=== PATIENT | male | born 1965 | race Caucasian/White ===

== ENCOUNTER 2017-08-29 13:56 | Emergency (ER) | payer BC, OTHER ==
[2017-08-29] MEDS: NORCO, ANEXSIA 5/325MG TABLET (HYDROcodone/ACETAMINOPHEN) PO (17:03)
== END 2017-08-29 17:17 | disposition home or self-care (01) ==
LOC: M ED 13:56
DX: S22.32XA Fracture of one rib, left side, initial encounter for closed fracture (principal); W00.0XXA Fall on same level due to ice and snow, initial encounter; Y92.018 Other place in single-family (private) house as the place of occurrence of the external cause; F17.210 Nicotine dependence, cigarettes, uncomplicated
CPT/HCPCS: 71100

== ENCOUNTER → 2020-05-18 | Outpatient (CLI) | payer BC ==
[~2020-05-18] MED LIST: HYDR-3715 PO; TESS100C PO
--- NOTE | 2020-05-18 09:48 | REP ---
INDICATION: ESSENTIAL HYPERTENSION AND TOBACCO USE. COMPARISON: Comparison chest x-ray April 10, 2007. TECHNIQUE: Two views.. FINDINGS: The lungs are well inflated and free of infiltrate. The pleural angles are sharp. The heart size is normal. Pulmonary vasculature is not increased. No significant bony abnormality is seen. IMPRESSION: Negative chest x-ray. <Electronically signed by Jose Shelton > 05/18/20 0944
[2020-05-18 10:20] LABS: BASO # 0.1 10^3/uL (0.0-0.2); BASO % 0.7 % (0.0-1.0); EOS # 0.1 10^3/uL (0.0-0.5); EOS % 0.6 % (0.0-3.0); HEMATOCRIT 49.2 % (42.0-52.0); HEMOGLOBIN 15.9 g/dl (13.5-17.5); LYMPH # 2.2 10^3/uL (1.5-5.0); LYMPH % 20.7 % (24.0-44.0); MEAN CORPUSCULAR HEMOGLOBIN 28.8 pg (27.0-33.0); MEAN CORPUSCULAR HGB CONC 32.3 g/dl (32.0-36.5); MEAN CORPUSCULAR VOLUME 89.1 fl (80.0-96.0); MONO # 0.6 10^3/uL (0.0-0.8); MONO % 5.6 % (0.0-5.0); NEUTROPHILS # 7.7 10^3/uL (1.5-8.5); PLATELET COUNT, AUTOMATED 210 10^3/uL (150-450); RED BLOOD COUNT 5.52 10^6/uL (4.30-6.10); WHITE BLOOD COUNT 10.7 10^3/uL (4.0-10.0)
[2020-05-18 10:48] LABS: HEMOGLOBIN A1c 5.9 %
[2020-05-18 11:03] LABS: ALT/SGPT 27 U/L (12-78); BILIRUBIN,TOTAL 0.4 MG/DL (0.2-1.0); BLOOD UREA NITROGEN 12 MG/DL (7-18); CALCIUM LEVEL 9.2 MG/DL (8.5-10.1); CARBON DIOXIDE LEVEL 30 MEQ/L (21-32); CHLORIDE LEVEL 105 MEQ/L (98-107); FREE T4 1.28 NG/DL (0.76-1.46); GLOMERULAR FILTRATION RATE > 60.0 (>56); GLUCOSE, FASTING 93 MG/DL (70-100); POTASSIUM SERUM 4.3 MEQ/L (3.5-5.1); SODIUM LEVEL 140 MEQ/L (136-145); TOTAL PROTEIN 7.2 GM/DL (6.4-8.2)
== END ==
LOC: M WUC 09:03
PROVIDERS: ATTEND Physician Assistant
DX: I10 Essential (primary) hypertension (principal); Z72.0 Tobacco use

== ENCOUNTER → 2020-08-11 | Outpatient (CLI) | payer BC ==
[2020-08-11 13:36] LABS: BASO # 0.1 10^3/uL (0.0-0.2); BASO % 0.9 % (0.0-1.0); EOS # 0.2 10^3/uL (0.0-0.5); EOS % 1.7 % (0.0-3.0); HEMATOCRIT 47.6 % (42.0-52.0); HEMOGLOBIN 15.3 g/dl (13.5-17.5); LYMPH # 2.3 10^3/uL (1.5-5.0); LYMPH % 25.9 % (24.0-44.0); MEAN CORPUSCULAR HEMOGLOBIN 29.1 pg (27.0-33.0); MEAN CORPUSCULAR HGB CONC 32.1 g/dl (32.0-36.5); MEAN CORPUSCULAR VOLUME 90.7 fl (80.0-96.0); MONO # 0.6 10^3/uL (0.0-0.8); MONO % 6.9 % (0.0-5.0); NEUTROPHILS # 5.8 10^3/uL (1.5-8.5); NEUTROPHILS % 64.4 % (36.0-66.0); PLATELET COUNT, AUTOMATED 194 10^3/uL (150-450); RED BLOOD COUNT 5.25 10^6/uL (4.30-6.10)
[2020-08-11 13:58] LABS: BLOOD UREA NITROGEN 12 MG/DL (7-18); CALCIUM LEVEL 9.1 MG/DL (8.5-10.1); CARBON DIOXIDE LEVEL 33 MEQ/L (21-32); CHLORIDE LEVEL 106 MEQ/L (98-107); CHOLESTEROL LEVEL 218 MG/DL (<200); CREATININE FOR GFR 0.77 MG/DL (0.70-1.30); GLOMERULAR FILTRATION RATE > 60.0 (>56); GLUCOSE, FASTING 106 MG/DL (70-100); HDL CHOLESTEROL 42 MG/DL (>40); LDL CHOLESTEROL 160 MG/DL (<100); NON-HDL-C 176 MG/DL; POTASSIUM SERUM 4.1 MEQ/L (3.5-5.1); SODIUM LEVEL 142 MEQ/L (136-145); TRIGLYCERIDES LEVEL 82 MG/DL (<150)
== END ==
LOC: M WUC 09:32
PROVIDERS: ATTEND Family Medicine
DX: D72.829 Elevated white blood cell count, unspecified (principal); I11.9 Hypertensive heart disease without heart failure; Z13.220 Encounter for screening for lipoid disorders

== ENCOUNTER → 2020-09-04 | Outpatient (CLI) | payer BC ==
[~2020-09-04] MED LIST changes: +ASPI81CH33 PO; +ATEN25TA PO; +ATOR80TA59 PO; +LISI20TA33 PO
== END ==
LOC: M LABSMTC 10:11
PROVIDERS: ATTEND Anesthesiology
DX: Z01.812 Encounter for preprocedural laboratory examination (principal); Z20.822 Contact with and (suspected) exposure to COVID-19

== ENCOUNTER 2020-09-09 08:09 | Day surgery (SDC) | payer BC ==
[~2020-09-09] VITALS: Ht 182.9 cm; Wt 99.7 kg
[~2020-09-09 08:09] MED LIST changes: +LIDOCAINE 2% 100MG/5ML SDV (FOR ANES.) As Ordered ONE; +NS 1,000 ML IV ONE; +propofoL 200 MG/20 ML VIAL As Ordered ONE
--- OUTSIDE RECORDS SUMMARY | 2020-09-09 08:14 | CCD ---
Author Author [facility] Organization [facility] Address Unknown Phone Unavailable Care Team Providers Care R&D Lab Technician Name Role Phone Violet Mendoza Unavailable PROBLEMS Type Condition ICD9-CM Code LYL98-UY Code Onset Dates Condition S tatus SNOMED Code Notes Problem Leukocytosis, unspecified D72.829 Active 349378 006 Problem Hypertensive heart disease without heart failure I 11.9 Active 08473632 ALLERGIES No Known Allergies ENCOUNTERS from 1965 to 2020-07-23 Encounter Location Date Provider Diagnosis [facility] [address] [place] [address] Jul Violet Mendoza IMMUNIZATIONS Vaccine Route Administration Date Status Influenza (18 yrs & older) Flublok IM Intramuscular Jul 20, 2020 Administered SOCIAL HISTORY Tobacco Use: Social History Observation Description Date Details (start date - stop date) Current Smoker Sex Assigned At : Social History Observation Description Sex Assigned At Unknown Education: Question Answer Notes Level of Education: Not finished High School Language: Question Answer Notes Languages spoken: Portuguese Shinto: Question Answer Notes Shinto No lutheran beliefs that would impact health care. Alcohol Screening: Question Answer Notes Did you have a drink containing alcohol in the past year? Ye s Points 2 Interpretation Negative How often did you have six or more drinks on one occas ion in the past year? Never (0 points) How many drinks did you have on a typica l day when you were drinking in the past year? 3 or 4 (1 point) How often did you have a drink containing alcohol in t he past year? Monthly or less (1 point) Tobacco Use: Question Answer Notes Are you a: current smoker How many cigarettes a day do you smoke? 21-30 Are you interested in quitting? Thinking about quitting REASON FOR REFERRAL No Information VITAL SIGNS No information MEDICATIONS Medication SIG (Take, Route, Frequency, Duration) Notes Start Da te End Date Status Lisinopril 10 MG 1 tablet Orally Once a day for 30 day(s) Jul, Active Atenolol 25 MG 1 tablet Orally Once a day for 30 day(s) Active Aspirin 325 MG 1 tablet Orally Once a day for 30 day(s) Active PROCEDURES No Information RESULTS No Results REASON FOR VISIT flu shot injection site rxn MEDICAL (GENERAL) HISTORY Type Description Date Medical History hypertension Surgical History No Surgical history information Goals Section No Information Health Concerns No Information MEDICAL EQUIPMENT No Information MENTAL STATUS No Information FUNCTIONAL STATUS No Information ASSESSMENTS No Information PLAN OF TREATMENT Medication Medication Name Sig Start Date Stop Date Lisinopril 10 MG 1 tablet Orally Once a day for 30 day(s) Jul Next Appt Details Provider Name:Violet Kelly, 2020-08 08:30:00 AM, [address] [place], [address], Insurance Providers Payer Name Payer Address Payer Phone Insured Name Patient Relati onship to Insured Coverage Start Date Coverage End Date [place] [id number] [address] [facility] [id number] [phone] PAULINE HAMMOND
--- OUTSIDE RECORDS SUMMARY | 2020-09-09 08:14 | CCD | Continuity of Care Document ---
Author Author Rik PEREZ PA Organization Unknown Address [address] [place] [address] [place] [address] Phone [phone] Care Team Providers Care Park Aide Name Role Phone [facility] Justin AUTM [phone] Michaela Garcia MD AUTM [phone] Problems Description No Information Available Social History Type Date Description Comments Sex Unknown ETOH Use Occasionally consumes alcohol Tobacco Use Start: Unknown Patient is a current smoker, smo kes every day 1 ppd Smoking Status Reviewed: 07/03/20 Patient is a current smoker, smokes every day 1 ppd Allergies, Adverse Reactions, Alerts Description No Known Drug Allergies Medications Active Medications SIG Qnty Indications Ordering Provide r Date Doxycycline Monohydrate 100mg Tabl ets 1 tab by mouth twice a day for 10 days 20tabs J20.9 Amarjit Pinzon JR., M.D. 07/03/2020 Atenolol 25mg Tablets 1 by mouth every day in am 30tabs I10 Amarjit Pinzon JR., M.D. 08/2019 History Medications No Active Medications Unknown 08/2019 - 05/18/2020 Immunizations Description No Information Available Vital Signs Date Vital Result Comment 07/03/2020 1:47pm BP Systolic 140 mmHg BP Diastolic 100 mmHg Heart Rate 68 /min Respiratory Rate 14 /min O2 % BldC Oximetry 95 % Body Temperature 96.9 F Weight 227.00 lb Height 72 inches 6'0" BMI (Body Mass Index) 30.8 kg/m2 Pain Level 0 05/26/2020 2:06pm BP Systolic 140 mmHg manual BP Diastolic 94 mmHg manual Results Test Acquired Date Facility Test Result H/L Range Note CBC With Differential 05/18/2020 [facility] [address] [place], [place] [id number] [phone] White Blood Count 10.7 10 High 4.0-10.0 1 Red Blood Count 5.52 10 Normal 4.30-6.10 Hemoglobin 15.9 g/dL Normal 13.5-17.5 Hematocrit 49.2 % Normal 42.0-52.0 Mean Corpuscular Volume 89.1 fl Normal 80.0-96.0 Mean Corpuscular Hemoglobin 28.8 pg Normal 27.0-33.0 Mean Corpuscular HGB Conc 32.3 g/dL Normal 32.0-36.5 Red Cell Distribution Width 13.8 % Normal 11.5-14.5 Platelet Count, Automated 210 10 Normal 150-450 Neutrophils % 72.0 % High 36.0-66.0 Lymph % 20.7 % Low 24.0-44.0 [place] % 5.6 % High 0.0-5.0 Eos % 0.6 % Normal 0.0-3.0 Baso % 0.7 % Normal 0.0-1.0 Immature Granulocyte % 0.4 % Normal 0-3.0 Nucleated Red Blood Cell % 0.0 % Normal 0-0 Neutrophils # 7.7 10 Normal 1.5-8.5 Lymph # 2.2 10 Normal 1.5-5.0 [place] # 0.6 10 Normal 0.0-0.8 Eos # 0.1 10 Normal 0.0-0.5 Baso # 0.1 10 Normal 0.0-0.2 Comprehensive Metabolic Profil 05/18/2020 [facility] [address] [place] [address] [phone] Glucose, Fasting 93 mg/dL Normal 70-100 Blood Urea Nitrogen 12 mg/dL Normal 7-18 Creatinine For GFR 0.80 mg/dL Normal 0.70-1.30 Glomerular Filtration Rate > 60.0 Normal >56 2 Sodium Level 140 mEq/L Normal 136-145 Potassium Serum 4.3 mEq/L Normal 3.5-5.1 Chloride Level 105 mEq/L Normal 98-107 Carbon Dioxide Level 30 mEq/L Normal 21-32 Anion Gap 5 mEq/L Low 8-16 Calcium Level 9.2 mg/dL Normal 8.5-10.1 Ast/Sgot 14 U/L Normal 7-37 Alt/SGPT 27 U/L Normal 12-78 Alkaline Phosphatase 89 U/L Normal 45-117 Bilirubin,Total 0.4 mg/dL Normal 0.2-1.0 Total Protein 7.2 GM/DL Normal 6.4-8.2 Albumin 4.0 GM/DL Normal 3.2-5.2 Albumin/Globulin Ratio 1.3 Normal Hemoglobin A1c 05/18/2020 [facility] [address] [place], [place] [id number] [phone] Hemoglobin A1c 5.9 % Normal 3 Estimated Average Glucose 123 mg/dL High 60-110 FT4&TSH Panel 05/18/2020 [facility] [address] [place], [place] [address] [phone] Thyroid Stimulating Hormone 1.350 uIU/ML Normal 0. 358-3.740 Free T4 1.28 ng/dL Normal 0.76-1.46 1 Patient contacted 2 Units are mL/min/1.73 m2 Chronic Kidney Disease Staging per NKF: Stage I & II GFR >=60 Normal to Mildly Decreased Stage III GFR 30-59 Moderately Decreased Stage IV GFR 15-29 Severely Decreased Stage V GFR <15 Very Little GFR Left ESRD GFR <15 on SHIPPING SUPPORT CLERK 3 REFERENCE RANGES: <=5.6% NORMAL 5.7-6.4% SUGGESTS IMPAIRED GLUCOSE META BOLISM/PREDIABETIC >= 6.5% ABNORMAL Procedures Date Code Description Status 05/18/2020 61707 Electrocardiogram Complete Compl eted Medical Devices Description No Information Available Encounters Type Date Location Provider Dx Diagnosis Office Visit 07/03/2020 2:35p Main Office MICHELLE Martin I10 Essential (primary) hypertension J20.9 Acute bronchitis, unspecifie d Z72.0 Tobacco use Office Visit 05/26/2020 2:40p Main Office MICHELLE Martin I10 Essential (primary) hypertension Z72.0 Tobacco use Office Visit 05/18/2020 8:30a Main Office MICHELLE Martin I10 Essential (primary) hypertension Z72.0 Tobacco use Assessments Date Code Description Provider 07/03/2020 I10 Essential (primary) hypertension MICHELLE Martin 07/03/2020 J20.9 Acute bronchitis, unspecified [place] MICHELLE Aguilar 07/03/2020 Z72.0 Tobacco use MICHELLE Shook 05/26/2020 I10 Essential (primary) hypertension MICHELLE Martin 05/26/2020 Z72.0 Tobacco use MICHELLE Shook 05/18/2020 I10 Essential (primary) hypertension MICHELLE Martin 05/18/2020 Z72.0 Tobacco use MICHELLE Shook Plan of Treatment 07/03/2020 - MICHELLE Martin* I10 Essential (primary) hypertension * J20.9 Acute bronchitis, unspecified* New Medication:* Doxycycline Monohydrate 100 mg - 1 tab by mouth twice a day for 10 days * Comments:* Warm fluids/tylenol/rest/time.f/u PRN * Z72.0 Tobacco use Functional Status Description No Information Available Mental Status Description No Information Available Referrals Refer to Reason for Referral Status Appt Date Gonzalez Perez PA complete eye examination. Ne w HTN. + tobacco use. Last eye examination 40 yrs ago. Scheduled 08/20/2020 [facility] [address] [place] [address] [phone]
--- OUTSIDE RECORDS SUMMARY | 2020-09-09 08:14 | CCD | Continuity of Care Document ---
Author Author Rik ALEJANDRA MD Organization Unknown Address [address] [address] Phone [phone] Care Team Providers Care [facility] Corpsman Name Role Phone Violet Mendoza D.O. AUTM [phone] Problems Active Problems Provider Date Essential hypertension Christo Alejandra MD Onset: 021 Social History Type Date Description Comments Sex Unknown ETOH Use Denies alcohol use Tobacco Use Start: Unknown Smokes 1 Pack A Day X38YRS Recreational Drug Use Denies Drug Use Allergies, Adverse Reactions, Alerts Description No Known Drug Allergies Medications Active Medications SIG Qnty Indications Ordering Provide r Date Lisinopril 10mg Tablets 1 by mouth every day Unknown Atenolol 25mg Tablets every d ay Unknown Aspirin Adult 325mg Tablets e very day Unknown Immunizations Description No Information Available Vital Signs Date Vital Result Comment 08/11/2020 11:32am BP Systolic 175 mmHg BP Diastolic 119 mmHg Heart Rate 63 /min Height 72 inches 6'0" Weight 230.25 lb BMI (Body Mass Index) 31.2 kg/m2 [place] Body Weight 178 lb Weight 104.441 kg BSA (Body Surface Area) 2.26 m2 Results Description No Information Available Procedures Description No Information Available Medical Devices Description No Information Available Encounters Description No Information Available Assessments Date Code Description Provider 08/11/2020 Z12.11 Encounter for screening for alla gnant neoplasm of colon Christo Alejandra MD 08/11/2020 Z85.038 Personal history of other malignant neoplasm of large intestine Christo Alejandra MD Plan of Treatment 08/11/2020 - Christo Alejandra MD* Z12.11 Encounter for screening for malignant neoplasm of colon* Comments:* 1. Discussed with patient the rationale for colon cancer screening as well as the different options for screening. Patient is average risk for colon cancer which is a risk up to 4.4% with 90% of colon cancer occuring after age 50. The incidence of colon cancer increases as a persistent ages. Discussed risk factors for colon cancer2. Discussed split dosed bowel prep.3.Discussed risks and benefits of colonoscopy including risks of bleeding and perforation, splenic laceration, risks from the iv sedation, risks from the bowel prep, and need for surgery if any significant bleeding and perforation occurs. Patient's questions and concerns addressed at this point. Patient has agreed to proceed. * Z85.038 Personal history of other malignant neoplasm of large intestine Functional Status Description No Information Available Mental Status Description No Information Available Referrals Refer to Reason for Referral Status Appt Date Christo Alejandra MD COLONOSCOPY Scheduled 08/05/[address] [place] [id number] [phone]
--- OUTSIDE RECORDS SUMMARY | 2020-09-09 08:14 | CCD ---
Author Author [facility] Organization [facility] Address Unknown Phone Unavailable Care Team Providers Care Fruit Inspector Name Role Phone Violet Mendoza Unavailable PROBLEMS Type Condition ICD9-CM Code MML69-KT Code Onset Dates Condition S tatus W/U Status Risk SNOMED Code Notes Problem Leukocytosis, unspecified D72.829 Active confirmed 110935430 Problem Dyslipidemia E78.5 Active confirmed 5959873 07 Problem Hypertensive heart disease without heart failure I 11.9 Active confirmed 21401968 ALLERGIES No Known Allergies ENCOUNTERS from 1965 to 2020-08-20 Encounter Location Date Provider Diagnosis [facility] [address] [place] [address] Aug Violet Mendoza IMMUNIZATIONS Vaccine Route Administration Date [...] School Language: Question Answer Notes Languages spoken: Wolof Christian: Question Answer Notes Christian No amish beliefs that would impact health care. Sexual Hx: Question Answer Notes Had sex in the last 12 months (vaginal, oral, or anal)? Yes Have you ever had an STD? No with Women only Use protection? No Alcohol Screening: Question Answer Notes Did you [...] Notes Start Da te End Date Status Atenolol 25 MG 1 tablet Orally Once a day for 90 days Active Aspirin 325 MG 1 tablet Orally Once a day for 30 day(s) Active Lisinopril 20 MG 1 tablet Orally Once a day for 90 day(s) Aug, Active Atorvastatin Calcium 80 MG 1 tablet Orally Once a day for 30 day (s) Aug, Active PROCEDURES No Information RESULTS No Results REASON FOR VISIT med question MEDICAL (GENERAL) HISTORY Type Description Date Medical History hypertension Surgical History No know Surgical history Goals Section No Information Health Concerns No Information MEDICAL EQUIPMENT No Information MENTAL STATUS No Information FUNCTIONAL STATUS No Information ASSESSMENTS No Information PLAN OF TREATMENT Medication Medication Name Sig Start Date Stop Date Atenolol 25 MG 1 tablet Orally Once a day for 90 days Lisinopril 20 MG 1 tablet Orally Once a day for 90 day(s) Aug Atorvastatin Calcium 80 MG 1 tablet Orally Once a day for 30 day(s) Aug, Next Appt Details Provider Name:Violet Grimaldoleo 2020-09 08:00:00 AM, [address] [place], [address], Insurance Providers Payer Name Payer Address Payer Phone Insured Name Patient Relati onship to Insured Coverage Start Date Coverage End Date DENYS PONCE [facility] [address] [facility] [id number] PAULINE LEON
--- OUTSIDE RECORDS SUMMARY | 2020-09-09 08:14 | CCD ---
Author Author [facility] Organization [facility] Address Unknown Phone Unavailable Care Team Providers Care Call Circuit Worker Name Role Phone DillanMic baileygan Unavailable PROBLEMS Type Condition ICD9-CM Code HHW48-JD Code Onset Dates Condition S tatus W/U Status Risk SNOMED Code Notes Problem Leukocytosis, unspecified D72.829 Active confirmed 883759247 Problem Dyslipidemia E78.5 Active confirmed 4514144 07 Problem Hypertensive heart disease without heart failure I 11.9 Active confirmed 21572224 ALLERGIES No Known Allergies ENCOUNTERS from 1965 to 2020-08-21 Encounter Location Date Provider Diagnosis [facility] [address] [place] [id number] Aug Violet Mendoza Hypertensive heart disease without heart failure I11.9 ; Leukocytosis, unspecified D72.829 and Dyslipidemia E78.5 IMMUNIZATIONS Vaccine Route Administration Date Status Influenza [...] School Language: Question Answer Notes Languages spoken: Sami Orthodoxy: Question Answer Notes Orthodoxy No baptist beliefs that would impact health care. Sexual [...] REASON FOR REFERRAL No Information VITAL SIGNS Weight 227 lbs Aug, Height 6' in Aug, BMI 30.78 kg/m2 Aug, Heart Rate 72 /min Aug, Respiratory Rate 18 /min Aug, Temperature 98.0 degrees Fahrenheit Aug, Oximetry 94%RA Aug, Blood pressure systolic 157 mm Hg Aug, Blood pressure diastolic 96 mm Hg Aug, MEDICATIONS Medication SIG (Take, Route, Frequency, Duration) [...] Information RESULTS No Results REASON FOR VISIT follow up blood pressure MEDICAL (GENERAL) HISTORY Type Description Date Medical History hypertension Surgical History No know Surgical history Goals Section No Information Health Concerns No Information MEDICAL EQUIPMENT No Information MENTAL STATUS No Information FUNCTIONAL STATUS No Information ASSESSMENTS Encounter Date Diagnosis Assessment Notes Treatment Notes Treatm ent Clinical Notes Aug, Hypertensive heart disease without heart failure (ICD-10 - I11.9) As blood pressure is still elevated it was recommended that dose of lisinopril be increased to 20 mg daily. Follow-up in 1 month to monitor for response to treatment. BMP prior to monitor electrolytes, renal function Aug, Leukocytosis, unspecified (ICD-10 - D72.829) Resolved, no further treatment needed at this time Aug, Dyslipidemia (ICD-10 - E78.5) Patient with elevated ten-year ASCVD risk of 22%. Based on cardiac risk recommended starting statin therapy. Patient advised about potential adverse effects: Muscle aches and pains, rhabdomyolysis. If patient develops aches or pains, they should stop medication and call our office. If patient develops rhabdomyolysis which would present as dark Coca-Cola colored urine that they should stop medication and seek immediate medical attention. PLAN OF TREATMENT Medication Medication Name Sig Start Date Stop Date Atenolol 25 MG 1 tablet Orally Once a day for 90 days Lisinopril 20 MG 1 tablet Orally Once a day for 90 day(s) Aug Atorvastatin Calcium 80 MG 1 tablet Orally Once a day for 30 day(s) Aug, Treatment Notes Assessment Notes Clinical Notes Hypertensive heart disease without heart failure As blood pressure is still elevated it was recommended that dose of lisinopril be increased to 20 mg daily. Follow-up in 1 month to monitor for response to treatment. BMP prior to monitor electrolytes, renal function Leukocytosis, unspecified Resolved, no f urther treatment needed at this time Dyslipidemia Patient with elevate d ten-year ASCVD risk of 22%. Based on cardiac risk recommended starting statin therapy. Patient advised about potential adverse effects: Muscle aches and pains, rhabdomyolysis. If patient develops aches or pains, they should stop medication and call our office. If patient develops rhabdomyolysis which would present as dark Coca-Cola colored urine that they should stop medication and seek immediate medical attention. Future Test Test Name Order Date Basic Metabolic Profile (BMP) 20200915 Next Appt Details 4 Weeks: follow up blood pressure Reason : Provider Name:Violet Mendoza, 2020-09 08:00:00 AM, [address] [place], [address], Insurance Providers Payer Name Payer Address Payer Phone Insured Name Patient Relati onship to Insured Coverage Start Date Coverage End Date [place] [address] [address] [facility] [id number] PAULINE LEON self
--- OUTSIDE RECORDS SUMMARY | 2020-09-09 08:14 | CCD | Continuity of Care Document ---
Author Author Rik PEREZ PA Organization Unknown Address [address] [place] [address] [place] [address] Phone [phone] Care Team Providers Care Stone Sawyer Name Role Phone [facility] Justin AUTM [phone] Michaela Garcia MD AUTM [phone] Problems Description No Information Available Social History [...] H/L Range Note CBC With Differential 05/18/2020 [facility] [address] [place], [place] [id number] [phone] White Blood Count 10.7 10 High 4.0-10.0 [...] 36.0-66.0 Lymph % 20.7 % Low 24.0-44.0 [place] % 5.6 % High 0.0-5.0 Eos % 0.6 % Normal 0.0-3.0 Baso % 0.7 % Normal 0.0-1.0 Immature Granulocyte % 0.4 % Normal 0-3.0 Nucleated Red Blood Cell % 0.0 % Normal 0-0 Neutrophils # 7.7 10 Normal 1.5-8.5 Lymph # 2.2 10 Normal 1.5-5.0 [place] # 0.6 10 Normal 0.0-0.8 Eos # 0.1 10 Normal 0.0-0.5 Baso # 0.1 10 Normal 0.0-0.2 Comprehensive Metabolic Profil 05/18/2020 [facility] [address] [place] [address] [phone] Glucose, Fasting 93 mg/dL Normal 70-100 Blood [...] Albumin/Globulin Ratio 1.3 Normal Hemoglobin A1c 05/18/2020 [facility] [address] [place], [place] [id number] [phone] Hemoglobin A1c 5.9 % Normal 3 Estimated Average Glucose 123 mg/dL High 60-110 FT4&TSH Panel 05/18/2020 [facility] [address] [place], [place] [id number] [phone] Thyroid Stimulating Hormone 1.350 uIU/ML Normal 0. 358-3.740 Free T4 1.28 ng/dL Normal 0.76-1.46 1 Patient contacted 2 Units are mL/min/1.73 m2 Chronic Kidney Disease Staging per NKF: Stage I & II GFR >=60 Normal to Mildly Decreased Stage III GFR 30-59 Moderately Decreased Stage IV GFR 15-29 Severely Decreased Stage V GFR <15 Very Little GFR Left ESRD GFR <15 on SLEEPER CUTTER 3 REFERENCE RANGES: <=5.6% NORMAL 5.7-6.4% SUGGESTS IMPAIRED GLUCOSE META BOLISM/PREDIABETIC >= 6.5% ABNORMAL Procedures Date Code Description Status 05/18/2020 93210 Electrocardiogram Complete Compl eted Medical Devices Description [...] eye examination 40 yrs ago. Scheduled 08/20/2020 [facility] [address] [place] [address] [phone]
--- OUTSIDE RECORDS SUMMARY | 2020-09-09 08:14 | CCD ---
Author Author [facility] Organization [facility] Address Unknown Phone Unavailable Care Team Providers Care All Terrain Vehicle Technician Name Role Phone Kelly Violet Unavailable PROBLEMS Type Condition ICD9-CM Code WEM76-SC Code Onset Dates Condition S tatus SNOMED Code Notes Problem Leukocytosis, unspecified D72.829 Active 078654 006 Problem Hypertensive heart disease without heart failure I 11.9 Active [id number] ALLERGIES No Known Allergies ENCOUNTERS from 1965 to 2020-07-22 Encounter Location Date Provider Diagnosis [facility] [address] [place] [address] 04 Jul Violet Mendoza Hypertensive heart disease without heart failure I11.9 ; Leukocytosis, unspecified D72.829 ; Prediabetes R73.03 ; Family history of colon cancer Z80.0 ; Colon cancer screening Z12.11 ; Lipid screening Z13.220 and Encounter for immunization Z23 IMMUNIZATIONS Vaccine Route Administration Date Status Influenza [...] School Language: Question Answer Notes Languages spoken: Prydeinig Restoration: Question Answer Notes Restoration No voodoo beliefs that would impact health care. Alcohol [...] No Information VITAL SIGNS Weight 227 lbs lbs Jul, Height 6' in Jul, BMI 30.78 kg/m2 Jul, Heart Rate 66 /min Jul, Respiratory Rate 18 /min Jul, Temperature 98.4 degrees Fahrenheit Jul, Oximetry 97%ra Jul, Blood pressure systolic 151 mm Hg Jul, Blood pressure diastolic 90 mm Hg Jul, MEDICATIONS Medication SIG (Take, Route, Frequency, Duration) Notes Start Da te End Date Status Lisinopril 10 MG 1 tablet Orally Once a day for 30 day(s) Jul, Active Atenolol 25 MG 1 tablet Orally Once a day for 30 day(s) Active Aspirin 325 MG 1 tablet Orally Once a day for 30 day(s) Active PROCEDURES No Information RESULTS No Results REASON FOR VISIT to est MEDICAL (GENERAL) HISTORY Type Description Date Medical History hypertension Surgical History No Surgical history information Goals Section No Information Health Concerns No Information MEDICAL EQUIPMENT No Information MENTAL STATUS No Information FUNCTIONAL STATUS No Information ASSESSMENTS Encounter Date Diagnosis Assessment Notes Treatment Notes Treatm ent Clinical Notes Jul, Hypertensive heart disease without heart failure (ICD-10 - I11.9) As patient's blood pressure remains elevated patient will be started on 10 mg of daily lisinopril. Counseled about potential adverse effects of medication including dizziness, lightheadedness, electrolyte disturbance. Jul, Leukocytosis, unspecified (ICD-10 - D72.829) We will repeat CBC with next blood work Jul, Prediabetes (ICD-10 - R73.03) Will monitor with repeat hemoglobin A1c in 6-12 months Jul, Family history of colon cancer (ICD-10 - Z80.0) Patient agreeable to referral for screening colonoscopy Jul, Colon cancer screening (ICD-10 - Z12.11) Jul, Lipid screening (ICD-10 - Z13.220) Lipid screen will be performed with next set of blood work Jul, Encounter for immunization (ICD-10 - Z23) Patient Educated with: FLU Vaccine, Inactivated [id number] (FLU Vaccine, Inactivated [id number]) PLAN OF TREATMENT Medication Medication Name Sig Start Date Stop Date Lisinopril 10 MG 1 tablet Orally Once a day for 30 day(s) Jul Treatment Notes Assessment Notes Clinical Notes Hypertensive heart disease without heart failure As patient's blood pressure remains elevated patient will be started on 10 mg of daily lisinopril. Counseled about potential adverse effects of medication including dizziness, lightheadedness, electrolyte disturbance. Leukocytosis, unspecified We will repeat CBC with next blood work Prediabetes Will monitor with re peat hemoglobin A1c in 6-12 months Family history of colon cancer Patient a greeable to referral for screening colonoscopy Lipid screening Lipid screen will be performed with next set of blood work Encounter for immunization Patient Educated with: FLU Vaccine, Inactivated [id number] (FLU Vaccine, Inactivated [id number]) Treatment Notes Test Name Order Date Immunization: Flublok Quadrivalent (18 years & older) 0.5mL IM (Influenza) 2020-07-22 Future Test Test Name Order Date CBC with Differential [id number] Basic Metabolic Profile (BMP) [id number] LIPID PANEL (CARDIAC RISK) [id number] Next Appt Details 4 Weeks: follow up blood pressure Reason : Provider Name:Violet Mendoza, 2020-08 08:30:00 AM, [address] [place], [address], Insurance Providers Payer Name Payer Address Payer Phone Insured Name Patient Relati onship to Insured Coverage Start Date Coverage End Date [employer] [place] [id number] [address] [facility] [id number] [place]
--- OUTSIDE RECORDS SUMMARY | 2020-09-09 08:15 | CCD ---
Author Author [facility] Organization [facility] Address Unknown Phone Unavailable Care Team Providers Care Loss Prevention Specialist Name Role Phone Lester, W Matthew RPA-C Unavailable Unavailable Lester, W Matthew RPA-C Unavailable Unavailable Lester, W Matthew RPA-C Unavailable Unavailable Lester, W Matthew RPA-C Unavailable Unavailable Lester, W Matthew RPA-C Unavailable Unavailable Lester, W Matthew RPA-C Unavailable Unavailable Lester, W Matthew RPA-C Unavailable Unavailable Lester, W Matthew RPA-C Unavailable Unavailable Lester, W Matthew RPA-C Unavailable Unavailable Lester, W Matthew RPA-C Unavailable Unavailable Lester, W Matthew RPA-C Unavailable Unavailable Lester, W Matthew RPA-C Unavailable Unavailable Lester, W Matthew RPA-C Unavailable Unavailable Lester, W Matthew RPA-C Unavailable Unavailable Lester, W Matthew RPA-C Unavailable Unavailable Lester, W Matthew RPA-C Unavailable Unavailable DEBORAH, RAMIREZ PAUL PA Unavailable Unavailable DEBORAH, RAMIREZ PAUL PA Unavailable Unavailable DEBORAH, RAMIREZ PAUL PA Unavailable Unavailable DEBORAH, RAMIREZ PAUL PA Unavailable Unavailable DEBORAH, RAMIREZ PAUL PA Unavailable Unavailable DEBORAH, RAMIREZ PAUL PA Unavailable Unavailable DEBORAH, RAMIREZ PAUL PA Unavailable Unavailable DEBORAH, RAMIREZ PAUL PA Unavailable Unavailable DEBORAH, RAMIREZ PAUL PA Unavailable Unavailable DEBORAH, RAMIREZ PAUL PA Unavailable Unavailable DEBORAH, RAMIREZ PAUL PA Unavailable Unavailable DEBORAH, RAMIREZ PAUL PA Unavailable Unavailable DEBORAH, RAMIREZ PAUL PA Unavailable Unavailable DEBORAH, RAMIREZ PAUL PA Unavailable Unavailable DEBORAH, RAMIREZ PAUL PA Unavailable Unavailable DEBORAH, RAMIREZ PAUL PA Unavailable Unavailable DEBORAH, RAMIREZ PAUL PA Unavailable Unavailable DEBORAH, RAMIREZ PAUL PA Unavailable Unavailable DEBORAH, RAMIREZ PAUL PA Unavailable Unavailable DEBORAH, RAMIREZ PAUL PA Unavailable Unavailable DEBORAH, RAMIREZ PAUL PA Unavailable Unavailable DEBORAH, RAMIREZ PAUL PA Unavailable Unavailable LETTIERE, A IAN PA Unavailable Unavailable LETTIERE, A IAN PA Unavailable Unavailable LETTIERE, A IAN PA Unavailable Unavailable LETTIERE, A IAN PA Unavailable Unavailable LETTIERE, A IAN PA Unavailable Unavailable LETTIERE, A IAN PA Unavailable Unavailable LETTIERE, A IAN PA Unavailable Unavailable LETTIERE, A IAN PA Unavailable Unavailable LETTIERE, A IAN PA Unavailable Unavailable LETTIERE, A IAN PA Unavailable Unavailable LETTIERE, A IAN PA Unavailable Unavailable LETTIERE, A IAN PA Unavailable Unavailable LETTIERE, A IAN PA Unavailable Unavailable LETTIERE, A IAN PA Unavailable Unavailable LETTIERE, A IAN PA Unavailable Unavailable LETTIERE, A IAN PA Unavailable Unavailable LETTIERE, A IAN PA Unavailable Unavailable LETTIERE, A IAN PA Unavailable Unavailable LETTIERE, A IAN PA Unavailable Unavailable LETTIERE, A IAN PA Unavailable Unavailable LETTIERE, A IAN PA Unavailable Unavailable LETTIERE, A IAN PA Unavailable Unavailable LETTIERE, A IAN PA Unavailable Unavailable LETTIERE, A IAN PA Unavailable Unavailable LETTIERE, A IAN PA Unavailable Unavailable LETTIERE, A IAN PA Unavailable Unavailable LETTIERE, A IAN PA Unavailable Unavailable LETTIERE, A IAN PA Unavailable Unavailable LETTIERE, A IAN PA Unavailable Unavailable Re-disclosure Warning The records that you are about to access may contain information from federally-assisted alcohol or drug abuse programs. If such information is present, then the following federally mandated warning applies: This information has been disclosed to you from records protected by federal confidentiality rules (42 CFR part 2). The federal rules prohibit you from making any further disclosure of this information unless further disclosure is expressly permitted by the written consent of the person to whom it pertains or as otherwise permitted by 42 CFR part 2. A general authorization for the release of medical or other information is NOT sufficient for this purpose. The Federal rules restrict any use of the information to criminally investigate or prosecute any alcohol or drug abuse patient.The records that you are about to access may contain highly sensitive health information, the redisclosure of which is protected by Article 27-F of the [facility] Public Health law. If you continue you may have access to information: Regarding HIV / AIDS; Provided by facilities licensed or operated by the [facility] Office of Mental Health; or Provided by the [facility] Office for People With Developmental Disabilities. If such information is present, then the following [facility] mandated warning applies: This information has been disclosed to you from confidential records which are protected by state law. State law prohibits you from making any further disclosure of this information without the specific written consent of the person to whom it pertains, or as otherwise permitted by law. Any unauthorized further disclosure in violation of state law may result in a fine or snf sentence or both. A general authorization for the release of medical or other information is NOT sufficient authorization for further disc losure. Encounters Encounter Providers Location Date Indications Data Source(s ) Unknown [address] [facility] [address] 08/19/2020 12:00:00 AM EST eCW1 (Critical access hospital) Outpatient [address] [facility] [place] [address] 08/18/2020 12:00:00 AM EST eCW1 (Critical access hospital) [place] [address] [facility] [place] [address] 07/22/2020 12:00:00 AM EST eCW1 (Critical access hospital) Outpatient [address] [facility] [place] [address] 07/20/2020 12:00:00 AM EST eCW1 (Critical access hospital) Outpatient Attender: IAN Ruth Prim jeromy 07/03/2020 01:35:00 PM EST [facility] ([facility]) Outpatient Attender: IAN Ruth Prim jeromy 05/26/2020 01:40:00 PM EST MED[facility] ([facility]) Outpatient Attender: IAN Ruth Prim jeromy 05/18/2020 07:30:00 AM EST [facility] ([facility], [facility]) Emergency Attender: Matthew Lester RPA-C 07:20:00 PM EST - 07/12/2019 07:50:00 PM [facility] Patient discharged. Emergency Attender: PAUL MARTINEZ 01:17:00 PM EDT - 12/09/2018 02:18:00 PM [facility] Patient discharged. Immunizations Vaccine Date Status Description Data Source(s) influenza, recombinant, quadrIvalent,injectable, prese rvative free 07/20/2020 11:21:00 AM EST completed eCW1 ([facility]) influenza, recombinant, quadrIvalent,injectable, prese rvative free 07/20/2020 11:21:00 AM EST completed eCW1 ([facility]) influenza, recombinant, quadrIvalent,injectable, prese rvative free 07/20/2020 11:21:00 AM EST completed eCW1 ([facility]) influenza, recombinant, quadrIvalent,injectable, prese rvative free 07/20/2020 11:21:00 AM EST completed eCW1 ([facility]) Medications Medication Brand Name Start Date Product Form Dose Route Admi nistrative Instructions Pharmacy Instructions Status Indications Reaction Description Data Source(s) 17.5-3.13-1.6 gram 09/02/2020 12:00:00 AM EST recon soln 354 DIRECTED BY CORNELL BOWEL PREP INSTRUCTIONS DIRECTED BY CORNELL BOWEL PREP INSTRUCTIONS SOLD: 09/05/2020 [facility] Lisinopril 20 MG Oral Tablet Lisinopril 20 MG 08/18/2020 12:00:00 A M EST 1.0 {tablet} active Lisinopril 20 MG eCW1 ( [facility]) Lisinopril 20 MG Oral Tablet Lisinopril 20 MG 08/18/2020 12:00:00 A M EST 1.0 {tablet} active Lisinopril 20 MG eCW1 ( [facility]) atorvastatin 80 MG Oral Tablet Atorvastatin Calcium 80 MG Atorvastatin Calcium 80 MG 08/18/2020 12:00:00 AM EST 1.0 {tablet} activ e Atorvastatin Calcium 80 MG eCW1 ([facility]) atorvastatin 80 MG Oral Tablet Atorvastatin Calcium 80 MG Atorvastatin Calcium 80 MG 08/18/2020 12:00:00 AM EST 1.0 {tablet} activ e Atorvastatin Calcium 80 MG eCW1 ([facility]) Lisinopril 10 MG Oral Tablet Lisinopril 10 MG 07/20/2020 12:00:00 A M EST 1.0 {tablet} active Lisinopril 10 MG eCW1 ( [facility]) Lisinopril 10 MG Oral Tablet Lisinopril 10 MG 07/20/2020 12:00:00 A M EST 1.0 {tablet} active Lisinopril 10 MG eCW1 ( [facility]) 100 mg 07/03/2020 12:00:00 AM EST tablet 20 TAKE ONE TABLET BY MOUTH TWICE A DAY FOR 10 DAYS TAKE ONE TABLET BY MOUTH TWICE A DAY FOR 10 DAYS SOLD: 07/03/2020 [facility] Doxycycline Monohydrate 100 MG Oral Tablet Doxycycline Monoh ydrate 07/03/2020 12:00:00 AM EST ORAL active M EDENT ([facility]) Atenolol 25 MG Oral Tablet ATENOLOL 05/18/2020 12:00:00 AM EST tablet 30 TAKE ONE TABLET BY MOUTH EVERY MORNING TAKE ONE TABLET BY MOUTH EVERY MORNING SOLD: 05/18/2020 [facility] No Active Medications 05/18/2020 12:00:00 AM EST completed [facility] ([facility]) Atenolol 25 MG Oral Tablet ATENOLOL 05/18/2020 12:00:00 AM EST tablet 30 TAKE ONE TABLET BY MOUTH EVERY MORNING TAKE ONE TABLET BY MOUTH EVERY MORNING SOLD: 07/16/2020 [facility] Atenolol 25 MG Oral Tablet ATENOLOL 05/18/2020 12:00:00 AM EST tablet 30 TAKE ONE TABLET BY MOUTH EVERY MORNING TAKE ONE TABLET BY MOUTH EVERY MORNING SOLD: 06/13/2020 [facility] Atenolol 25 MG Oral Tablet Atenolol 05/18/2020 12:00:00 AM EST ORAL active [facility] ([facility], [facility]) Insurance Providers Payer name Policy type / Coverage type Policy ID Covered constitution party ID Covered constitution party's relationship to moreno Policy Moreno Plan Information [employer] [id number] SP [id number] [employer] [id number] SP [id number] [facility] FEDERAL EMPLOYEE PROGRAM [id number] SP [id number] [facility] [id number] S [id number] [employer] OF [facility] [id number] S [id number] [facility] SELF INSURED [id number] [id number] Problems, Conditions, and Diagnoses Code Display Name Description Problem Type Effective Dates Data Source(s) E78.5 [id number] Dyslipidemia Problem 08/18/2020 12:00:00 AM EST eCW1 ([facility]) [id number] Essential hypertension Essential hypertension Problem 08/04/2020 12:00:00 AM EST [facility] ([facility], ) I11.9 [id number] Hypertensive heart disease without heart failure Problem 07/20/2020 12:00:00 AM EST W1 ([facility]) D72.829 [id number] Leukocytosis, unspecified Problem 07/20/2020 12:00:00 AM EST eCW1 ([facility]) R22.31 Localized swelling, mass and lump, right upper limb LOCALIZED SWELLING, MASS AND LUMP, RIGHT UPPER MURO Diagnosis 07/12/2019 07:20:00 PM [facility] L50.9 Urticaria, unspecified URTICARIA, UNSPECIFIED Diagnosi s 07/12/2019 07:20:00 PM [facility] L98.9 Disorder of the skin and subcutaneous ti ssue, unspecified DISORDER OF THE SKIN AND SUBCUTANEOUS TISSUE, UNSPECIFIED Diagnosis 07/12/2019 07:20:0 0 PM [facility] Surgeries/Procedures Procedure Description Date Indications Data Source(s) ECG ROUTINE ECG W/LEAST 12 LDS W/I&R 05/18/2020 12:00: 00 AM EST [facility] ([facility]) Results ID Date Data Source [id number] 09/04/2020 10:12:00 AM EST [facility] Name Value Range Interpretation Code Description Data Noelle rce(s) Supporting Document(s) SARS coronavirus 2 RNA Not Detected [facility] [place] This lab was ordered by [facility] and reported by [facility]. ID Date Data Source [id number] 05/18/2020 09:04:00 AM EST [facility] ([facility]) Name Value Range Interpretation Code Description Data Noelle rce(s) Supporting Document(s) Thyroid Stimulating Hormone 1.350 uIU/ML 0.358-3.740 [facility] ([facility]) Patient contacted Free T4 1.28 ng/dL 0.76-1.46 [facility] ([facility]) Patient contacted ID Date Data Source [id number] 05/18/2020 09:04:00 AM EST [facility] ([facility]) Name Value Range Interpretation Code Description Data Noelle rce(s) Supporting Document(s) Hemoglobin A1c 5.9 % [facility] ([facility]) Patient contacted Estimated Average Glucose 123 mg/dL 60-110 [facility] ([facility]) Patient contacted ID Date Data Source [id number] 05/18/2020 09:04:00 AM EST [facility] ([facility]) Name Value Range Interpretation Code Description Data Noelle rce(s) Supporting Document(s) Blood Urea Nitrogen 12 mg/dL 7-18 [facility] ([facility]) Patient contacted Glucose, Fasting 93 mg/dL 70-100 [facility] ([facility]) Patient contacted Creatinine For GFR 0.80 mg/dL 0.70-1.30 [facility] ([facility]) Patient contacted Potassium Serum 4.3 meq/L 3.5-5.1 [facility] ([facility]) Patient contacted Glomerular Filtration Rate Laboratory test result [facility] ([facility]) Patient contacted Sodium Level 140 meq/L 136-145 [facility] ([facility]) Patient contacted Chloride Level 105 meq/L 98-107 [facility] ([facility]) Patient contacted Carbon Dioxide Level 30 meq/L 21-32 [facility] ([facility]) Patient contacted Anion Gap 5 meq/L 8-16 [facility] ([facility]) Patient contacted Calcium Level 9.2 mg/dL 8.5-10.1 [facility] ([facility]) Patient contacted Alkaline Phosphatase 89 U/L 45-117 [facility] ([facility]) Patient contacted Alt/SGPT 27 U/L 12-78 [facility] ([facility]) Patient contacted Ast/Sgot 14 U/L 7-37 [facility] ([facility]) Patient contacted Bilirubin,Total 0.4 mg/dL 0.2-1.0 [facility] ([facility]) Patient contacted Total Protein 7.2 GM/DL 6.4-8.2 [facility] ([facility]) Patient contacted Albumin/Globulin Ratio 1.3 [facility] ([facility]) Patient contacted Albumin 4.0 GM/DL 3.2-5.2 [facility] ([facility]) Patient contacted ID Date Data Source [id number] 05/18/2020 09:04:00 AM EST [facility] ([facility]) Name Value Range Interpretation Code Description Data Noelle rce(s) Supporting Document(s) White Blood Count 10.7 10 4.0-10.0 [facility] ([facility]) Patient contacted Hemoglobin 15.9 g/dL 13.5-17.5 [facility] ([facility]) Patient contacted Hematocrit 49.2 % 42.0-52.0 [facility] ([facility]) Patient contacted Red Blood Count 5.52 10 4.30-6.10 [facility] ([facility]) Patient contacted Mean Corpuscular Hemoglobin 28.8 pg 27.0-33.0 [facility] ([facility], [facility]) Patient contacted Mean Corpuscular Volume 89.1 fl 80.0-96.0 M EDENT ([facility]) Patient contacted Mean Corpuscular HGB Conc 32.3 g/dL 32.0-36.5 [facility] ([facility]) Patient contacted Neutrophils % 72.0 % 36.0-66.0 [facility] ([facility]) Patient contacted Platelet Count, Automated 210 10 150-450 [facility] ([facility]) Patient contacted Red Cell Distribution Width 13.8 % 11.5-14.5 [facility] ([facility]) Patient contacted Lymph % 20.7 % 24.0-44.0 [facility] ([facility]) Patient contacted Eos % 0.6 % 0.0-3.0 [facility] ([facility]) Patient contacted Clayton % 5.6 % 0.0-5.0 [facility] ([facility]) Patient contacted Immature Granulocyte % 0.4 % 0-3.0 [facility] ([facility]) Patient contacted Nucleated Red Blood Cell % 0.0 % 0-0 [facility] ([facility]) Patient contacted Baso % 0.7 % 0.0-1.0 [facility] ([facility], [facility]) Patient contacted Neutrophils # 7.7 10 1.5-8.5 [facility] ([facility], [facility]) Patient contacted Lymph # 2.2 10 1.5-5.0 [facility] ([facility], [facility]) Patient contacted Eos # 0.1 10 0.0-0.5 [facility] ([facility], [facility]) Patient contacted Baso # 0.1 10 0.0-0.2 [facility] ([facility], [facility]) Patient contacted Clayton # 0.6 10 0.0-0.8 [facility] ([facility]) Patient contacted ID Date Data Source [id number] 07/12/2019 11:48:00 PM EST [facility] Patient: PAULINE LEON Observation Rep ort - [facility].VisitID: [id number] [place] [address] [phone], MRegistration Date/Time: 07/12/2019 18:37 Weight:113.3 kg. Height/Length:72 inches. BMI:33.9 PAST HISTORYProblems:No chronic problems. Additional Surgeries:None. Medications:None. Allergies:No Known Drug Allergy. FAMILY HISTORYNegative - denies family medical history. INSTRUCTIONSYour Current Medications: .No home medication. (Electronically signed by Sami Guerrero PGarett 07/12/2019 23:44) Name Value Range Interpretation Code Description Data Noelle rce(s) Supporting Document(s) Procedure Social History Code Duration Value Status Description Data Source(s ) Smoking 08/18/2020 12:00:00 AM EST Current Smoker completed Curre nt Smoker eCW1 ([facility]) Smoking 08/18/2020 12:00:00 AM EST Current Smoker completed Curre nt Smoker eCW1 ([facility]) Smoking 07/20/2020 12:00:00 AM EST Current Smoker completed Curre nt Smoker eCW1 ([facility]) Smoking 07/20/2020 12:00:00 AM EST Current Smoker completed Curre nt Smoker eCW1 ([facility]) Vital Signs ID Date Data Source UNK Name Value Range Interpretation Code Description Data Source(s) Diastolic blood pressure 96 mm[Hg] 96 mm[Hg] eCW1 ([facility]) Systolic blood pressure 157 mm[Hg] 157 mm[Hg] e CW1 ([facility]) Body temperature 98.0 [degF] 98.0 [degF] eCW1 ( [facility]) Respiratory rate 18 /min 18 /min eCW1 ([facility]) Heart rate 72 /min 72 /min eCW1 ([facility]) Body mass index (BMI) [Ratio] 30.78 kg/m2 30.78 kg/m2 eCW1 ([facility]) Body height [in_i] eCW1 ([facility]) Body weight 227 [lb_av] 227 [lb_av] eCW1 ([facility]) Body surface area Derived from formula 2.26 m2 2.26 m2 MED[facility] ([facility]) Body weight 104.441 kg 104.441 kg [facility] ([facility]) Malone body weight 178 [lb_av] 178 [lb_av] MEDEN T ([facility]) Body mass index (BMI) [Ratio] 31.2 kg/m2 31.2 k g/m2 [facility] ([facility]) Body weight 230.25 [lb_av] 230.25 [lb_av] MEDEN T ([facility]) Body height 72 [in_i] 72 [in_i] [facility] ([facility]) 6'0" Heart rate 63 /min 63 /min [facility] ([facility]) Diastolic blood pressure 119 mm[Hg] 119 mm[Hg] [facility] ([facility]) Systolic blood pressure 175 mm[Hg] 175 mm[Hg] M EDENT ([facility]) Diastolic blood pressure 90 mm[Hg] 90 mm[Hg] eCW1 ([facility]) Systolic blood pressure 151 mm[Hg] 151 mm[Hg] e CW1 ([facility]) Body temperature 98.4 [degF] 98.4 [degF] eCW1 ( [facility]) Respiratory rate 18 /min 18 /min eCW1 ([facility]) Heart rate 66 /min 66 /min eCW1 ([facility]) Body mass index (BMI) [Ratio] 30.78 kg/m2 30.78 kg/m2 eCW1 ([facility]) Body height [in_i] eCW1 ([facility]) Body weight [lb_av] eCW1 ([facility]) Body mass index (BMI) [Ratio] 30.8 kg/m2 30.8 k g/m2 [facility] ([facility]) Body height 72 [in_i] 72 [in_i] [facility] ([facility], [facility]) 6'0" Body weight 227.00 [lb_av] 227.00 [lb_av] MEDEN T ([facility], [facility]) Body temperature 96.9 [degF] 96.9 [degF] [facility] ([facility], [facility]) Oxygen saturation in Arterial blood by Pulse oximetry 95 % 95 % [facility] ([facility], [facility]) Respiratory rate 14 /min 14 /min [facility] ( [facility], [facility]) Heart rate 68 /min 68 /min [facility]) Diastolic blood pressure 100 mm[Hg] 100 mm[Hg] [facility] ([facility], [facility]) Systolic blood pressure 140 mm[Hg] 140 mm[Hg] M EDENT ([facility], [facility]) Diastolic blood pressure 94 mm[Hg] 94 mm[Hg] [facility] ([facility], [facility]) manual Systolic blood pressure 140 mm[Hg] 140 mm[Hg] M [facility] ([facility], [facility]) manual Body mass index (BMI) [Ratio] 29.8 kg/m2 29.8 k g/m2 [facility] ([facility], [facility]) Body height 72 [in_i] 72 [in_i] [facility] ([facility], [facility]) 6'0" Body weight 220.00 [lb_av] 220.00 [lb_av] MEDEN T ([facility], [facility]) Body temperature 98.0 [degF] 98.0 [degF] [facility] ([facility], [facility]) Oxygen saturation in Arterial blood by Pulse oximetry 97 % 97 % [facility] ([facility], [facility]) Respiratory rate 16 /min 16 /min [facility] ( [facility], [facility]) Heart rate 84 /min 84 /min [facility] ([facility], [facility]) Diastolic blood pressure 91 mm[Hg] 91 mm[Hg] [facility] ([facility], [facility]) Systolic blood pressure 143 mm[Hg] 143 mm[Hg] M [facility] ([facility], [facility]) Diastolic blood pressure 108 mm[Hg] 108 mm[Hg] [facility] ([facility]) manual Systolic blood pressure 156 mm[Hg] 156 mm[Hg] M [facility] ([facility]) manual Body mass index (BMI) [Ratio] 29.8 kg/m2 29.8 k g/m2 [facility] ([facility]) Body height 72 [in_i] 72 [in_i] [facility] ([facility]) 6'0" Body weight 220.00 [lb_av] 220.00 [lb_av] MEDEN T ([facility], [facility]) Body temperature 98.2 [degF] 98.2 [degF] [facility] ([facility]) Oxygen saturation in Arterial blood by Pulse oximetry 97 % 97 % [facility] ([facility]) Respiratory rate 16 /min 16 /min [facility] ( [facility]) Heart rate 83 /min 83 /min [facility] ([facility], [facility]) Diastolic blood pressure 106 mm[Hg] 106 mm[Hg] [facility] ([facility]) Systolic blood pressure 160 mm[Hg] 160 mm[Hg] [facility] ([facility]) Patient Treatment Plan of Care Planned Activity Planned Date Details Description Data Source (s) atorvastatin 80 MG Oral Tablet 08/18/2020 12:00:00 AM EST eCW1 ([facility]) Lisinopril 20 MG Oral Tablet 08/18/2020 12:00:00 AM EST eCW1 ([facility]) atorvastatin 80 MG Oral Tablet 08/18/2020 12:00:00 AM EST eCW1 ([facility]) Lisinopril 20 MG Oral Tablet 08/18/2020 12:00:00 AM EST eCW1 ([facility]) Lisinopril 10 MG Oral Tablet 07/20/2020 12:00:00 AM EST eCW1 ([facility]) Lisinopril 10 MG Oral Tablet 07/20/2020 12:00:00 AM EST eCW1 ([facility])
[2020-09-09] MEDS ORDERED: propofoL 200 MG/20 ML VIAL As Ordered ONE ×2 (10:30→10:36)
--- NOTE | 2020-09-09 10:50 | ROOR ---
Patient Name: Rik London Procedure Date: 09/09/2020 9:59 AM Date of : 1965 Age: 54 Room: [facility] Gender: Male Note Status: Finalized Procedure: Colonoscopy Indications: Screening for colorectal malignant neoplasm, Screening for colon cancer: Family history of colorectal cancer in distant relative(s) 60 or older Providers: Christo Alejandra MD Referring MD: VICKEY DONAHUE DO Requesting Provider: Medicines: Monitored Anesthesia Care Complications: No immediate complications. Procedure: Pre-Anesthesia Assessment: - Prior to the procedure, a History and Physical was performed, and patient medications and allergies were reviewed. The risks and benefits of the procedure and the sedation options and risks were discussed with the patient. All questions were answered and informed consent was obtained. Patient identification and proposed procedure were verified by the physician, the nurse and the silver designer in the endoscopy suite. Mental Status Examination: alert and oriented. Airway Examination: normal oropharyngeal airway and neck mobility. Respiratory Examination: clear to auscultation. CV Examination: normal. Prophylactic Antibiotics: The patient does not require prophylactic antibiotics. Prior Anticoagulants: The patient has taken no previous anticoagulant or antiplatelet agents except for aspirin. ASA Grade Assessment: II - A patient with mild systemic disease. After reviewing the risks and benefits, the patient was deemed in satisfactory condition to undergo the procedure. The anesthesia plan was to use monitored anesthesia care (MAC). Immediately prior to administration of medications, the patient was re-assessed for adequacy to receive sedatives. The heart rate, respiratory rate, oxygen saturations, blood pressure, adequacy of pulmonary ventilation, and response to care were monitored throughout the procedure. The physical status of the patient was re-assessed after the procedure. The Colonoscope was introduced through the anus and advanced to the cecum, identified by appendiceal orifice and ileocecal valve. The colonoscopy was somewhat difficult due to a tortuous colon. The patient tolerated the procedure well. The quality of the bowel preparation was good. Findings: The perianal and digital rectal examinations were normal. A few small-mouthed diverticula were found in the sigmoid colon. Two sessile polyps were found in the transverse colon and ascending colon. The polyps were 1 to 4 mm in size. These polyps were removed with a hot snare. Resection and retrieval were complete. Estimated blood loss: none. Two semi-pedunculated polyps were found in the sigmoid colon. The polyps were 2 to 6 mm in size. These polyps were removed with a hot snare. Resection and retrieval were complete. Estimated blood loss was minimal. The smaller polyp fragments were removed with cold forceps, piecemeal A 10 mm polyp was found in the recto-sigmoid colon. The polyp was pedunculated. The polyp was removed with a hot snare. Resection and retrieval were complete. Estimated blood loss: none. Non-bleeding internal hemorrhoids were found during retroflexion. The hemorrhoids were medium-sized. Impression: - Diverticulosis in the sigmoid colon. - Two 1 to 4 mm polyps in the transverse colon and in the ascending colon, removed with a hot snare. Resected and retrieved. - Two 2 to 6 mm polyps in the sigmoid colon, removed with a hot snare. Resected and retrieved. - One 10 mm polyp at the recto-sigmoid colon, removed with a hot snare. Resected and retrieved. - Non-bleeding internal hemorrhoids. Recommendation: - Repeat colonoscopy in 3 years for surveillance. Procedure Code(s): --- Professional --- 74403, Colonoscopy, flexible; with removal of tumor(s), polyp(s), or other lesion(s) by snare technique Diagnosis Code(s): --- Professional --- K63.5, Polyp of colon Z12.11, Encounter for screening for malignant neoplasm of colon Z80.0, Family history of malignant neoplasm of digestive organs K64.8, Other hemorrhoids K57.30, Diverticulosis of large intestine without perforation or abscess without bleeding CPT copyright 2019 [employer]. All rights reserved. The codes documented in this report are preliminary and upon golf club repairer review may be revised to meet current compliance requirements. Christo Alejandra MD Christo Alejandra MD 09/09/2020 10:49:56 AM Electronically signed by Christo Alejandra MD Number of Addenda: 0 Note Initiated On: 09/09/2020 9:59 AM Estimated Blood Loss: Estimated blood loss was minimal.
[2020-09-09 11:22] VITALS: BP 137/77
== END 2020-09-09 11:24 | disposition home or self-care (01) ==
LOC: M OPP 08:09
PROVIDERS: ATTEND Surgery
DX: Z12.11 Encounter for screening for malignant neoplasm of colon (principal); Z80.0 Family history of malignant neoplasm of digestive organs; K63.5 Polyp of colon; K57.30 Diverticulosis of large intestine without perforation or abscess without bleeding; K64.8 Other hemorrhoids; I10 Essential (primary) hypertension; E78.5 Hyperlipidemia, unspecified; F17.210 Nicotine dependence, cigarettes, uncomplicated; Z79.82 Long term (current) use of aspirin; Z79.899 Other long term (current) drug therapy

== ENCOUNTER 2020-09-09 17:49 | Emergency (ER) | payer BC ==
[~2020-09-09] VITALS: Ht 182.9 cm; Wt 97.8 kg
[~2020-09-09 17:49] MED LIST changes: -LIDOCAINE 2% 100MG/5ML SDV (FOR ANES.) As Ordered ONE; -NS 1,000 ML IV ONE; -propofoL 200 MG/20 ML VIAL As Ordered ONE
--- OUTSIDE RECORDS SUMMARY | 2020-09-09 17:59 | CCD ---
Author Author [facility] Organization [facility] Address Unknown Phone Unavailable Care Team Providers Care Tractor Driver Name Role Phone Lester, W Matthew RPA-C [...] Unavailable Lester, W Matthew RPA-C Unavailable Unavailable Elster, W Matthew RPA-C Unavailable Unavailable Lester, W [...] RAMIREZ PAUL PA Unavailable Unavailable DEBORAH, RAMIREZ PUAL PA Unavailable Unavailable DEBORAH, RAMIREZ PAUL PA [...] is protected by Article 27-F of the [facility] [place] Public Health law. If you continue you may have access to information: Regarding HIV / AIDS; Provided by facilities licensed or operated by the [facility] Office of Mental Health; or Provided by the [facility] Office for People With Developmental Disabilities. If such information is present, then the following [facility] mandated warning applies: This information has been [...] law may result in a fine or fdc sentence or both. A general authorization for the release of medical or other information is NOT sufficient authorization for further disc losure. Encounters Encounter Providers Location Date Indications Data Source(s ) Unknown [address] [facility] [address] 08/19/2020 12:00:00 AM EST eCW1 ([facility]ly [facility]) Outpatient [address] [facility] [place] [address] 08/18/2020 12:00:00 AM EST eCW1 ([facility]) Unknown [address] [facility] [place] [address] 07/22/2020 12:00:00 AM EST eCW1 ([facility]) Outpatient [address] [facility] [place] [address] 07/20/2020 12:00:00 AM EST eCW1 ([facility]) Outpatient Attender: IAN Ruth Prim jeromy 07/03/2020 01:35:00 PM EST [facility] ([facility]) Outpatient Attender: IAN Ruth Prim jeromy 05/26/2020 01:40:00 PM EST [facility] ([facility]) Outpatient Attender: IAN Ruth Prim jeromy 05/18/2020 07:30:00 AM EST [facility] ([facility]) Emergency Attender: Matthew Lester RPA-C 07:20:00 PM EST - 07/12/2019 07:50:00 PM [facility] Patient discharged. Emergency Attender: PAUL MARTINEZ 01:17:00 PM EDT - 12/09/2018 02:18:00 PM [facility] Patient discharged. Immunizations Vaccine Date Status Description Data Source(s) influenza, recombinant, quadrIvalent,injectable, prese rvative free 07/20/2020 11:21:00 AM EST completed eCW1 ([facility]) influenza, recombinant, quadrIvalent,injectable, prese rvative free 07/20/2020 11:21:00 AM EST completed eCW1 ([facility]) influenza, recombinant, quadrIvalent,injectable, prese rvative free 07/20/2020 11:21:00 AM EST completed eCW1 ([facility]) influenza, recombinant, quadrIvalent,injectable, prese rvative free 07/20/2020 11:21:00 AM EST completed eCW1 ([facility]) Medications Medication Brand Name Start Date Product [...] {tablet} active Lisinopril 20 MG eCW1 ( Replaced By [facility]) Lisinopril 20 MG Oral Tablet Lisinopril 20 MG 08/18/2020 12:00:00 A M EST 1.0 {tablet} active Lisinopril 20 MG eCW1 ( Replaced By [facility]) atorvastatin 80 MG Oral Tablet Atorvastatin Calcium 80 MG Atorvastatin Calcium 80 MG 08/18/2020 12:00:00 AM EST 1.0 {tablet} activ e Atorvastatin Calcium 80 MG eCW1 (Replaced By [facility]) atorvastatin 80 MG Oral Tablet Atorvastatin Calcium 80 MG Atorvastatin Calcium 80 MG 08/18/2020 12:00:00 AM EST 1.0 {tablet} activ e Atorvastatin Calcium 80 MG eCW1 (Replaced By [facility]) Lisinopril 10 MG Oral Tablet Lisinopril 10 MG 07/20/2020 12:00:00 A M EST 1.0 {tablet} active Lisinopril 10 MG eCW1 ( Replaced By [facility]) Lisinopril 10 MG Oral Tablet Lisinopril 10 MG 07/20/2020 12:00:00 A M EST 1.0 {tablet} active Lisinopril 10 MG eCW1 ( Replaced By [facility]) 100 mg 07/03/2020 12:00:00 AM EST tablet 20 TAKE ONE TABLET BY MOUTH TWICE A DAY FOR 10 DAYS TAKE ONE TABLET BY MOUTH TWICE A DAY FOR 10 DAYS SOLD: 07/03/2020 [facility] Doxycycline Monohydrate 100 MG Oral Tablet Doxycycline Monoh ydrate 07/03/2020 12:00:00 AM EST ORAL active M EDENT ([facility]) Atenolol 25 MG Oral Tablet ATENOLOL 05/18/2020 12:00:00 AM EST tablet 30 TAKE ONE TABLET BY MOUTH EVERY MORNING TAKE ONE TABLET BY MOUTH EVERY MORNING SOLD: 05/18/2020 [facility] No Active Medications 05/18/2020 12:00:00 AM EST completed [facility] ([facility]) Atenolol 25 MG Oral Tablet ATENOLOL 05/18/2020 [...] 05/18/2020 12:00:00 AM EST ORAL active [facility] ([facility], [facility]) Insurance Providers Payer name Policy type / Coverage type Policy ID Covered constitution party ID Covered constitution party's relationship to moreno Policy Moreno Plan Information [employer] [id number] SP [id number] [employer] [id number] SP [id number] [facility] FEDERAL EMPLOYEE PROGRAM [id number] SP [id number] [employer] [facility] [id number] S [id number] [employer] OF [facility] [id number] S [id number] [facility] SELF [facility]URED [id number] Problems, Conditions, and Diagnoses Code Display Name Description Problem Type Effective Dates Data Source(s) E78.5 [id number] Dyslipidemia Problem 08/18/2020 12:00:00 AM EST eCW1 (Replaced By [facility]) [id number] Essential hypertension Essential hypertension Problem 08/04/2020 12:00:00 AM EST [facility] ([facility], ) I11.9 [id number] Hypertensive heart disease without heart failure Problem 07/20/2020 12:00:00 AM EST W1 (Replaced By [facility]) D72.829 [id number] Leukocytosis, unspecified Problem 07/20/2020 12:00:00 AM EST eCW1 (Replaced By [facility]) R22.31 Localized swelling, mass and lump, right upper limb LOCALIZED SWELLING, MASS AND LUMP, RIGHT UPPER MURO Diagnosis 07/12/2019 07:20:00 PM [facility] L50.9 Urticaria, unspecified URTICARIA, UNSPECIFIED Diagnosi s 07/12/2019 07:20:00 PM [facility] L98.9 Disorder of the skin and subcutaneous ti ssue, unspecified DISORDER OF THE SKIN AND SUBCUTANEOUS TISSUE, UNSPECIFIED Diagnosis 07/12/2019 07:20:0 0 PM [facility] Surgeries/Procedures Procedure Description Date Indications Data Source(s) ECG ROUTINE ECG W/LEAST 12 LDS W/I&R 05/18/2020 12:00: 00 AM EST [facility]) Results ID Date Data Source [id number] 09/04/2020 10:12:00 AM EST [facility] Name Value Range Interpretation Code Description Data Noelle rce(s) Supporting Document(s) SARS coronavirus 2 RNA Not Detected [facility] [place] This lab was ordered by [facility] and reported by [facility]. ID Date Data Source [id number] 05/18/2020 09:04:00 AM EST [facility] ([facility]) Name Value Range Interpretation Code Description Data Noelle rce(s) Supporting Document(s) Thyroid Stimulating Hormone 1.350 uIU/ML 0.358-3.740 [facility] ([facility]) Patient contacted Free T4 1.28 ng/dL 0.76-1.46 [facility] ([facility]) Patient contacted ID Date Data Source [id number] 05/18/2020 09:04:00 AM EST [facility] ([facility]) Name Value Range Interpretation Code Description Data Noelle rce(s) Supporting Document(s) Hemoglobin A1c 5.9 % [facility] ([facility]) Patient contacted Estimated Average Glucose 123 mg/dL 60-110 [facility] ([facility]) Patient contacted ID Date Data Source [id number] 05/18/2020 09:04:00 AM EST [facility] ([facility]) Name Value Range Interpretation Code Description Data Noelle rce(s) Supporting Document(s) Blood Urea Nitrogen 12 mg/dL 7-18 [facility] ([facility]) Patient contacted Glucose, Fasting 93 mg/dL 70-100 [facility] ([facility]) Patient contacted Creatinine For GFR 0.80 mg/dL 0.70-1.30 [facility] ([facility]) Patient contacted Potassium Serum 4.3 meq/L 3.5-5.1 [facility] ([facility]) Patient contacted Glomerular Filtration Rate Laboratory test result [facility] ([facility]) Patient contacted Sodium Level 140 meq/L 136-145 [facility] ([facility]) Patient contacted Chloride Level 105 meq/L 98-107 [facility] ([facility]) Patient contacted Carbon Dioxide Level 30 meq/L 21-32 [facility] ([facility]) Patient contacted Anion Gap 5 meq/L 8-16 [facility] ([facility]) Patient contacted Calcium Level 9.2 mg/dL 8.5-10.1 [facility] ([facility]) Patient contacted Alkaline Phosphatase 89 U/L 45-117 [facility] ([facility]) Patient contacted Alt/SGPT 27 U/L 12-78 [facility] ([facility]) Patient contacted Ast/Sgot 14 U/L 7-37 [facility] ([facility]) Patient contacted Bilirubin,Total 0.4 mg/dL 0.2-1.0 [facility] ([facility]) Patient contacted Total Protein 7.2 GM/DL 6.4-8.2 [facility] ([facility]) Patient contacted Albumin/Globulin Ratio 1.3 [facility] ([facility]) Patient contacted Albumin 4.0 GM/DL 3.2-5.2 [facility] ([facility]) Patient contacted ID Date Data Source [id number] 05/18/2020 09:04:00 AM EST [facility] ([facility]) Name Value Range Interpretation Code Description Data Noelle rce(s) Supporting Document(s) White Blood Count 10.7 10 4.0-10.0 [facility] ([facility]) Patient contacted Hemoglobin 15.9 g/dL 13.5-17.5 [facility] ([facility]) Patient contacted Hematocrit 49.2 % 42.0-52.0 [facility] ([facility]) Patient contacted Red Blood Count 5.52 10 4.30-6.10 [facility] ([facility]) Patient contacted Mean Corpuscular Hemoglobin 28.8 pg 27.0-33.0 [facility] ([facility]) Patient contacted Mean Corpuscular Volume 89.1 fl 80.0-96.0 M EDENT ([facility]) Patient contacted Mean Corpuscular HGB Conc 32.3 g/dL 32.0-36.5 [facility] ([facility]) Patient contacted Neutrophils % 72.0 % 36.0-66.0 [facility] ([facility]) Patient contacted Platelet Count, Automated 210 10 150-450 [facility] ([facility]) Patient contacted Red Cell Distribution Width 13.8 % 11.5-14.5 [facility] ([facility]) Patient contacted Lymph % 20.7 % 24.0-44.0 [facility] ([facility]) Patient contacted Eos % 0.6 % 0.0-3.0 [facility] ([facility]) Patient contacted [place] % 5.6 % 0.0-5.0 [facility] ([facility]) Patient contacted Immature Granulocyte % 0.4 % 0-3.0 [facility] ([facility]) Patient contacted Nucleated Red Blood Cell % 0.0 % 0-0 [facility] ([facility]) Patient contacted Baso % 0.7 % 0.0-1.0 [facility] ([facility], [facility]) Patient contacted Neutrophils # 7.7 10 1.5-8.5 [facility] ([facility]) Patient contacted Lymph # 2.2 10 1.5-5.0 [facility] ([facility], [facility]) Patient contacted Eos # 0.1 10 0.0-0.5 [facility] ([facility], [facility]) Patient contacted Baso # 0.1 10 0.0-0.2 [facility] ([facility], [facility]) Patient contacted [place] # 0.6 10 0.0-0.8 [facility] ([facility]) Patient contacted ID Date Data Source [id number] 07/12/2019 11:48:00 PM EST [facility] Patient: PAULINE LEON Observation Rep ort - [facility].VisitID: [id number] [place] [address] [phone], MRegistration Date/Time: 07/12/2019 18:37 Weight:113.3 kg. Height/Length:72 [...] Current Smoker completed Curre nt Smoker eCW1 (Replaced By [facility]) Smoking 08/18/2020 12:00:00 AM EST Current Smoker completed Curre nt Smoker eCW1 (Replaced By [facility]) Smoking 07/20/2020 12:00:00 AM EST Current Smoker completed Curre nt Smoker eCW1 (Replaced By [facility]) Smoking 07/20/2020 12:00:00 AM EST Current Smoker completed Curre nt Smoker eCW1 (Replaced By [facility]) Vital Signs ID Date Data Source UNK Name Value Range Interpretation Code Description Data Source(s) Diastolic blood pressure 96 mm[Hg] 96 mm[Hg] eCW1 (Replaced By [facility]) Systolic blood pressure 157 mm[Hg] 157 mm[Hg] e CW1 (Replaced By [facility]) Body temperature 98.0 [degF] 98.0 [degF] eCW1 ( Replaced By [facility]) Respiratory rate 18 /min 18 /min eCW1 ([facility]) Heart rate 72 /min 72 /min eCW1 ([facility]) Body mass index (BMI) [Ratio] 30.78 kg/m2 30.78 kg/m2 eCW1 (Replaced By [facility]) Body height [in_i] eCW1 ([facility]) Body weight 227 [lb_av] 227 [lb_av] eCW1 ([facility]) Body surface area Derived from formula 2.26 m2 2.26 m2 [facility] ([facility]) Body weight 104.441 kg 104.441 kg MED[facility] ([facility]) [place] body weight 178 [lb_av] 178 [lb_av] MEDEN T ([facility]) Body mass index (BMI) [Ratio] 31.2 kg/m2 31.2 k g/m2 [facility] ([facility]) Body weight 230.25 [lb_av] 230.25 [lb_av] MEDEN T ([facility]) Body height 72 [in_i] 72 [in_i] [facility]) 6'0" Heart rate 63 /min 63 /min [facility] ([facility]) Diastolic blood pressure 119 mm[Hg] 119 mm[Hg] [facility] ([facility]) Systolic blood pressure 175 mm[Hg] 175 mm[Hg] M EDENT ([facility]) Diastolic blood pressure 90 mm[Hg] 90 mm[Hg] eCW1 (Replaced By [facility]) Systolic blood pressure 151 mm[Hg] 151 mm[Hg] e CW1 (Replaced By [facility]) Body temperature 98.4 [degF] 98.4 [degF] eCW1 ( Replaced By [facility]) Respiratory rate 18 /min 18 /min eCW1 ([facility]) Heart rate 66 /min 66 /min eCW1 ([facility]) Body mass index (BMI) [Ratio] 30.78 kg/m2 30.78 kg/m2 eCW1 (Replaced By [facility]) Body height [in_i] eCW1 ([facility]) Body weight [lb_av] eCW1 ([facility]) Body mass index (BMI) [Ratio] 30.8 kg/m2 30.8 k g/m2 [facility] ([facility]) Body height 72 [in_i] 72 [in_i] [facility] ([facility], [facility]) 6'0" Body weight 227.00 [lb_av] 227.00 [lb_av] MEDEN T ([facility], [facility]) Body temperature 96.9 [degF] 96.9 [degF] [facility] ([facility]) Oxygen saturation in Arterial blood by Pulse oximetry 95 % 95 % [facility] ([facility]) Respiratory rate 14 /min 14 /min [facility] ( [facility]) Heart rate 68 /min 68 /min [facility] ([facility], [facility]) Diastolic blood pressure 100 mm[Hg] 100 mm[Hg] [facility] ([facility], [facility]) Systolic blood pressure 140 mm[Hg] 140 mm[Hg] M EDENT ([facility], [facility]) Diastolic blood pressure 94 mm[Hg] 94 mm[Hg] [facility] ([facility]) manual Systolic blood pressure 140 mm[Hg] 140 mm[Hg] M EDENT ([facility]) manual Body mass index (BMI) [Ratio] 29.8 kg/m2 29.8 k g/m2 [facility] ([facility]) Body height 72 [in_i] 72 [in_i] [facility] ([facility], [facility]) 6'0" Body weight 220.00 [lb_av] 220.00 [lb_av] MEDEN T ([facility], [facility]) Body temperature 98.0 [degF] 98.0 [degF] [facility] ([facility], [facility]) Oxygen saturation in Arterial blood by Pulse oximetry 97 % 97 % [facility] ([facility]) Respiratory rate 16 /min 16 /min [facility] ( [facility], [facility]) Heart rate 84 /min 84 /min [facility] ([facility], [facility]) Diastolic blood pressure 91 mm[Hg] 91 mm[Hg] [facility] ([facility], [facility]) Systolic blood pressure 143 mm[Hg] 143 mm[Hg] M [facility] ([facility], [facility]) Diastolic blood pressure 108 mm[Hg] 108 mm[Hg] [facility] ([facility]) manual Systolic blood pressure 156 mm[Hg] 156 mm[Hg] M [facility] ([facility]) manual Body mass index (BMI) [Ratio] 29.8 kg/m2 29.8 k g/m2 [facility] ([facility]) Body height 72 [in_i] 72 [in_i] [facility] ([facility]) 6'0" Body weight 220.00 [lb_av] 220.00 [lb_av] MEDEN T ([facility], [facility]) Body temperature 98.2 [degF] 98.2 [degF] [facility] ([facility]) Oxygen saturation in Arterial blood by Pulse oximetry 97 % 97 % [facility] ([facility]) Respiratory rate 16 /min 16 /min [facility] ( [facility]) Heart rate 83 /min 83 /min [facility] ([facility], [facility]) Diastolic blood pressure 106 mm[Hg] 106 mm[Hg] [facility] ([facility]) Systolic blood pressure 160 mm[Hg] 160 mm[Hg] [facility] ([facility]) Patient Treatment Plan of Care Planned Activity Planned Date Details Description Data Source (s) atorvastatin 80 MG Oral Tablet 08/18/2020 12:00:00 AM EST eCW1 (Replaced By [facility]) Lisinopril 20 MG Oral Tablet 08/18/2020 12:00:00 AM EST eCW1 (Replaced By [facility]) atorvastatin 80 MG Oral Tablet 08/18/2020 12:00:00 AM EST eCW1 (Replaced By [facility]) Lisinopril 20 MG Oral Tablet 08/18/2020 12:00:00 AM EST eCW1 (Replaced By [facility]) Lisinopril 10 MG Oral Tablet 07/20/2020 12:00:00 AM EST eCW1 (Replaced By [facility]) Lisinopril 10 MG Oral Tablet 07/20/2020 12:00:00 AM EST eCW1 (Replaced By [facility])
[2020-09-09 19:53] LABS: BASO # 0.1 10^3/uL (0.0-0.2); BASO % 0.4 % (0.0-1.0); EOS % 0.1 % (0.0-3.0); HEMATOCRIT 48.9 % (42.0-52.0); HEMOGLOBIN 15.8 g/dl (13.5-17.5); LYMPH # 1.2 10^3/uL (1.5-5.0); MEAN CORPUSCULAR HEMOGLOBIN 28.8 pg (27.0-33.0); MEAN CORPUSCULAR HGB CONC 32.3 g/dl (32.0-36.5); MEAN CORPUSCULAR VOLUME 89.2 fl (80.0-96.0); MONO # 0.3 10^3/uL (0.0-0.8); MONO % 2.4 % (2.0-8.0); NEUTROPHILS # 11.9 10^3/uL (1.5-8.5); NEUTROPHILS % 87.7 % (36.0-66.0); PLATELET COUNT, AUTOMATED 226 10^3/uL (150-450); RED BLOOD COUNT 5.48 10^6/uL (4.30-6.10); WHITE BLOOD COUNT 13.6 10^3/uL (4.0-10.0)
[2020-09-09] MEDS ORDERED: PROMETHAZINE INJ 25 MG/ML VIAL (J2550) IV ONE (20:10)
[2020-09-09] MEDS ORDERED: NS 1,000 ML IV ONE (20:10)
[2020-09-09 20:11] LABS: ALBUMIN 4.2 GM/DL (3.2-5.2); ALT/SGPT 31 U/L (12-78); BILIRUBIN,DIRECT 0.1 MG/DL (0.0-0.2); BILIRUBIN,TOTAL 0.4 MG/DL (0.2-1.0); BLOOD UREA NITROGEN 22 MG/DL (7-18); CALCIUM LEVEL 8.9 MG/DL (8.5-10.1); CARBON DIOXIDE LEVEL 26 MEQ/L (21-32); CHLORIDE LEVEL 110 MEQ/L (98-107); CREATININE FOR GFR 0.86 MG/DL (0.70-1.30); GLOMERULAR FILTRATION RATE > 60.0 (>56); GLUCOSE, FASTING 113 MG/DL (70-100); LIPASE 102 U/L (73-393); POTASSIUM SERUM 3.7 MEQ/L (3.5-5.1); SODIUM LEVEL 143 MEQ/L (136-145); TOTAL PROTEIN 7.6 GM/DL (6.4-8.2)
--- OUTSIDE RECORDS SUMMARY | 2020-09-09 20:26 | CCD ---
Author Author [facility] Organization [facility] Address Unknown Phone Unavailable Care Team Providers Care Manager Practice Name Role Phone Lester, W Matthew RPA-C [...] is protected by Article 27-F of the [facility] Public Health law. If you continue you may have access to information: Regarding HIV / AIDS; Provided by facilities licensed or operated by the [facility] Office of Mental Health; or Provided by the [facility] Office for People With Developmental Disabilities. If such information is present, then the following [facility] mandated warning applies: This information [...] law may result in a fine or mcc sentence or both. A general authorization for the release of medical or other information is NOT sufficient authorization for further disc losure. Encounters Encounter Providers Location Date Indications Data Source(s ) Unknown [address] [facility] [address] 08/19/2020 12:00:00 AM EST eCW1 ([facility]) Outpatient [address] [facility] [place] [address] 08/18/2020 12:00:00 AM EST eCW1 ([facility]) Unknown [address] [facility] [address] [place] [address] 07/22/2020 12:00:00 AM EST eCW1 ([facility]) Outpatient [address] [facility] [place] [address] 07/20/2020 12:00:00 AM EST eCW1 ([facility]) Outpatient Attender: IAN Ruth Prim jeromy 07/03/2020 01:35:00 PM EST MEDENT ([facility] Outpatient Attender: IAN Ruth Prim jeromy 05/26/2020 01:40:00 PM EST MEDENT ([facility]) Outpatient Attender: IAN Ruth Prim jeromy 05/18/2020 07:30:00 AM EST MEDENT ([facility]) Emergency Attender: Matthew Lester RPA-C 07:20:00 PM EST - 07/12/2019 07:50:00 PM [facility] Patient discharged. Emergency Attender: PAUL MARTINEZ 01:17:00 PM EDT - 12/09/2018 02:18:00 PM [facility] Patient discharged. Immunizations Vaccine Date Status Description Data Source(s) influenza, recombinant, quadrIvalent,injectable, prese rvative free 07/20/2020 11:21:00 AM EST completed [facility] influenza, recombinant, quadrIvalent,injectable, prese rvative free 07/20/2020 11:21:00 AM EST completed eCW1 ([facility]) influenza, recombinant, quadrIvalent,injectable, prese rvative free 07/20/2020 11:21:00 AM EST completed eCW1 ([facility]) influenza, recombinant, quadrIvalent,injectable, prese rvative free 07/20/2020 11:21:00 AM EST completed eCW1 ([facility]) Medications Medication Brand Name Start Date Product [...] {tablet} active Lisinopril 20 MG eCW1 ( [facility]) Lisinopril 20 MG Oral Tablet Lisinopril 20 MG 08/18/2020 12:00:00 A M EST 1.0 {tablet} active Lisinopril 20 MG eCW1 ( [facility]) atorvastatin 80 MG Oral Tablet Atorvastatin Calcium 80 MG Atorvastatin Calcium 80 MG 08/18/2020 12:00:00 AM EST 1.0 {tablet} activ e Atorvastatin Calcium 80 MG eCW1 ([facility]) atorvastatin 80 MG Oral Tablet Atorvastatin Calcium 80 MG Atorvastatin Calcium 80 MG 08/18/2020 12:00:00 AM EST 1.0 {tablet} activ e Atorvastatin Calcium 80 MG eCW1 ([facility]) Lisinopril 10 MG Oral Tablet Lisinopril 10 MG 07/20/2020 12:00:00 A M EST 1.0 {tablet} active Lisinopril 10 MG eCW1 ( [facility]) Lisinopril 10 MG Oral Tablet Lisinopril 10 MG 07/20/2020 12:00:00 A M EST 1.0 {tablet} active Lisinopril 10 MG eCW1 ( [facility]) 100 mg 07/03/2020 12:00:00 AM EST tablet 20 TAKE ONE TABLET BY MOUTH TWICE A DAY FOR 10 DAYS TAKE ONE TABLET BY MOUTH TWICE A DAY FOR 10 DAYS SOLD: 07/03/2020 [facility] Doxycycline Monohydrate 100 MG Oral Tablet Doxycycline Monoh ydrate 07/03/2020 12:00:00 AM EST ORAL active M EDENT ([facility]) Atenolol 25 MG Oral Tablet ATENOLOL 05/18/2020 12:00:00 AM EST tablet 30 TAKE ONE TABLET BY MOUTH EVERY MORNING TAKE ONE TABLET BY MOUTH EVERY MORNING SOLD: 05/18/2020 [facility] No Active Medications 05/18/2020 12:00:00 AM EST completed MEDENT ([facility]) Atenolol 25 MG Oral Tablet ATENOLOL 05/18/2020 [...] 05/18/2020 12:00:00 AM EST ORAL active MEDENT ([facility]) Insurance Providers Payer name Policy type / Coverage type Policy ID Covered constitution party ID Covered constitution party's relationship to moreno Policy Moreno Plan Information [employer] PRO[employer] [id number] SP [id number] [employer] [id number] SP [id number] [facility] FEDERAL EMPLOYEE PROGRAM [id number] SP [id number] [employer] [id number] S [id number] [employer] [id number] S [id number] [facility] SELF INSURED [id number] Problems, Conditions, and Diagnoses Code Display Name Description Problem Type Effective Dates Data Source(s) E78.5 093070944 Dyslipidemia Problem 08/18/2020 12:00:00 AM EST eCW1 ([facility]) 83974694 Essential hypertension Essential hypertension Problem 08/04/2020 12:00:00 AM EST MEDENT ([facility], ) I11.9 [id number] Hypertensive heart disease without heart failure Problem 07/20/2020 12:00:00 AM EST W1 ([facility]) D72.829 [id number] Leukocytosis, unspecified Problem 07/20/2020 12:00:00 AM EST eCW1 ([facility]) R22.31 Localized swelling, mass and lump, right upper limb LOCALIZED SWELLING, MASS AND LUMP, RIGHT UPPER MURO Diagnosis 07/12/2019 07:20:00 PM [facility] L50.9 Urticaria, unspecified URTICARIA, UNSPECIFIED Diagnosi s 07/12/2019 07:20:00 PM [facility] L98.9 Disorder of the skin and subcutaneous ti ssue, unspecified DISORDER OF THE SKIN AND SUBCUTANEOUS TISSUE, UNSPECIFIED Diagnosis 07/12/2019 07:20:0 0 PM [facility] Surgeries/Procedures Procedure Description Date Indications Data Source(s) ECG ROUTINE ECG W/LEAST 12 LDS W/I&R 05/18/2020 12:00: 00 AM EST [facility] ([facility]) Results ID Date Data Source [id number] 09/04/2020 10:12:00 AM EST [facility] Name Value Range Interpretation Code Description Data Noelle rce(s) Supporting Document(s) SARS coronavirus 2 RNA Not Detected [facility] [place] This lab was ordered by [facility] and reported by [facility]. ID Date Data Source [id number] 05/18/2020 09:04:00 AM EST MEDENT ([facility]) Name Value Range Interpretation Code Description Data Noelle rce(s) Supporting Document(s) Thyroid Stimulating Hormone 1.350 uIU/ML 0.358-3.740 [facility] ([facility]) Patient contacted Free T4 1.28 ng/dL 0.76-1.46 [facility] ([facility]) Patient contacted ID Date Data Source [id number] 05/18/2020 09:04:00 AM EST MEDENT ([facility]) Name Value Range Interpretation Code Description Data Noelle rce(s) Supporting Document(s) Hemoglobin A1c 5.9 % [facility] ([facility]) Patient contacted Estimated Average Glucose 123 mg/dL 60-110 [facility] ([facility]) Patient contacted ID Date Data Source [id number] 05/18/2020 09:04:00 AM EST MEDENT ([facility]) Name Value Range Interpretation Code Description Data Noelle rce(s) Supporting Document(s) Blood Urea Nitrogen 12 mg/dL 7-18 [facility] ([facility]) Patient contacted Glucose, Fasting 93 mg/dL 70-100 [facility] ([facility]) Patient contacted Creatinine For GFR 0.80 mg/dL 0.70-1.30 [facility] ([facility]) Patient contacted Potassium Serum 4.3 meq/L 3.5-5.1 [facility] ([facility]) Patient contacted Glomerular Filtration Rate Laboratory test result [facility] ([facility]) Patient contacted Sodium Level 140 meq/L 136-145 [facility] ([facility]) Patient contacted Chloride Level 105 meq/L 98-107 [facility] ([facility]) Patient contacted Carbon Dioxide Level 30 meq/L 21-32 [facility] ([facility]) Patient contacted Anion Gap 5 meq/L 8-16 [facility] ([facility]) Patient contacted Calcium Level 9.2 mg/dL 8.5-10.1 [facility] ([facility]) Patient contacted Alkaline Phosphatase 89 U/L 45-117 [facility] ([facility]) Patient contacted Alt/SGPT 27 U/L 12-78 [facility] ([facility]) Patient contacted Ast/Sgot 14 U/L 7-37 [facility] ([facility]) Patient contacted Bilirubin,Total 0.4 mg/dL 0.2-1.0 [facility] ([facility]) Patient contacted Total Protein 7.2 GM/DL 6.4-8.2 [facility] ([facility]) Patient contacted Albumin/Globulin Ratio 1.3 [facility] ([facility]) Patient contacted Albumin 4.0 GM/DL 3.2-5.2 [facility] ([facility]) Patient contacted ID Date Data Source [id number] 05/18/2020 09:04:00 AM EST MEDENT ([facility]) Name Value Range Interpretation Code Description Data Noelle rce(s) Supporting Document(s) White Blood Count 10.7 10 4.0-10.0 MED[facility] ([facility]) Patient contacted Hemoglobin 15.9 g/dL 13.5-17.5 [facility] ([facility]) Patient contacted Hematocrit 49.2 % 42.0-52.0 [facility] ([facility]) Patient contacted Red Blood Count 5.52 10 4.30-6.10 [facility] ([facility]) Patient contacted Mean Corpuscular Hemoglobin 28.8 pg 27.0-33.0 MEDENT ([facility]) Patient contacted Mean Corpuscular Volume 89.1 fl 80.0-96.0 M EDENT ([facility]) Patient contacted Mean Corpuscular HGB Conc 32.3 g/dL 32.0-36.5 MED[facility] ([facility]) Patient contacted Neutrophils % 72.0 % 36.0-66.0 [facility] ([facility]) Patient contacted Platelet Count, Automated 210 10 150-450 MED[facility] ([facility]) Patient contacted Red Cell Distribution Width 13.8 % 11.5-14.5 [facility] ([facility]) Patient contacted Lymph % 20.7 % 24.0-44.0 [facility] ([facility]) Patient contacted Eos % 0.6 % 0.0-3.0 MED[facility] ([facility] Patient contacted [place] % 5.6 % 0.0-5.0 MED[facility] ([facility] Patient contacted Immature Granulocyte % 0.4 % 0-3.0 MED[facility] ([facility]) Patient contacted Nucleated Red Blood Cell % 0.0 % 0-0 MED ENT ([facility]) Patient contacted Baso % 0.7 % 0.0-1.0 MED[facility] ([facility]) Patient contacted Neutrophils # 7.7 10 1.5-8.5 MED[facility] ([facility]) Patient contacted Lymph # 2.2 10 1.5-5.0 [facility] ([facility] [place] [facility]) Patient contacted Eos # 0.1 10 0.0-0.5 [facility] ([facility] [place] [facility]) Patient contacted Baso # 0.1 10 0.0-0.2 MED[facility] ([facility] [place] [facility]) Patient contacted [place] # 0.6 10 0.0-0.8 MEDENT ([facility]) Patient contacted ID Date Data Source [id number] 07/12/2019 11:48:00 PM EST [facility] Patient: PAULINE LEON Observation Rep ort - Physicians/Mid Levels [facility].VisitID: [id number] [place] [address] [phone], MRegistration Date/Time: 07/12/2019 18:37 Weight:113.3 kg. Height/Length:72 [...] Current Smoker completed Curre nt Smoker eCW1 ([facility]) Smoking 08/18/2020 12:00:00 AM EST Current Smoker completed Curre nt Smoker eCW1 ([facility]) Smoking 07/20/2020 12:00:00 AM EST Current Smoker completed Curre nt Smoker eCW1 ([facility]) Smoking 07/20/2020 12:00:00 AM EST Current Smoker completed Curre nt Smoker eCW1 ([facility]) Vital Signs ID Date Data Source UNK Name Value Range Interpretation Code Description Data Source(s) Diastolic blood pressure 96 mm[Hg] 96 mm[Hg] eCW1 ([facility]) Systolic blood pressure 157 mm[Hg] 157 mm[Hg] e CW1 ([facility]) Body temperature 98.0 [degF] 98.0 [degF] eCW1 ( [facility]) Respiratory rate 18 /min 18 /min eCW1 ([facility]) Heart rate 72 /min 72 /min eCW1 ([facility]) Body mass index (BMI) [Ratio] 30.78 kg/m2 30.78 kg/m2 eCW1 ([facility]) Body height [in_i] eCW1 ([facility]) Body weight 227 [lb_av] 227 [lb_av] eCW1 ([facility]) Body surface area Derived from formula 2.26 m2 2.26 m2 MEDENT ([facility]) Body weight 104.441 kg 104.441 kg MEDENT ([facility]) [place] body weight 178 [lb_av] 178 [lb_av] MEDEN T ([facility]) Body mass index (BMI) [Ratio] 31.2 kg/m2 31.2 k g/m2 [facility] ([facility]) Body weight 230.25 [lb_av] 230.25 [lb_av] MEDEN T ([facility]) Body height 72 [in_i] 72 [in_i] [facility] ([facility]) 6'0" Heart rate 63 /min 63 /min [facility] ([facility]) Diastolic blood pressure 119 mm[Hg] 119 mm[Hg] MEDENT ([facility]) Systolic blood pressure 175 mm[Hg] 175 mm[Hg] M EDENT ([facility]) Diastolic blood pressure 90 mm[Hg] 90 mm[Hg] eCW1 ([facility]) Systolic blood pressure 151 mm[Hg] 151 mm[Hg] e CW1 ([facility]) Body temperature 98.4 [degF] 98.4 [degF] eCW1 ( [facility]) Respiratory rate 18 /min 18 /min eCW1 ([facility]) Heart rate 66 /min 66 /min eCW1 ([facility]) Body mass index (BMI) [Ratio] 30.78 kg/m2 30.78 kg/m2 eCW1 ([facility]) Body height [in_i] eCW1 ([facility]) Body weight [lb_av] eCW1 ([facility]) Body mass index (BMI) [Ratio] 30.8 kg/m2 30.8 k g/m2 MEDENT ([facility]) Body height 72 [in_i] 72 [in_i] MEDENT ([facility]) 6'0" Body weight 227.00 [lb_av] 227.00 [lb_av] MEDEN T ([facility]) Body temperature 96.9 [degF] 96.9 [degF] MEDENT ([facility]) Oxygen saturation in Arterial blood by Pulse oximetry 95 % 95 % [facility] ([facility]) Respiratory rate 14 /min 14 /min MEDENT ( [facility]) Heart rate 68 /min 68 /min MEDENT ([facility], [facility]) Diastolic blood pressure 100 mm[Hg] 100 mm[Hg] MEDENT ([facility]) Systolic blood pressure 140 mm[Hg] 140 mm[Hg] M EDENT ([facility]) Diastolic blood pressure 94 mm[Hg] 94 mm[Hg] MEDENT ([facility]) manual Systolic blood pressure 140 mm[Hg] 140 mm[Hg] M EDENT ([facility], [facility]) manual Body mass index (BMI) [Ratio] 29.8 kg/m2 29.8 k g/m2 [facility] ([facility], [facility]) Body height 72 [in_i] 72 [in_i] [facility] ([facility]) 6'0" Body weight 220.00 [lb_av] 220.00 [lb_av] MEDEN T ([facility], [facility]) Body temperature 98.0 [degF] 98.0 [degF] MEDENT ([facility]) Oxygen saturation in Arterial blood by Pulse oximetry 97 % 97 % [facility] ([facility]) Respiratory rate 16 /min 16 /min MED[facility] ( [facility]) Heart rate 84 /min 84 /min MEDENT ([facility]) Diastolic blood pressure 91 mm[Hg] 91 mm[Hg] MEDENT ([facility]) Systolic blood pressure 143 mm[Hg] 143 mm[Hg] [facility] ([facility]) Diastolic blood pressure 108 mm[Hg] 108 mm[Hg] [facility] ([facility]) manual Systolic blood pressure 156 mm[Hg] 156 mm[Hg] [facility] ([facility]) manual Body mass index (BMI) [Ratio] 29.8 kg/m2 29.8 k g/m2 [facility] ([facility]) Body height 72 [in_i] 72 [in_i] [facility] ([facility]) 6'0" Body weight 220.00 [lb_av] 220.00 [lb_av] MEDEN T ([facility]) Body temperature 98.2 [degF] 98.2 [degF] [facility] ([facility]) Oxygen saturation in Arterial blood by Pulse oximetry 97 % 97 % [facility] ([facility]) Respiratory rate 16 /min 16 /min [facility] ( [facility]) Heart rate 83 /min 83 /min [facility] ([facility]) Diastolic blood pressure 106 mm[Hg] 106 mm[Hg] [facility] ([facility]) Systolic blood pressure 160 mm[Hg] 160 mm[Hg] [facility] ([facility]) Patient Treatment Plan of Care Planned Activity Planned Date Details Description Data Source (s) atorvastatin 80 MG Oral Tablet 08/18/2020 12:00:00 AM EST eCW1 ([facility]) Lisinopril 20 MG Oral Tablet 08/18/2020 12:00:00 AM EST eCW1 ([facility]) atorvastatin 80 MG Oral Tablet 08/18/2020 12:00:00 AM EST eCW1 ([facility]) Lisinopril 20 MG Oral Tablet 08/18/2020 12:00:00 AM EST eCW1 ([facility]) Lisinopril 10 MG Oral Tablet 07/20/2020 12:00:00 AM EST eCW1 ([facility]) Lisinopril 10 MG Oral Tablet 07/20/2020 12:00:00 AM EST eCW1 ([facility])
[2020-09-09] MEDS ORDERED: ONDANSETRON 4 MG ORAL DISINTEGRATING TAB PO SCH (22:15)
[2020-09-09 22:49] VITALS: BP 168/89
== END 2020-09-09 22:49 | disposition home or self-care (01) ==
LOC: M ED 17:49
DX: R11.2 Nausea with vomiting, unspecified (principal); T41.45XA Adverse effect of unspecified anesthetic, initial encounter; Y92.9 Unspecified place or not applicable; Y93.9 Activity, unspecified; I10 Essential (primary) hypertension; E78.5 Hyperlipidemia, unspecified; Z79.82 Long term (current) use of aspirin; Z79.899 Other long term (current) drug therapy
CPT/HCPCS: 80048; 80076; 83690; 85025; 96361; 96374; 99284; Q0162

== ENCOUNTER → 2020-09-17 | Outpatient (REF) | payer BC ==
[2020-09-17 11:45] LABS: BLOOD UREA NITROGEN 14 MG/DL (7-18); CALCIUM LEVEL 9.1 MG/DL (8.5-10.1); CARBON DIOXIDE LEVEL 31 MEQ/L (21-32); CHLORIDE LEVEL 105 MEQ/L (98-107); CREATININE FOR GFR 0.84 MG/DL (0.70-1.30); GLOMERULAR FILTRATION RATE > 60.0 (>56); GLUCOSE, FASTING 114 MG/DL (70-100); POTASSIUM SERUM 4.2 MEQ/L (3.5-5.1); SODIUM LEVEL 141 MEQ/L (136-145)
== END ==
LOC: M SFHCCLAY 08:21
PROVIDERS: ATTEND Family Medicine
DX: I11.9 Hypertensive heart disease without heart failure (principal)

== ENCOUNTER → 2020-11-26 | Outpatient (REF) | payer BC ==
[2020-11-26 16:43] LABS: BLOOD UREA NITROGEN 8 MG/DL (7-18); CALCIUM LEVEL 9.1 MG/DL (8.5-10.1); CARBON DIOXIDE LEVEL 30 MEQ/L (21-32); CHLORIDE LEVEL 107 MEQ/L (98-107); CREATININE FOR GFR 0.72 MG/DL (0.70-1.30); GLOMERULAR FILTRATION RATE > 60.0 (>56); GLUCOSE, FASTING 115 MG/DL (70-100); POTASSIUM SERUM 4.3 MEQ/L (3.5-5.1); SODIUM LEVEL 141 MEQ/L (136-145)
== END ==
LOC: M SFHCCLAY 09:34
PROVIDERS: ATTEND Family Medicine
DX: I11.9 Hypertensive heart disease without heart failure (principal)

== ENCOUNTER → 2020-12-31 | Outpatient (REF) | payer BC ==
[2020-12-31 16:42] LABS: BLOOD UREA NITROGEN 15 MG/DL (7-18); CARBON DIOXIDE LEVEL 29 MEQ/L (21-32); CHLORIDE LEVEL 106 MEQ/L (98-107); CREATININE FOR GFR 0.76 MG/DL (0.70-1.30); GLOMERULAR FILTRATION RATE > 60.0 (>56); GLUCOSE, FASTING 97 MG/DL (70-100); POTASSIUM SERUM 3.7 MEQ/L (3.5-5.1); SODIUM LEVEL 140 MEQ/L (136-145)
== END ==
LOC: M SFHCCLAY 10:02
PROVIDERS: ATTEND Family Medicine
DX: I11.9 Hypertensive heart disease without heart failure (principal); R73.03 Prediabetes

== ENCOUNTER → 2021-01-20 | Outpatient (CLI) | payer BC ==
[~2021-01-20] MED LIST changes: +GASTROGRAFIN SOLUTION 30ML (Q9963) As Ordered ONE; +ISOVUE-370 76% 100ML VIAL As Ordered ONE
--- NOTE | 2021-01-20 13:11 | REP ---
INDICATION: LOWER ABD PAIN. COMPARISON: None TECHNIQUE: Axial contrast-enhanced images from the lung bases to the pubic symphysis using oral and 100 cc Isovue 370 intravenous contrast material. Coronal and sagittal reformations obtained. This CT examination was performed using the following dose reduction techniques: Automated exposure control, adjustment of mA and/or kv according to the patient's size, and the use of iterative reconstruction technique. FINDINGS: Liver includes few hypodensities measuring up to 1.4 cm which are nonspecific, but may represent small cysts. Spleen, pancreas, gallbladder, bilateral adrenal glands and kidneys are normal. Small bowel including terminal ileum appears normal. Large bowel demonstrates normal cecum and appendix. There appears to be a short segment of mucosal thickening involving the mid sigmoid colon (series 201 images 114-130) which is nonspecific and without surrounding inflammatory stranding. Few scattered diverticula noted without acute diverticulitis. Pelvis demonstrates normal bladder and age-appropriate prostate/seminal vesicles. Small fat containing periumbilical hernia measures 2 cm. No ascites. No free air. No intraperitoneal or retroperitoneal adenopathy. Abdominal aorta and vasculature appear normal. Musculoskeletal structures are intact and without acute osseous abnormality. IMPRESSION: 1. Short segment of mucosal thickening involving the mid sigmoid colon is nonspecific. Colonoscopy may be warranted to exclude the possibility of underlying pathology including neoplasm. 2. Small fat containing periumbilical hernia. 3. Two hepatic hypodensities which are nonspecific by current CT evaluation. Consider follow-up ultrasound. <Electronically signed by Kwan Raymond > 01/20/21 [id number]
== END ==
LOC: M RAD 11:01
PROVIDERS: ATTEND Family Medicine
DX: R10.30 Lower abdominal pain, unspecified (principal); K57.30 Diverticulosis of large intestine without perforation or abscess without bleeding; K42.9 Umbilical hernia without obstruction or gangrene; K76.89 Other specified diseases of liver
CPT/HCPCS: 74177; Q9963; Q9967

== ENCOUNTER → 2021-02-04 | Outpatient (CLI) | payer BC ==
[~2021-02-04] MED LIST changes: -GASTROGRAFIN SOLUTION 30ML (Q9963) As Ordered ONE; -ISOVUE-370 76% 100ML VIAL As Ordered ONE
--- NOTE | 2021-02-04 09:38 | REP ---
INDICATION: ABN FINDING IMAG CT. COMPARISON: CT 01/20/2021. TECHNIQUE: Real-time sonographic evaluation of right upper quadrant performed. FINDINGS: The gallbladder demonstrates no evidence of intraluminal sludge or calculi, wall thickening or pericholecystic fluid. There is no intrahepatic biliary dilatation. The common bile duct is somewhat dilated measuring 10 mm maximally. In the left lobe of the liver there is a 1.5 cm cyst corresponding to 1 of the nodules seen on the recent CT scan. The nodule in the right lobe of the liver which measured 1 cm in diameter is not visualized sonographically. The visualized pancreas is grossly unremarkable, not well seen due to overlying bowel gas. The right kidney demonstrates no hydronephrosis, with a normal size of 13.5 cm in length. No free fluid is seen. IMPRESSION: No gallstones or gallbladder wall thickening. Common bile duct dilated up to 10 mm, of uncertain significance. In the left lobe of the liver a 1.5 cm cyst corresponds to 1 of the nodules seen on the recent CT scan. The 1 cm nodule in the right lobe of the liver is not visualized sonographically. Recommend dedicated MRI of the liver with and without contrast to evaluate the right lobe liver nodule, including MRCP images to evaluate the common bile duct. <Electronically signed by Austen De Paz > 02/04/21 [id number]
== END ==
LOC: M RAD 08:45
PROVIDERS: ATTEND Family Medicine
DX: R93.5 Abnormal findings on diagnostic imaging of other abdominal regions, including retroperitoneum (principal); K76.89 Other specified diseases of liver

== ENCOUNTER → 2021-04-12 | Outpatient (CLI) | payer BC ==
[~2021-04-12] MED LIST changes: +PROHANCE 279.3MG/ML 15ML VIAL As Ordered ONE; +PROHANCE 279.3MG/ML 5ML VIAL As Ordered ONE
--- NOTE | 2021-04-13 08:23 | REP ---
INDICATION: LIVER NODULES. CT study showed 2 hypodensities in the liver 1 of which proved to be a 1.5 cm cyst on ultrasound February 04, 2021. The other was not seen sonographically. Common bile duct was dilated to 10 mm on ultrasound. COMPARISON: CT study abdomen January 20, 2021. Sonography February 04, 2021. TECHNIQUE: Abdominal MRI study is performed without and with intravenous gadolinium. Axial and coronal T1 and T2 weighted sequences include spin echo, fast spin echo, diffusion, gradient echo, in and out of phase, and dynamically acquired sequential postcontrast images. Gadolinium enhancement dose is 18 mL of intravenous ProHance. FINDINGS: There is no evidence of intrahepatic biliary ductal dilation. The common hepatic duct segment is mildly prominent measuring 10 mm corresponding with the ultrasound measurement. The distal CBD measures 8 mm. There is no visible pancreatic mass or cyst seen. The pancreatic head has a somewhat elongate vertical configuration but no clear mass effect. Pancreatic duct is not dilated. There is a descending duodenal diverticulum visible on MR and CT images. There is no visible duodenal mass. In addition, there are 3 or 4 small left periaortic lymph nodes at the level of the ascending duodenum. The largest of these measures 1.5 x 0.7 cm. In the left lobe of the liver, there is a 1.2 cm low T1 high T2 signal intensity nonenhancing liver cyst. The lesion in the right lobe of the liver is subtly T2 hyperintense and shows gradual enhancement and filling in on postcontrast images consistent with hemangioma. It is surrounded by a segmental pattern of hypervascularity consistent with localized vascular shunting. There is a similar area in the left lobe of the liver laterally with 2 small subcentimeter areas which fill in on the 8 minute post contrast injected sequence. 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 The right lobe M angioma measures 1.1 cm in greatest diameter and the 2 additional left lobe lesions measure 0.7 and 0.6 cm. On the SB 1500 diffusion-weighted scan, there are subtle foci of slightly restricted diffusion in the liver indicating additional focal abnormalities in the liver. There are total of 6-7 small hepatic foci. The spleen is normal in size homogeneous in texture. No renal mass or cyst is seen. No hydronephrosis is noted. Normal adrenal glands are observed bilaterally. On review of the recent CT study, there is an area of mural thickening in the sigmoid colon raising the possibility of a colonic neoplasm. IMPRESSION: Complex imaging findings. Dilated CBD without intrahepatic biliary ductal dilation or obvious pancreatic or duodenal mass. Correlation with liver function studies is recommended.. If these are abnormal, consider ERCP. There are multiple liver lesions seen on diffusion-weighted scans. These are small. Two or 3 of these may be consistent with hemangiomas although they are not typical. The left periaortic lymph nodes and the possibility of a sigmoid colon neoplastic lesion are worrisome. Recommend colonoscopy or colonography for further evaluation. There is no suitable target for image guided needle biopsy. <Electronically signed by Jose Shelton > 04/13/21 0810
== END ==
LOC: M RAD 16:26
PROVIDERS: ATTEND Family Medicine
DX: K76.89 Other specified diseases of liver (principal); K59.89 Other specified functional intestinal disorders
CPT/HCPCS: 74183; A9576

== ENCOUNTER → 2021-04-29 | Outpatient (REF) | payer BC ==
[~2021-04-29] MED LIST changes: -PROHANCE 279.3MG/ML 15ML VIAL As Ordered ONE; -PROHANCE 279.3MG/ML 5ML VIAL As Ordered ONE
[2021-04-29 12:06] LABS: FREE T4 1.22 NG/DL (0.76-1.46); THYROID STIMULATING HORMONE 0.541 uIU/ML (0.358-3.740)
== END ==
LOC: M SFHCCLAY 09:11
PROVIDERS: ATTEND Family Medicine
DX: Z12.5 Encounter for screening for malignant neoplasm of prostate (principal); R63.4 Abnormal weight loss
CPT/HCPCS: 84439; 84443; G0103

== ENCOUNTER → 2021-05-12 | Outpatient (CLI) | payer BC ==
[~2021-05-12] MED LIST changes: +ISOVUE-370 76% 100ML VIAL ONE
--- NOTE | 2021-05-12 15:15 | REP ---
INDICATION: WT LOSS, NICOTINE DEPENDENCE COMPARISON: None. TECHNIQUE: Standard helical technique after the intravenous administration of 100 cc Isovue 370 FINDINGS: There is mediastinal and bilateral hilar adenopathy. There are no pleural or pericardial effusions. The imaged upper abdomen shows numerous focal areas of decreased density some possibly having peripheral contrast enhancement. One in particular in the posterior segment of the right lower lobe might have increased in size from 1.5 cm maximal 2 2 cm maximal. These are poorly imaged and difficult to evaluate on this chest CT. Evaluation of the osseous structures show them to be within normal limits. Evaluation of the lung palacio shows a 1 cm sized spiculated right apical nodule. There is an 8 mm sized spiculated nodule in the posterior segment of the right upper lobe. There is a 1 cm sized irregular nodule in the right middle lobe. There is a spiculated density in the apicoposterior segment of the left upper lobe which measures 2.4 cm in its greatest dimension. There are numerous additional lung nodules scattered diffusely throughout the lung palacio in the 3 to 7 mm range. These are too numerous to count or individually assess. Emphysematous changes are seen throughout the lung palacio with biapical predominance. IMPRESSION: 1. Mediastinal and hilar adenopathy. 2. Spiculated lung lesions and numerous pulmonary nodules as described above all suspicious for neoplasm. 3. Suspicious hepatic lesions. Although the MRI finding of the abdomen of 04/12/2021 was somewhat indeterminate I am concerned that at least some of these partially imaged hepatic lesions could represent metastatic foci. <Electronically signed by Elliot Bello > 05/12/21 [id number]
== END ==
LOC: M PLAIMG 14:00
PROVIDERS: ATTEND Family Medicine
DX: R91.8 Other nonspecific abnormal finding of lung field (principal); R93.2 Abnormal findings on diagnostic imaging of liver and biliary tract; R63.4 Abnormal weight loss; F17.210 Nicotine dependence, cigarettes, uncomplicated
CPT/HCPCS: 71260; Q9967

== ENCOUNTER → 2021-05-24 | Outpatient (CLI) | payer BC ==
[~2021-05-24] MED LIST changes: -ISOVUE-370 76% 100ML VIAL ONE
[2021-05-24 12:16] LABS: BASO # 0.1 10^3/uL (0.0-0.2); BASO % 0.8 % (0.0-1.0); EOS # 0.1 10^3/uL (0.0-0.5); EOS % 0.8 % (0.0-3.0); LYMPH # 2.2 10^3/uL (1.5-5.0); LYMPH % 23.3 % (24.0-44.0); MEAN CORPUSCULAR HEMOGLOBIN 29.1 pg (27.0-33.0); MEAN CORPUSCULAR HGB CONC 32.5 g/dl (32.0-36.5); MEAN CORPUSCULAR VOLUME 89.5 fl (80.0-96.0); MONO # 0.5 10^3/uL (0.0-0.8); MONO % 5.6 % (2.0-8.0); NEUTROPHILS # 6.6 10^3/uL (1.5-8.5); NEUTROPHILS % 69.1 % (36.0-66.0); PLATELET COUNT, AUTOMATED 250 10^3/uL (150-450); RED BLOOD COUNT 4.47 10^6/uL (4.30-6.10); WHITE BLOOD COUNT 9.5 10^3/uL (4.0-10.0)
[2021-05-24 12:29] LABS: INR 0.95
[2021-05-24 12:30] LABS: PARTIAL THROMBOPLASTIN TIME 32.2 SECONDS (25.9-37.0)
[2021-05-24 12:46] LABS: BLOOD UREA NITROGEN 16 MG/DL (7-18); CALCIUM LEVEL 9.1 MG/DL (8.5-10.1); CARBON DIOXIDE LEVEL 31 MEQ/L (21-32); CHLORIDE LEVEL 105 MEQ/L (98-107); CREATININE FOR GFR 0.72 MG/DL (0.70-1.30); GLOMERULAR FILTRATION RATE > 60.0 (>56); GLUCOSE, FASTING 89 MG/DL (70-100); POTASSIUM SERUM 3.4 MEQ/L (3.5-5.1); SODIUM LEVEL 140 MEQ/L (136-145)
[2021-05-24 13:16] LABS: CA19-9 TUMOR MARKER,CARBOHYDRA 78.6 U/ML (<35.0)
== END ==
LOC: M WUC 10:23
PROVIDERS: ATTEND Internal Medicine Pulmonary Disease
DX: R91.8 Other nonspecific abnormal finding of lung field (principal); R10.9 Unspecified abdominal pain
CPT/HCPCS: 36415; 80048; 82378; 85025; 85610; 85730; 86301; 86480; 86606; 86612; 86635; 86698; 87899; G0103

== ENCOUNTER → 2021-05-31 | Outpatient (CLI) | payer BC ==
[~2021-05-31] MED LIST changes: +OMEGCAP4 PO
--- NOTE | 2021-06-01 19:18 | REP ---
INDICATION: DIAGNOSING LUNG NODULE R91.1. COMPARISON: CT abdomen and pelvis with IV contrast, 01/20/2021; CT chest with contrast, 05/12/2021.. TECHNIQUE: Following the intravenous injection of 8.3 mCi of FDG and a standard uptake period, a noncontrast CT scan, followed by a PET scan were acquired along the length of the body from the base of the skull to the mid thighs. A non-contrast CT was used for anatomic localization and photon attenuation correction of the PET scan. Patient's blood glucose level at the time of injection was not obtained. FINDINGS: Head and neck: There is a normal distribution of FDG activity in the visualized brain parenchyma. There is normal uptake within the soft tissues of the neck and glandular structures. There is hypermetabolic activity in the palatine tonsils and base of the tongue, felt to be physiologic. The thyroid gland is diffusely enlarged without focal nodules. There is no abnormal FDG activity within the thyroid gland. There is no lymphadenopathy identified. Chest: There is moderate upper lobe predominant centrilobular emphysema. There is a 7 x 4 mm soft tissue density nodule in the right lung apex (image 62) demonstrating FDG activity, max SUV 2.6. There is a 15 x 12 mm peripheral soft tissue density mass in the apicoposterior segment of the upper lobe of the left lung, demonstrating hypermetabolic activity, max SUV 8.1. There are multiple smaller soft tissue density nodules throughout both lungs demonstrating FDG activity, max SUV 1.9. There are no pleural effusions. There is a 12 x 9 mm AP window lymph node demonstrating hypermetabolic activity, max SUV 6.8. There is an 11 x 8 mm right hilar lymph node demonstrating hypermetabolic activity, max SUV 5.9. There is a 15 x 7 mm right hilar lymph node demonstrating hypermetabolic activity, max SUV 6.8 the heart size is normal. There is no pericardial effusion. There is minimal calcific vascular disease of the thoracic aorta and coronary arteries. Abdomen and pelvis: There is an 11 x 9 mm low-density nodule in the anterior segment of the right hepatic lobe, demonstrating hypermetabolic activity, max SUV 7.0. There is a 12 x 10 mm hypermetabolic nodule in the posterior segment of the right hepatic lobe, max SUV 6.6. There is an 11 mm in diameter hypodense nodule in the left hepatic lobe, non FDG avid, consistent with a benign cyst or hemangioma. There is a 2.9 x 2.5 x 2.5 cm heterogeneously hypermetabolic (max SUV 9.8) mass to the right of the superior mesenteric artery and may be originating in the uncinate process of the pancreas, but may be a lymph node mass, inferior to the pancreas. There is an interaortocaval lymph node measuring 14 x 6 mm demonstrating hypermetabolic activity, max SUV 6.8. There is a left periaortic lymph node, measuring 2.5 x 1.2 cm demonstrating hypermetabolic activity, max SUV 8.3. There are few hypermetabolic mesenteric lymph nodes, max SUV 5.8. There is thickening of the limbs of both adrenal glands consistent with hyperplasia. There is a normal distribution of FDG activity in the genitourinary tract. Musculoskeletal: There are no suspicious hypermetabolic, osteolytic or osteo sclerotic lesions. IMPRESSION: 1. Peripheral soft tissue density mass in the upper lobe of the left lung consistent with a primary bronchogenic carcinoma. 2. Multiple hypermetabolic pulmonary nodules consistent with metastatic disease of indeterminate origin. 3. Hypermetabolic nodules in the liver consistent with metastatic disease. 4. Hypermetabolic mass in the retroperitoneum, may be originating within the uncinate process of the pancreas or may be a lymph node mass. 5. Retroperitoneal lymphadenopathy. 6. Mesenteric lymphadenopathy. 7. Other findings as noted. <Electronically signed by Miguel Angel Edouard > 06/01/211913
== END ==
LOC: M PLARAD 08:44
PROVIDERS: ATTEND Specialist
DX: R91.8 Other nonspecific abnormal finding of lung field (principal); R59.0 Localized enlarged lymph nodes
CPT/HCPCS: 78815; A9552

== ENCOUNTER → 2021-06-02 | Outpatient (CLI) | payer BC ==
[~2021-06-02] MED LIST changes: +LIDOCAINE 1% MDV 20ML VIAL As Ordered ONE; +MIDAZOLAM INJ 2MG/2ML VIAL (J2250 PER 1MG) As Ordered ONE; +NS 1,000 ML IV SCH; +ceFAZolin 2 GM/D5W 50 ML IV BAG (J0690 PER 500MG) As Ordered ONE; +ceFAZolin SOD 2 GM in IV 1 EA IV ONE; +diphenhydrAMINE 50MG/ML VIAL (J1200) As Ordered ONE; +fentaNYL 100 MCG/2 ML INJECTION (J3010) As Ordered ONE
--- NOTE | 2021-06-02 13:45 | IRHP ---
[facility] IR Pre-Procedure H & P General Date of Service: Jun 02, 2021 Procedure: Same Day Surgery Interval History and Physical I have seen the patient and reviewed last H & P performed within 30 days. There is no significant interval change. History of Present Illness Chief Complaint The patient is a 55-year-old male admitted with a reason for visit of Lung Ca. PRE-PROCEDURE DIAGNOSIS: Lung cancer HEART: Normal rate. LUNGS: Normal breathing at rest. ASA Classification ASA Classification: III-Severe systemic dis. Mallampati Score: II NPO: Yes Problems with prior sedation: No Obstructive Sleep Apnea: No Plan moderate sedation Allergies Coded Allergies: Anesthetics - Bren Type- Parabens (Verified Adverse Reaction, Mild, gi upset , 05/27/21) Home Medications Scheduled Aspirin (Aspirin), 81 MG PO DAILY, (Reported) Atenolol (Atenolol), 1 TAB PO DAILY, (Reported) Atorvastatin Calcium (Atorvastatin Calcium), 1 TAB PO DAILY, (Reported) Lisinopril (Lisinopril), 1 TAB PO DAILY, (Reported) [place]-3/Dha/Epa/Fish Oil ([place]-3 Fish Oil 1,000 mg Sfgl), 1 CAP PO DAILY, (Reported) DOMINIQUE GOVEA MD Jun 02, 2021 13:45
[2021-06-02 16:32] VITALS: BP 124/65
--- NOTE | 2021-06-03 15:47 | IRPON ---
IR Postoperative Note Date Of Procedure: Jun 02, 2021 Time Of Procedure: 16:00 IR Postoperative Note IR Ultrasound and fluoroscopy guided port placement IR Ultrasound of the neck. IR Moderate sedation. Clinical indication: Lung cancer. Physician: Dr. Enriquez. Procedure: The patient was advised of the benefits, risks, and alternatives of the procedure and informed consent was obtained. A time-out was performed with verification of the patient's name, MRN, site of procedure and type of procedure to be performed. The patient was positioned in the supine position on the angiographic table. The site was prepped and draped in the usual sterile fashion. Moderate sedation was performed by the physician including the presence of an independent trained RN who assisted and monitored the patient's level of consciousness and physiologic status. Following the administration of fentanyl and Versed , the physician spent 45 minutes of continuous face to face time with the patient. Ultrasound of the neck reveals a patent and compressible right internal jugular vein. A blueprint processor radiograph reveals no gross abnormality. The neck and anterior chest wall were anesthetized with lidocaine. The right internal jugular vein was accessed using a microintroducer needle under ultrasound guidance, via a lateral approach. An 018 wire was advanced into the superior vena cava, the needle was removed and a microsheath was placed. An Amplatz wire was then passed into the inferior vena cava. An incision at the internal jugular vein access site and anterior chest wall were made using a scalpel. An incision was made at the anterior chest wall. A small pocket was created using a combination of blunt and sharp dissection. A tunneling device was then used to pass the catheter from the pocket to the neck puncture site. An 8- [place] Ang[employer] Plates Smart power port was then positioned in the pocket. The catheter was then measured and cut. The introducer sheath was exchanged for a peel-away sheath. The catheter was passed through the peel-away sheath into the internal jugular vein and the peel-away sheath was removed. The port tip was positioned at the cavoatrial junction. The port was then accessed with a Linares needle. The port flushes and aspirates well. The puncture site in the neck was closed. The chest wall incision was then closed with 2-0 Vicryl and 4-0 Monocryl. Glue and Steri- Strips were applied. A sterile dressing was then applied. The patient tolerated the procedure well and was returned to the PRU in stable condition. Estimated blood loss: <5 ml. Complications: None. Conclusion: 1. Successful placement of an 8-[place] Angio dynamics Smart power port via the right internal jugular vein. The port is ready for immediate use. 2. Patient to follow up in IR clinic in 2 weeks. Thank you for this referral. DOMINIQUE ENRIQUEZ MD Jun 03, 2021 15:47
== END ==
LOC: M IRPRO 12:20
PROVIDERS: ATTEND Specialist
DX: C34.90 Malignant neoplasm of unspecified part of unspecified bronchus or lung (principal); I10 Essential (primary) hypertension; Z88.4 Allergy status to anesthetic agent; Z79.82 Long term (current) use of aspirin; Z79.899 Other long term (current) drug therapy
CPT/HCPCS: 36561; 99152; 99153; C1769; C1788; C1894; J0690; J1200; J1642; J1644; J2250; J3010

== ENCOUNTER → 2021-06-15 | Outpatient (CLI) | payer BC ==
[~2021-06-15] MED LIST changes: +AMLO1TAB25 PO; +CHLO125TA PO; +ESOM20CA25 PO; -LIDOCAINE 1% MDV 20ML VIAL As Ordered ONE; +LISI40TA4 PO; -MIDAZOLAM INJ 2MG/2ML VIAL (J2250 PER 1MG) As Ordered ONE; -NS 1,000 ML IV SCH; +OMEP1CAP73 PO; +ONDA-84 PO; +POLY1POW38 PO; +POTA-151 PO; +PROC10TA5 PO; +TRAM50TA2 PO; -ceFAZolin 2 GM/D5W 50 ML IV BAG (J0690 PER 500MG) As Ordered ONE; -ceFAZolin SOD 2 GM in IV 1 EA IV ONE; -diphenhydrAMINE 50MG/ML VIAL (J1200) As Ordered ONE; -fentaNYL 100 MCG/2 ML INJECTION (J3010) As Ordered ONE
== END ==
LOC: M IRPRO 09:58
PROVIDERS: ATTEND Specialist
DX: R91.1 Solitary pulmonary nodule (principal); Z53.8 Procedure and treatment not carried out for other reasons

== ENCOUNTER → 2021-06-22 | Outpatient (POV) | payer BC ==
[~2021-06-22] VITALS: Ht 182.9 cm; Wt 84.0 kg
[~2021-06-22] MED LIST changes: -AMLO1TAB25 PO; -CHLO125TA PO; -ESOM20CA25 PO; -LISI40TA4 PO; -OMEP1CAP73 PO; -ONDA-84 PO; -POLY1POW38 PO; -POTA-151 PO; -PROC10TA5 PO; -TRAM50TA2 PO
[2021-06-22 09:10] VITALS: BP 141/79
--- NOTE | 2021-06-24 14:35 | IRPN ---
[facility] IR Progress Note IR Progress Note DATE: Jun 22, 2021 FOLLOW-UP: Patient is status post port placement. Patient denies pain or discomfort, fevers, chills or discharge at site. ON EXAMINATION: Port site appears to be healing well. Steri-Strips and glue are in place. No redness fluctuance or discharge. IMPRESSION: Doing well status post port placement. No further follow-up scheduled unless initiated by patient and/or referring provider. Thank you for this referral Allergies Coded Allergies: Anesthetics - Bren Type- Parabens (Verified Adverse Reaction, Mild, gi upset , 05/27/21) VS,Fishbone, I+O VS, Fishbone, I+O Vital Signs Date Time Temp Pulse Resp B/P (MAP) Pulse Ox O2 Delivery O2 Flow Rate FiO2 06/22/21 09:10 97.8 78 20 141/79 (99) 98 Room Air DOMINIQUE GOVEA MD Jun 24, 2021 14:35
== END ==
LOC: M IRPOV 09:03
PROVIDERS: ATTEND Radiology Diagnostic Radiology
DX: Z45.2 Encounter for adjustment and management of vascular access device (principal)

== ENCOUNTER → 2021-07-02 | Outpatient (CLI) | payer BC ==
[~2021-07-02] MED LIST changes: +AMLO1TAB25 PO; +CHLO125TA PO; +ESOM20CA25 PO; +LIDOCAINE 1% MDV 20ML VIAL As Ordered ONE; +LISI40TA4 PO; +OMEP1CAP73 PO; +ONDA-84 PO; +POLY1POW38 PO; +POTA-151 PO; +PROC10TA5 PO; +TRAM50TA2 PO
[2021-07-02 12:00] VITALS: BP 120/70
== END ==
LOC: M IRPRO 08:05
PROVIDERS: ATTEND Specialist
DX: C78.7 Secondary malignant neoplasm of liver and intrahepatic bile duct (principal)

== ENCOUNTER → 2021-07-28 | Outpatient (CLI) | payer BC ==
[~2021-07-28] MED LIST changes: -AMLO1TAB25 PO; -CHLO125TA PO; -ESOM20CA25 PO; -LIDOCAINE 1% MDV 20ML VIAL As Ordered ONE; -LISI40TA4 PO; -OMEP1CAP73 PO; -ONDA-84 PO; -POLY1POW38 PO; -POTA-151 PO; -PROC10TA5 PO
== END ==
LOC: M LABSMTC 12:17
PROVIDERS: ATTEND Anesthesiology
DX: Z01.812 Encounter for preprocedural laboratory examination (principal); Z20.822 Contact with and (suspected) exposure to COVID-19

== ENCOUNTER 2021-08-02 09:02 | Day surgery (SDC) | payer BC ==
[~2021-08-02] VITALS: Ht 182.9 cm; Wt 79.8 kg
[~2021-08-02 09:02] MED LIST changes: +AMLO1TAB25 PO; +CHLO125TA PO; +ESOM20CA25 PO; +LISI40TA4 PO; +NS 1,000 ML IV ONE; +POLY1POW38 PO
[2021-08-02] MEDS ORDERED: LIDOCAINE 2% 100MG/5ML SDV (FOR ANES.) As Ordered ONE (12:24)
[2021-08-02] MEDS ORDERED: ONDANSETRON 4MG/2ML VIAL As Ordered ONE (12:24)
[2021-08-02 12:25] VITALS: BP 109/67
[2021-08-02] MEDS ORDERED: propofoL 200 MG/20 ML VIAL As Ordered ONE (12:25)
== END 2021-08-02 12:37 | disposition home or self-care (01) ==
LOC: M OPP 09:02
PROVIDERS: ATTEND Internal Medicine Gastroenterology
DX: C17.0 Malignant neoplasm of duodenum (principal); K57.30 Diverticulosis of large intestine without perforation or abscess without bleeding; K64.8 Other hemorrhoids; R93.3 Abnormal findings on diagnostic imaging of other parts of digestive tract; Z80.0 Family history of malignant neoplasm of digestive organs; K31.89 Other diseases of stomach and duodenum; K31.5 Obstruction of duodenum; K44.9 Diaphragmatic hernia without obstruction or gangrene; Z79.82 Long term (current) use of aspirin; Z79.891 Long term (current) use of opiate analgesic; Z79.899 Other long term (current) drug therapy; Z88.8 Allergy status to other drugs, medicaments and biological substances; Z85.118 Personal history of other malignant neoplasm of bronchus and lung; F17.210 Nicotine dependence, cigarettes, uncomplicated
CPT/HCPCS: 43239; 45378; 88305; 88341; 88342; J2405

== ENCOUNTER 2021-09-24 08:28 | Observation (INO) | payer BC ==
[~2021-09-24] VITALS: Ht 182.9 cm; Wt 70.8 kg
[~2021-09-24 08:28] MED LIST changes: -NS 1,000 ML IV ONE; +OMEP1CAP73 PO; +ONDA-84 PO; +POTA-151 PO; +PROC10TA5 PO
[2021-09-24] MEDS: ATORVASTATIN 20 MG TAB PO SCH (09:00)
[2021-09-24] MEDS ORDERED: SODIUM CHLORIDE 0.9% INJ 10 ML SYR IV PRN (09:10)
[2021-09-24] MEDS ORDERED: NS 2,180 ML in IV 1 EA IV ONE (09:35)
[2021-09-24 10:05] LABS: BASO % 0.4 % (0.0-1.0); EOS % 0.2 % (0.0-3.0); HEMATOCRIT 38.3 % (42.0-52.0); HEMOGLOBIN 13.3 g/dl (13.5-17.5); LYMPH # 1.1 10^3/uL (1.5-5.0); MEAN CORPUSCULAR HEMOGLOBIN 29.6 pg (27.0-33.0); MEAN CORPUSCULAR HGB CONC 34.7 g/dl (32.0-36.5); MEAN CORPUSCULAR VOLUME 85.3 fl (80.0-96.0); MONO # 0.9 10^3/uL (0.0-0.8); MONO % 10.7 % (2.0-8.0); NEUTROPHILS # 6.4 10^3/uL (1.5-8.5); NEUTROPHILS % 75.2 % (36.0-66.0); PLATELET COUNT, AUTOMATED 195 10^3/uL (150-450); RED BLOOD COUNT 4.49 10^6/uL (4.30-6.10); WHITE BLOOD COUNT 8.5 10^3/uL (4.0-10.0)
[2021-09-24 10:30] LABS: ALBUMIN 3.5 GM/DL (3.2-5.2); BILIRUBIN,DIRECT 0.3 MG/DL (0.0-0.2); TOTAL PROTEIN 6.7 GM/DL (6.4-8.2)
[2021-09-24] MEDS ORDERED: KCL 10MEQ/100ML SWI (KRUN) 10 MEQ in IV 1 EA IV ONE (13:30)
[2021-09-24] MEDS ORDERED: ESOM20SU PO (13:32)
[2021-09-24] MEDS ORDERED: SUCR1SS PO (13:33)
[2021-09-24] MEDS ORDERED: DICY20TA3 PO (13:33)
[2021-09-24] MEDS: KCL 20MEQ IN 0.45NS 1000ML 1,000 ML IV SCH ×2 (14:00→16:53)
[2021-09-24 14:03] LABS: RSV AMPLIFICATION NEGATIVE (NEGATIVE)
[2021-09-24 14:35] LABS: CALCIUM LEVEL 8.3 MG/DL (8.5-10.1); CREATININE FOR GFR 2.59 MG/DL (0.70-1.30); GLOMERULAR FILTRATION RATE 27.4 (>56); POTASSIUM SERUM 2.5 MEQ/L (3.5-5.1)
[2021-09-24] MEDS ORDERED: HOME MED LIST COMPLETE! XX SCH (14:45)
[2021-09-24] MEDS: NS 1,000 ML IV SCH ×2 (15:00→21:00)
[2021-09-24] MEDS: SUCRALFATE SUSP 1GM/10ML UD PO SCH ×2 (16:55→21:00)
[2021-09-24] MEDS: OMEPRAZOLE 20MG CAP PO SCH (16:56)
[2021-09-24] MEDS: ASPIRIN 81 MG CHEW TABLET PO SCH (16:57)
[2021-09-25] VITALS (7 sets, daily range): BP systolic 94–107; BP diastolic 59–67
[2021-09-25] MEDS: ENOXAPARIN 30MG/0.3ML SYRINGE (J1650 PER 10MG) SC SCH ×2 (01:28→20:11)
[2021-09-25] MEDS: KCL 20MEQ IN 0.45NS 1000ML 1,000 ML IV SCH ×3 (04:16→18:20)
[2021-09-25 08:22] LABS: HEMATOCRIT 37.6 % (42.0-52.0); HEMOGLOBIN 12.8 g/dl (13.5-17.5); MEAN CORPUSCULAR HEMOGLOBIN 29.2 pg (27.0-33.0); MEAN CORPUSCULAR VOLUME 85.8 fl (80.0-96.0); PLATELET COUNT, AUTOMATED 171 10^3/uL (150-450); RED BLOOD COUNT 4.38 10^6/uL (4.30-6.10); WHITE BLOOD COUNT 8.6 10^3/uL (4.0-10.0)
[2021-09-25] MEDS: SUCRALFATE SUSP 1GM/10ML UD PO SCH ×4 (08:26→20:09)
[2021-09-25] MEDS: OMEPRAZOLE 20MG CAP PO SCH (08:26)
[2021-09-25] MEDS: ASPIRIN 81 MG CHEW TABLET PO SCH (08:26)
[2021-09-25] MEDS: ATORVASTATIN 20 MG TAB PO SCH (08:27)
[2021-09-25 09:15] LABS: CALCIUM LEVEL 7.7 MG/DL (8.5-10.1); CREATININE FOR GFR 2.12 MG/DL (0.70-1.30); GLOMERULAR FILTRATION RATE 34.6 (>56); MAGNESIUM LEVEL 2.4 MG/DL (1.8-2.4); POTASSIUM SERUM 2.4 MEQ/L (3.5-5.1)
[2021-09-25] MEDS: KCL 10MEQ/100ML SWI (KRUN) 10 MEQ in IV 1 EA IV SCH ×8 (09:54→22:59)
[2021-09-25 17:36] LABS: CALCIUM LEVEL 7.7 MG/DL (8.5-10.1); CREATININE FOR GFR 1.91 MG/DL (0.70-1.30); POTASSIUM SERUM 2.5 MEQ/L (3.5-5.1)
[2021-09-25] MEDS ORDERED: POTASSIUM CHLORIDE 10MEQ SR TABLET PO ONE (20:00)
[2021-09-25] MEDS ORDERED: KCL 10MEQ/100ML SWI (KRUN) 10 MEQ in IV 1 EA IV ONE (20:00)
[2021-09-26] MEDS: KCL 10MEQ/100ML SWI (KRUN) 10 MEQ in IV 1 EA IV SCH ×4 (00:01→04:02)
[2021-09-26 04:00] VITALS: BP 113/69
[2021-09-26] MEDS: KCL 20MEQ IN 0.45NS 1000ML 1,000 ML IV SCH (05:03)
[2021-09-26 05:42] LABS: HEMATOCRIT 36.9 % (42.0-52.0); MEAN CORPUSCULAR HEMOGLOBIN 29.7 pg (27.0-33.0); MEAN CORPUSCULAR HGB CONC 35.2 g/dl (32.0-36.5); MEAN CORPUSCULAR VOLUME 84.2 fl (80.0-96.0); PLATELET COUNT, AUTOMATED 168 10^3/uL (150-450); RED BLOOD COUNT 4.38 10^6/uL (4.30-6.10)
[2021-09-26 06:14] LABS: CREATININE FOR GFR 1.73 MG/DL (0.70-1.30); GLOMERULAR FILTRATION RATE 43.7 (>56); MAGNESIUM LEVEL 2.2 MG/DL (1.8-2.4); POTASSIUM SERUM 3.5 MEQ/L (3.5-5.1)
[2021-09-26] MEDS: ASPIRIN 81 MG CHEW TABLET PO SCH (07:55)
[2021-09-26] MEDS: ATORVASTATIN 20 MG TAB PO SCH (07:55)
[2021-09-26] MEDS: SUCRALFATE SUSP 1GM/10ML UD PO SCH (07:55)
[2021-09-26] MEDS: OMEPRAZOLE 20MG CAP PO SCH (07:55)
[2021-09-26 08:00] VITALS: BP 103/66
[2021-09-26] MEDS ORDERED: POTASSIUM CHLORIDE 10MEQ SR TABLET PO ONE (08:05)
== END 2021-09-26 09:47 | disposition home or self-care (01) ==
LOC: M ED 10:08 → M ED INP 15:39 → ENRESERV 21:38 → M PCU 09-25
PROVIDERS: ADMIT Family Medicine; ATTEND Family Medicine
DX: E87.6 Hypokalemia (principal); R11.2 Nausea with vomiting, unspecified; I95.1 Orthostatic hypotension; N17.9 Acute kidney failure, unspecified; N18.30 Chronic kidney disease, stage 3 unspecified; E78.5 Hyperlipidemia, unspecified; I10 Essential (primary) hypertension; C17.0 Malignant neoplasm of duodenum; C78.00 Secondary malignant neoplasm of unspecified lung; C78.7 Secondary malignant neoplasm of liver and intrahepatic bile duct; C77.2 Secondary and unspecified malignant neoplasm of intra-abdominal lymph nodes; C79.82 Secondary malignant neoplasm of genital organs; Z79.899 Other long term (current) drug therapy; F17.218 Nicotine dependence, cigarettes, with other nicotine-induced disorders; J44.9 Chronic obstructive pulmonary disease, unspecified
CPT/HCPCS: 36415; 71045; 80048; 80076; 83605; 83735; 85025; 85027; 87040; 87631; 93005; 96361; 96365; 96366; 96372; 99285; J1650; J3480

== ENCOUNTER → 2021-10-11 | Outpatient (CLI) | payer BC ==
[~2021-10-11] MED LIST changes: +ASPI-161 PO; +DICY20TA3 PO; +ESOM20SU PO; +GASTROGRAFIN SOLUTION 30ML (Q9963) ONE; +ISOVUE-370 76% 100ML VIAL ONE; +SUCR1SS PO; +[UNRECOGNIZED DRUG - CODE] IV
== END ==
LOC: M PLAIMG 09:18
PROVIDERS: ATTEND Specialist
DX: C17.0 Malignant neoplasm of duodenum (principal); K76.89 Other specified diseases of liver; K57.90 Diverticulosis of intestine, part unspecified, without perforation or abscess without bleeding; C78.01 Secondary malignant neoplasm of right lung; C78.02 Secondary malignant neoplasm of left lung; I70.0 Atherosclerosis of aorta; I25.10 Atherosclerotic heart disease of native coronary artery without angina pectoris
CPT/HCPCS: 71260; 74177; Q9963; Q9967

== ENCOUNTER 2021-10-14 18:32 | Observation (INO) | payer BC ==
[~2021-10-14] VITALS: Ht 182.9 cm; Wt 72.4 kg
[~2021-10-14 18:32] MED LIST changes: -ASPI-161 PO; -GASTROGRAFIN SOLUTION 30ML (Q9963) ONE; -ISOVUE-370 76% 100ML VIAL ONE; -[UNRECOGNIZED DRUG - CODE] IV
[2021-10-14 19:13] LABS: HEMATOCRIT 35.5 % (42.0-52.0); HEMOGLOBIN 12.6 g/dl (13.5-17.5); MEAN CORPUSCULAR HEMOGLOBIN 30.6 pg (27.0-33.0); MEAN CORPUSCULAR HGB CONC 35.5 g/dl (32.0-36.5); MEAN CORPUSCULAR VOLUME 86.2 fl (80.0-96.0); PLATELET COUNT, AUTOMATED 106 10^3/uL (150-450); RED BLOOD COUNT 4.12 10^6/uL (4.30-6.10); WHITE BLOOD COUNT 5.8 10^3/uL (4.0-10.0)
[2021-10-14 19:30] LABS: ABG BASE EXCESS 19.1 (-2.0-2.0); ABG HCO3 43.6 MEQ/L (22.0-26.0); ABG O2 SATURATION 95.9 % (95.0-99.0); ABG PARTIAL PRESSURE CO2 48.7 mmHg (35.0-45.0); ABG PARTIAL PRESSURE O2 75.7 mmHg (75.0-100.0); ABG STANDARD HCO3 43.3 MEQ/L (22.0-26.0); ABG TOTAL CO2 45.1 MEQ/L (22.0-29.0)
[2021-10-14] MEDS ORDERED: NS 1,930 ML in IV 1 EA IV ONE (19:30)
[2021-10-14 20:25] LABS: ALBUMIN 2.8 GM/DL (3.2-5.2); ALT/SGPT 32 U/L (12-78); BILIRUBIN,DIRECT 0.3 MG/DL (0.0-0.2); BILIRUBIN,TOTAL 0.8 MG/DL (0.2-1.0); BLOOD UREA NITROGEN 49 MG/DL (7-18); CALCIUM LEVEL 8.5 MG/DL (8.5-10.1); CARBON DIOXIDE LEVEL 54 MEQ/L (21-32); CHLORIDE LEVEL 74 MEQ/L (98-107); CREATININE FOR GFR 1.38 MG/DL (0.70-1.30); GLOMERULAR FILTRATION RATE 56.7 (>56); GLUCOSE, FASTING 114 MG/DL (70-100); LIPASE 284 U/L (73-393); NT-PRO BNP 1140 PG/ML (<125); POTASSIUM SERUM 2.6 MEQ/L (3.5-5.1); SODIUM LEVEL 127 MEQ/L (136-145); THYROID STIMULATING HORMONE 0.517 uIU/ML (0.358-3.740); THYROXINE (T4) 13.8 UG/DL (4.5-12.0); TOTAL PROTEIN 5.9 GM/DL (6.4-8.2)
[2021-10-14 20:31] LABS: BASOPHILS 1 % (0-1); LYMPHOCYTES 9 % (16-44); NEUTROPHILS 85 % (28-66); PLATELET ESTIMATE DECREASED (NORMAL)
[2021-10-14 20:32] LABS: ANISOCYTOSIS 1+
[2021-10-14 21:01] LABS: MAGNESIUM LEVEL 2.3 MG/DL (1.8-2.4)
[2021-10-14] MEDS ORDERED: POTASSIUM CHLORIDE 10MEQ SR TABLET PO ONE (21:10)
[2021-10-14] MEDS ORDERED: KCL 10MEQ/100ML SWI (KRUN) 10 MEQ in IV 1 EA IV ONE (21:35)
[2021-10-14] MEDS ORDERED: ASPI-161 PO (22:28)
[2021-10-14] MEDS ORDERED: HOME MED LIST COMPLETE! XX SCH ×2 (22:30→22:35)
[2021-10-14] MEDS ORDERED: PANTOPRAZOLE 40MG VIAL IV ONE (22:30)
[2021-10-14] MEDS ORDERED: ACETAMINOPHEN TAB 650MG DOSE (2X325MG) PO PRN (22:30)
[2021-10-14] MEDS ORDERED: PROMETHAZINE 25MG/ML 1ML VIAL IV PRN (22:30)
[2021-10-15] MEDS: SUCRALFATE SUSP 1GM/10ML UD PO SCH ×5 (00:06→21:23)
[2021-10-15] MEDS: POTASSIUM CHLORIDE INJ 30 MEQ in LR 1,000 ML IV SCH ×3 (00:07→08:48)
[2021-10-15 00:09] LABS: BLOOD UREA NITROGEN 42 MG/DL (7-18); CALCIUM LEVEL 7.6 MG/DL (8.5-10.1); CARBON DIOXIDE LEVEL 43 MEQ/L (21-32); CHLORIDE LEVEL 82 MEQ/L (98-107); CREATININE FOR GFR 0.95 MG/DL (0.70-1.30); GLOMERULAR FILTRATION RATE > 60.0 (>56); GLUCOSE, FASTING 109 MG/DL (70-100); SODIUM LEVEL 130 MEQ/L (136-145)
[2021-10-15 00:20] LABS: POTASSIUM SERUM 2.5 MEQ/L (3.5-5.1)
[2021-10-15] MEDS ORDERED: [UNRECOGNIZED DRUG - CODE] IV (00:31)
[2021-10-15] MEDS ORDERED: NS 500 ML IV ONE (06:10)
[2021-10-15] MEDS: ENOXAPARIN 30MG/0.3ML SYRINGE (J1650 PER 10MG) SC SCH (08:48)
[2021-10-15] MEDS: ASPIRIN 81MG ENTERIC TABLET PO SCH (08:48)
[2021-10-15] MEDS: ATORVASTATIN 20 MG TAB PO SCH (08:49)
[2021-10-15 08:59] LABS: HEMATOCRIT 33.4 % (42.0-52.0); HEMOGLOBIN 11.8 g/dl (13.5-17.5); MEAN CORPUSCULAR HEMOGLOBIN 30.9 pg (27.0-33.0); MEAN CORPUSCULAR HGB CONC 35.3 g/dl (32.0-36.5); MEAN CORPUSCULAR VOLUME 87.4 fl (80.0-96.0); RED BLOOD COUNT 3.82 10^6/uL (4.30-6.10); WHITE BLOOD COUNT 5.9 10^3/uL (4.0-10.0)
[2021-10-15] MEDS ORDERED: PANTOPRAZOLE 40MG VIAL IV SCH (09:00)
[2021-10-15 09:04] LABS: PLATELET COUNT, AUTOMATED 97 10^3/uL (150-450)
[2021-10-15 09:31] LABS: ALBUMIN 2.3 GM/DL (3.2-5.2); ALT/SGPT 30 U/L (12-78); BILIRUBIN,TOTAL 0.7 MG/DL (0.2-1.0); BLOOD UREA NITROGEN 34 MG/DL (7-18); CALCIUM LEVEL 7.8 MG/DL (8.5-10.1); CARBON DIOXIDE LEVEL 41 MEQ/L (21-32); CHLORIDE LEVEL 91 MEQ/L (98-107); CREATININE FOR GFR 0.72 MG/DL (0.70-1.30); GLOMERULAR FILTRATION RATE > 60.0 (>56); GLUCOSE, FASTING 93 MG/DL (70-100); MAGNESIUM LEVEL 1.9 MG/DL (1.8-2.4); POTASSIUM SERUM 3.1 MEQ/L (3.5-5.1); SODIUM LEVEL 133 MEQ/L (136-145)
[2021-10-15] MEDS ORDERED: POTASSIUM CHLORIDE 10MEQ SR TABLET PO ONE ×4 (09:45→15:40)
[2021-10-15] MEDS ORDERED: SODIUM CHLORIDE 0.9% INJ 10 ML SYR IV PRN (11:10)
[2021-10-15 15:33] LABS: BLOOD UREA NITROGEN 34 MG/DL (7-18); CALCIUM LEVEL 7.6 MG/DL (8.5-10.1); CARBON DIOXIDE LEVEL 41 MEQ/L (21-32); CHLORIDE LEVEL 92 MEQ/L (98-107); CREATININE FOR GFR 0.73 MG/DL (0.70-1.30); GLOMERULAR FILTRATION RATE > 60.0 (>56); GLUCOSE, FASTING 96 MG/DL (70-100); POTASSIUM SERUM 3.1 MEQ/L (3.5-5.1); SODIUM LEVEL 133 MEQ/L (136-145)
[2021-10-15] MEDS ORDERED: SENOKOT S TAB PO PRN (15:40)
[2021-10-15] MEDS ORDERED: MOM 30ML SUSPENSION UDC PO PRN (15:40)
[2021-10-15] MEDS ORDERED: BISACODYL 10 MG SUPP PR ONE (15:40)
[2021-10-15] MEDS ORDERED: BISACODYL 10 MG SUPP PR PRN (15:40)
[2021-10-15] MEDS: KCL 10MEQ/100ML SWI (KRUN) 10 MEQ in IV 1 EA IV SCH ×2 (17:16→18:25)
[2021-10-15 21:45] VITALS: BP 99/60
[2021-10-16 00:06] VITALS: BP 112/57
[2021-10-16 04:00] VITALS: BP_SYST 114; BP_SYST 119; BP_DIAS 58; BP_DIAS 65
[2021-10-16 05:54] LABS: HEMATOCRIT 34.4 % (42.0-52.0); MEAN CORPUSCULAR HEMOGLOBIN 30.1 pg (27.0-33.0); MEAN CORPUSCULAR HGB CONC 34.9 g/dl (32.0-36.5); MEAN CORPUSCULAR VOLUME 86.2 fl (80.0-96.0); RED BLOOD COUNT 3.99 10^6/uL (4.30-6.10); WHITE BLOOD COUNT 2.8 10^3/uL (4.0-10.0)
[2021-10-16 05:57] LABS: PLATELET COUNT, AUTOMATED 93 10^3/uL (150-450)
[2021-10-16 06:10] LABS: BLOOD UREA NITROGEN 28 MG/DL (7-18); CARBON DIOXIDE LEVEL 36 MEQ/L (21-32); CHLORIDE LEVEL 94 MEQ/L (98-107); CREATININE FOR GFR 0.55 MG/DL (0.70-1.30); GLOMERULAR FILTRATION RATE > 60.0 (>56); GLUCOSE, FASTING 94 MG/DL (70-100); MAGNESIUM LEVEL 1.7 MG/DL (1.8-2.4); SODIUM LEVEL 134 MEQ/L (136-145)
[2021-10-16 06:51] LABS: ATYPICAL LYMPH 1 % (0-5); EOSINOPHILS 2 % (0-3); LYMPHOCYTES 13 % (16-44); MONOCYTES 4 % (0-5); NEUTROPHILS 71 % (28-66)
[2021-10-16 06:52] LABS: ANISOCYTOSIS 1+; PLATELET ESTIMATE DECREASED (NORMAL); POIKILOCYTOSIS 1+
[2021-10-16 06:54] LABS: SPHEROCYTES 1+
[2021-10-16] MEDS ORDERED: POTASSIUM CHLORIDE 10MEQ SR TABLET PO ONE ×3 (06:55→14:00)
[2021-10-16] MEDS: SUCRALFATE SUSP 1GM/10ML UD PO SCH ×2 (07:51→11:22)
[2021-10-16] MEDS: MAG SULF 1GM/100ML (MAG RUN) 1 GM in IV 1 EA IV SCH ×2 (07:51→09:06)
[2021-10-16 08:05] VITALS: BP 103/63
[2021-10-16] MEDS ORDERED: SODIUM CHLORIDE 0.9% INJ 10 ML SYR IV SCH (09:00)
[2021-10-16] MEDS ORDERED: OMEPRAZOLE 20MG CAP PO SCH (09:00)
[2021-10-16] MEDS: ENOXAPARIN 30MG/0.3ML SYRINGE (J1650 PER 10MG) SC SCH (09:00)
[2021-10-16] MEDS: ATORVASTATIN 20 MG TAB PO SCH (09:07)
[2021-10-16] MEDS: ASPIRIN 81MG ENTERIC TABLET PO SCH (09:07)
[2021-10-16 12:23] VITALS: BP 110/62
[2021-10-16 14:24] LABS: POTASSIUM SERUM 3.4 MEQ/L (3.5-5.1)
[2021-10-27] MEDS ORDERED: POTA-151 PO (09:58)
== END 2021-10-16 16:47 | disposition home or self-care (01) ==
LOC: M ED 18:32 → M ED INP 18:33 → M PCU 10-15 21:08
PROVIDERS: ADMIT Family Medicine; ATTEND Family Medicine
DX: E87.6 Hypokalemia (principal); R11.2 Nausea with vomiting, unspecified; T45.1X5A Adverse effect of antineoplastic and immunosuppressive drugs, initial encounter; R19.7 Diarrhea, unspecified; E86.1 Hypovolemia; I95.2 Hypotension due to drugs; E86.0 Dehydration; E87.3 Alkalosis; E87.1 Hypo-osmolality and hyponatremia; E83.42 Hypomagnesemia; D61.810 Antineoplastic chemotherapy induced pancytopenia; J98.11 Atelectasis; R09.02 Hypoxemia; C17.0 Malignant neoplasm of duodenum; C78.7 Secondary malignant neoplasm of liver and intrahepatic bile duct; C78.00 Secondary malignant neoplasm of unspecified lung; E78.5 Hyperlipidemia, unspecified; J44.9 Chronic obstructive pulmonary disease, unspecified; K21.9 Gastro-esophageal reflux disease without esophagitis; Z79.82 Long term (current) use of aspirin; Z79.899 Other long term (current) drug therapy; Z88.8 Allergy status to other drugs, medicaments and biological substances; Z87.891 Personal history of nicotine dependence
CPT/HCPCS: 36415; 36600; 71045; 80053; 80076; 82803; 83605; 83690; 83735; 83880; 84132; 84436; 84443; 84484; 85025; 85027; 85049; 85055; 87040; 87798; 93005; 93041; 96361; 96374; 96376; 97161; 99285; C9113; J1642; J1650; J3475

== ENCOUNTER → 2021-11-01 | Outpatient (CLI) | payer BC ==
[~2021-11-01] MED LIST changes: +ASPI-161 PO; +[UNRECOGNIZED DRUG - CODE] IV
== END ==
LOC: M RAD 14:54
PROVIDERS: ATTEND Specialist
DX: R22.42 Localized swelling, mass and lump, left lower limb (principal)

== ENCOUNTER 2021-11-11 21:00 | Emergency (ER) | payer BC ==
[~2021-11-11] VITALS: Ht 182.9 cm; Wt 62.6 kg
[2021-11-11] MEDS ORDERED: ONDANSETRON 4MG/2ML VIAL IV ONE (22:35)
[2021-11-11] MEDS ORDERED: MORPHINE 4 MG/ML 1ML VIAL/SYRINGE IV ONE (22:35)
[2021-11-11 22:40] LABS: HEMATOCRIT 34.5 % (42.0-52.0); HEMOGLOBIN 11.6 g/dl (13.5-17.5); MEAN CORPUSCULAR HGB CONC 33.6 g/dl (32.0-36.5); MEAN CORPUSCULAR VOLUME 89.1 fl (80.0-96.0); PLATELET COUNT, AUTOMATED 129 10^3/uL (150-450); RED BLOOD COUNT 3.87 10^6/uL (4.30-6.10); WHITE BLOOD COUNT 6.5 10^3/uL (4.0-10.0)
[2021-11-11 22:56] LABS: BASOPHILS 2 % (0-1); EOSINOPHILS 2 % (0-3); LYMPHOCYTES 25 % (16-44); MONOCYTES 12 % (0-5); NEUTROPHILS 59 % (28-66)
[2021-11-11 22:57] LABS: ANISOCYTOSIS 1+; PLATELET ESTIMATE DECREASED (NORMAL)
[2021-11-11 22:59] LABS: ALBUMIN 2.8 GM/DL (3.2-5.2); ALT/SGPT 19 U/L (12-78); BILIRUBIN,DIRECT 0.2 MG/DL (0.0-0.2); BILIRUBIN,TOTAL 0.6 MG/DL (0.2-1.0); BLOOD UREA NITROGEN 28 MG/DL (7-18); CARBON DIOXIDE LEVEL 37 MEQ/L (21-32); CHLORIDE LEVEL 99 MEQ/L (98-107); GLOMERULAR FILTRATION RATE > 60.0 (>56); GLUCOSE, FASTING 121 MG/DL (70-100); LIPASE 353 U/L (73-393); POTASSIUM SERUM 3.2 MEQ/L (3.5-5.1); SODIUM LEVEL 138 MEQ/L (136-145); TOTAL PROTEIN 6.4 GM/DL (6.4-8.2)
[2021-11-11] MEDS ORDERED: AMLO-140 PO (23:32)
[2021-11-12] MEDS ORDERED: ONDANSETRON 4MG/2ML VIAL IV ONE (02:35)
[2021-11-12] MEDS: GASTROGRAFIN SOLUTION 30ML PO SCH ×2 (02:58→03:30)
[2021-11-12] MEDS ORDERED: ISOVUE-370 76% 100ML VIAL As Ordered ONE (03:09)
[2021-11-12] MEDS ORDERED: MORPHINE 10 MG/ML 1ML VIAL As Ordered ONE ×2 (03:59→05:16)
[2021-11-12] MEDS ORDERED: METOCLOPRAMIDE INJ 10MG/2ML VIAL (J2765 PER 1) IV ONE (04:15)
[2021-11-12] MEDS: MORPHINE 4 MG/ML 1ML VIAL/SYRINGE IV PRN ×2 (04:23→07:00)
[2021-11-12 06:09] LABS: RSV AMPLIFICATION NEGATIVE (NEGATIVE)
[2021-11-12] MEDS ORDERED: KCL 20MEQ in NS 1000ML 1,000 ML IV SCH (06:40)
[2021-11-12 09:17] VITALS: BP 107/64
== END 2021-11-12 09:15 | disposition short-term general hospital (02) ==
LOC: M ED 21:00
DX: K56.609 Unspecified intestinal obstruction, unspecified as to partial versus complete obstruction (principal); J18.9 Pneumonia, unspecified organism; I10 Essential (primary) hypertension; C17.0 Malignant neoplasm of duodenum; C78.7 Secondary malignant neoplasm of liver and intrahepatic bile duct; C78.00 Secondary malignant neoplasm of unspecified lung; F17.200 Nicotine dependence, unspecified, uncomplicated; Z97.8 Presence of other specified devices; Z79.82 Long term (current) use of aspirin; Z79.899 Other long term (current) drug therapy; Z88.4 Allergy status to anesthetic agent
CPT/HCPCS: 71045; 71260; 74177; 80048; 80076; 83690; 85025; 87631; 93041; 96365; 96366; 96375; 96376; 99285; J2270; J2405; J2765; Q9963; Q9967

== ENCOUNTER → 2021-12-02 | Outpatient (REF) | payer BC ==
[~2021-12-02] MED LIST changes: +AMLO-140 PO
[2021-12-02 12:16] LABS: BLOOD UREA NITROGEN 17 MG/DL (7-18); CALCIUM LEVEL 9.1 MG/DL (8.5-10.1); CARBON DIOXIDE LEVEL 30 MEQ/L (21-32); CHLORIDE LEVEL 105 MEQ/L (98-107); CREATININE FOR GFR 0.66 MG/DL (0.70-1.30); GLOMERULAR FILTRATION RATE > 60.0 (>56); GLUCOSE, FASTING 83 MG/DL (70-100); POTASSIUM SERUM 3.8 MEQ/L (3.5-5.1); SODIUM LEVEL 141 MEQ/L (136-145)
== END ==
LOC: M SFHCCLAY 08:44
PROVIDERS: ATTEND Family Medicine
DX: I11.9 Hypertensive heart disease without heart failure (principal)

== ENCOUNTER → 2022-02-23 | Outpatient (CLI) | payer BC ==
[~2022-02-23] MED LIST changes: +ISOVUE-370 76% 100ML VIAL As Ordered ONE
== END ==
LOC: M RAD 07:58
PROVIDERS: ATTEND Internal Medicine Pulmonary Disease
DX: R91.8 Other nonspecific abnormal finding of lung field (principal); K76.89 Other specified diseases of liver
CPT/HCPCS: 71260; Q9967

== ENCOUNTER → 2022-03-23 | Outpatient (CLI) | payer BC ==
[~2022-03-23] MED LIST changes: +GASTROGRAFIN SOLUTION 30ML (Q9963) As Ordered ONE
== END ==
LOC: M RAD 09:22
PROVIDERS: ATTEND Nurse Practitioner
DX: C18.9 Malignant neoplasm of colon, unspecified (principal); C78.00 Secondary malignant neoplasm of unspecified lung
CPT/HCPCS: 74177; Q9963; Q9967

== ENCOUNTER 2022-04-16 21:36 | Emergency (ER) | payer BC, SELFPAY ==
[~2022-04-16] VITALS: Ht 182.9 cm; Wt 68.9 kg
[~2022-04-16 21:36] MED LIST changes: -GASTROGRAFIN SOLUTION 30ML (Q9963) As Ordered ONE; -ISOVUE-370 76% 100ML VIAL As Ordered ONE
[2022-04-16] MEDS ORDERED: VARE1TAB2 (21:51)
[2022-04-16] MEDS ORDERED: AMLO1TAB24 (21:54)
[2022-04-16] MEDS ORDERED: TRIA50CA41 (21:54)
[2022-04-16 22:27] LABS: BASO # 0.1 10^3/uL (0.0-0.2); BASO % 0.6 % (0.0-1.0); EOS # 0.1 10^3/uL (0.0-0.5); EOS % 1.2 % (0.0-3.0); HEMATOCRIT 41.4 % (42.0-52.0); HEMOGLOBIN 14.1 g/dl (13.5-17.5); LYMPH % 18.4 % (24.0-44.0); MEAN CORPUSCULAR HEMOGLOBIN 31.2 pg (27.0-33.0); MEAN CORPUSCULAR HGB CONC 34.1 g/dl (32.0-36.5); MEAN CORPUSCULAR VOLUME 91.6 fl (80.0-96.0); MONO # 1.3 10^3/uL (0.0-0.8); MONO % 11.5 % (2.0-8.0); NEUTROPHILS # 7.4 10^3/uL (1.5-8.5); PLATELET COUNT, AUTOMATED 152 10^3/uL (150-450); RED BLOOD COUNT 4.52 10^6/uL (4.30-6.10); WHITE BLOOD COUNT 10.9 10^3/uL (4.0-10.0)
[2022-04-16 22:32] LABS: ALBUMIN 3.5 GM/DL (3.2-5.2); ALT/SGPT 19 U/L (12-78); BILIRUBIN,DIRECT 0.1 MG/DL (0.0-0.2); BILIRUBIN,TOTAL 0.3 MG/DL (0.2-1.0); BLOOD UREA NITROGEN 25 MG/DL (7-18); CALCIUM LEVEL 9.1 MG/DL (8.5-10.1); CARBON DIOXIDE LEVEL 28 MEQ/L (21-32); CHLORIDE LEVEL 108 MEQ/L (98-107); CREATININE FOR GFR 0.98 MG/DL (0.70-1.30); GLOMERULAR FILTRATION RATE > 60.0 (>56); GLUCOSE, FASTING 111 MG/DL (70-100); LIPASE 157 U/L (73-393); POTASSIUM SERUM 3.7 MEQ/L (3.5-5.1); SODIUM LEVEL 141 MEQ/L (136-145)
[2022-04-16] MEDS ORDERED: GASTROGRAFIN SOLUTION 30ML PO SCH (22:55)
[2022-04-16] MEDS: GASTROGRAFIN SOLUTION 30ML PO SCH ×2 (23:18→23:45)
[2022-04-17] MEDS ORDERED: ISOVUE-370 76% 100ML VIAL As Ordered ONE (00:30)
[2022-04-17 03:00] VITALS: BP 148/87
[2022-04-17] MEDS ORDERED: MAGNESIUM CITRATE 300 ML BTL PO ONE (03:10)
[2022-04-17] MEDS ORDERED: COLA100C5 PO (03:13)
== END 2022-04-17 03:25 | disposition home or self-care (01) ==
LOC: M ED 21:36 → EDBD 21:36 → M ED 04-17 03:25
DX: K59.00 Constipation, unspecified (principal); I10 Essential (primary) hypertension; C17.0 Malignant neoplasm of duodenum; F17.200 Nicotine dependence, unspecified, uncomplicated; R91.8 Other nonspecific abnormal finding of lung field; Z79.82 Long term (current) use of aspirin; Z79.899 Other long term (current) drug therapy; Z88.4 Allergy status to anesthetic agent
CPT/HCPCS: 74177; 80048; 80076; 83690; 85025; 87486; 87581; 87633; 87798; 99285; Q9963; Q9967

== ENCOUNTER → 2022-06-17 | Outpatient (CLI) | payer BC, MEDICAID ==
[~2022-06-17] MED LIST changes: +AMLO1TAB24; +COLA100C5 PO; +TRIA50CA41; +VARE1TAB2
== END ==
LOC: M PLAIMG 10:40
PROVIDERS: ATTEND Internal Medicine Pulmonary Disease
DX: C17.0 Malignant neoplasm of duodenum (principal); C78.01 Secondary malignant neoplasm of right lung; C78.02 Secondary malignant neoplasm of left lung

== ENCOUNTER 2022-07-30 17:54 | Inpatient (IN) | payer BC, OTHER ==
[~2022-07-30] VITALS: Ht 182.9 cm; Wt 68.2 kg
[~2022-07-30 17:54] MED LIST changes: -TRIA50CA41; +TRIA50CA41 PO
[2022-07-30] MEDS ORDERED: NS 1,000 ML IV ONE (19:30)
[2022-07-30 20:05] LABS: BASO # 0.1 10^3/uL (0.0-0.2); BASO % 0.6 % (0.0-1.0); EOS % 0.3 % (0.0-3.0); HEMATOCRIT 46.2 % (42.0-52.0); HEMOGLOBIN 15.7 g/dl (13.5-17.5); LYMPH # 1.5 10^3/uL (1.5-5.0); LYMPH % 15.7 % (24.0-44.0); MEAN CORPUSCULAR HEMOGLOBIN 31.2 pg (27.0-33.0); MEAN CORPUSCULAR VOLUME 91.7 fl (80.0-96.0); MONO # 0.8 10^3/uL (0.0-0.8); MONO % 8.5 % (2.0-8.0); NEUTROPHILS # 7.2 10^3/uL (1.5-8.5); NEUTROPHILS % 74.3 % (36.0-66.0); PLATELET COUNT, AUTOMATED 154 10^3/uL (150-450); RED BLOOD COUNT 5.04 10^6/uL (4.30-6.10); WHITE BLOOD COUNT 9.7 10^3/uL (4.0-10.0)
[2022-07-30 20:28] LABS: CK-MB VALUE MASS < 1.0 NG/ML (<3.6)
[2022-07-30 20:31] LABS: ALBUMIN 4.2 G/DL (3.2-5.2); ALKALINE PHOSPHATASE 110 U/L (46-116); ALT/SGPT 21 U/L (7.0-40); AST/SGOT 28 U/L (<34); BILIRUBIN,DIRECT 0.1 MG/DL (<0.4); BILIRUBIN,TOTAL 0.5 MG/DL (0.3-1.2); BLOOD UREA NITROGEN 46 MG/DL (9-23); CALCIUM LEVEL 9.8 MG/DL (8.5-10.1); CARBON DIOXIDE LEVEL 37 MMOL/L (20-31); CHLORIDE LEVEL 91 MMOL/L (98-107); CREATININE FOR GFR 1.69 MG/DL (0.70-1.30); GLOMERULAR FILTRATION RATE 44.9 (>56); GLUCOSE, FASTING 106 MG/DL (60-100); POTASSIUM SERUM 3.6 MMOL/L (3.5-5.1); SODIUM LEVEL 142 MMOL/L (136-145); TOTAL PROTEIN 8.1 G/DL (5.7-8.2)
[2022-07-30 20:41] LABS: CPK CREATINE PHOSPHOKINASE 87 U/L (46-171); MB/CK RELATIVE INDEX 1.14 (< OR =4)
[2022-07-30] MEDS ORDERED: AMLO1TAB25 PO (21:10)
[2022-07-30] MEDS ORDERED: OMEP-173 PO (21:10)
[2022-07-30] MEDS ORDERED: HOME MED LIST COMPLETE! XX SCH (21:15)
[2022-07-30 21:59] LABS: CK-MB VALUE MASS < 1.0 NG/ML (<3.6)
[2022-07-30 22:02] LABS: CPK CREATINE PHOSPHOKINASE 106 U/L (46-171); MB/CK RELATIVE INDEX 0.94 (< OR =4)
[2022-07-30] MEDS ORDERED: HEPARIN SOD (PORCINE) 5000UNITS/ML 1ML VIAL/SYRINGE SC SCH (23:00)
[2022-07-30] MEDS ORDERED: PROMETHAZINE 25MG/ML 1ML VIAL IV PRN ×2 (23:10→23:20)
[2022-07-30] MEDS ORDERED: NS 1,000 ML IV SCH (23:10)
[2022-07-31] MEDS: HEPARIN SOD (PORCINE) 5000UNITS/ML 1ML VIAL/SYRINGE SC SCH ×2 (00:18→07:22)
[2022-07-31] MEDS ORDERED: SUCRALFATE SUSP 1GM/10ML UD PO SCH (07:30)
[2022-07-31 07:38] LABS: ALBUMIN 3.7 G/DL (3.2-5.2); BILIRUBIN,TOTAL 0.6 MG/DL (0.3-1.2); CALCIUM LEVEL 8.8 MG/DL (8.5-10.1); CREATININE FOR GFR 1.43 MG/DL (0.70-1.30); GLOMERULAR FILTRATION RATE 54.5 (>56); POTASSIUM SERUM 3.1 MMOL/L (3.5-5.1); TOTAL PROTEIN 7.1 G/DL (5.7-8.2)
[2022-07-31 07:48] VITALS: BP 118/68
[2022-07-31] MEDS ORDERED: KCL 40MEQ in NS 1000ML 1,000 ML IV SCH (08:11)
[2022-07-31] MEDS: SUCRALFATE SUSP 1GM/10ML UD PO SCH ×2 (08:45→11:32)
[2022-07-31] MEDS ORDERED: PANTOPRAZOLE 40MG VIAL IV SCH (09:00)
[2022-07-31] MEDS ORDERED: ASPIRIN 81MG ENTERIC TABLET PO SCH (09:00)
[2022-07-31] MEDS ORDERED: OMEPRAZOLE 20MG CAP PO SCH (09:00)
[2022-07-31] MEDS ORDERED: POTASSIUM CHLORIDE 10MEQ SR TABLET PO ONE (11:20)
[2022-07-31] MEDS ORDERED: NS 1,000 ML IV ONE (11:20)
[2022-07-31] MEDS ORDERED: SODIUM CHLORIDE 0.9% INJ 10 ML SYR IV PRN (12:40)
[2022-08-01] MEDS ORDERED: SODIUM CHLORIDE 0.9% INJ 10 ML SYR IV SCH (09:00)
== END 2022-07-31 13:33 | disposition home or self-care (01) | DRG 469 ==
LOC: M ED 17:54 → M ED INP 22:38 → ENRESERV 07-31 07:05 → M MSPAV 07-31 08:12
PROVIDERS: ADMIT Family Medicine; ATTEND Internal Medicine Nephrology
DX: N17.9 Acute kidney failure, unspecified (principal); E86.0 Dehydration; C17.0 Malignant neoplasm of duodenum; C78.7 Secondary malignant neoplasm of liver and intrahepatic bile duct; C78.00 Secondary malignant neoplasm of unspecified lung; I10 Essential (primary) hypertension; E87.6 Hypokalemia; K21.9 Gastro-esophageal reflux disease without esophagitis; J44.9 Chronic obstructive pulmonary disease, unspecified; R11.2 Nausea with vomiting, unspecified; F17.210 Nicotine dependence, cigarettes, uncomplicated; Z79.899 Other long term (current) drug therapy; Z80.0 Family history of malignant neoplasm of digestive organs; Z79.82 Long term (current) use of aspirin; Z88.8 Allergy status to other drugs, medicaments and biological substances; Z20.822 Contact with and (suspected) exposure to COVID-19

== ENCOUNTER → 2022-08-24 | Outpatient (REF) | payer BC, MEDICAID ==
[~2022-08-24] MED LIST changes: +OMEP-173 PO
[2022-08-25 15:06] LABS: URINE TOTAL PROTEIN 71.1 MG/DL (0-14)
[2022-08-25 15:23] LABS: TOTAL PROTEIN 24 HOUR URINE 1119.8 MG/24HR (50-80)
== END ==
LOC: M LAB REF 14:40
PROVIDERS: ATTEND Internal Medicine Hematology & Oncology
DX: C18.9 Malignant neoplasm of colon, unspecified (principal)

== ENCOUNTER → 2022-08-24 | Outpatient (CLI) | payer BC, MEDICAID ==
[~2022-08-24] MED LIST changes: +GASTROGRAFIN SOLUTION 30ML As Ordered ONE; +ISOVUE-370 76% 100ML VIAL As Ordered ONE
== END ==
LOC: M RAD 13:25
PROVIDERS: ATTEND Nurse Practitioner
DX: C18.9 Malignant neoplasm of colon, unspecified (principal)

== ENCOUNTER 2022-09-27 12:56 | Inpatient (IN) | payer BC, MEDICAID ==
[~2022-09-27] VITALS: Ht 182.9 cm; Wt 67.3 kg
[~2022-09-27 12:56] MED LIST changes: +AMLO10TA PO; -GASTROGRAFIN SOLUTION 30ML As Ordered ONE; -ISOVUE-370 76% 100ML VIAL As Ordered ONE
[2022-09-27] MEDS ORDERED: ONDANSETRON 4MG 2ML VIAL IV ONE (15:00)
[2022-09-27] MEDS: NS 1,000 ML IV SCH ×2 (15:05→21:51)
[2022-09-27 15:12] LABS: HEMATOCRIT 45.2 % (42.0-52.0); HEMOGLOBIN 15.5 g/dl (13.5-17.5); MEAN CORPUSCULAR HGB CONC 34.3 g/dl (32.0-36.5); MEAN CORPUSCULAR VOLUME 90.4 fl (80.0-96.0); PLATELET COUNT, AUTOMATED 129 10^3/uL (150-450); WHITE BLOOD COUNT 12.6 10^3/uL (4.0-10.0)
[2022-09-27 15:37] LABS: LIPASE 37 U/L (12-53)
[2022-09-27 15:43] LABS: ALBUMIN 3.8 G/DL (3.2-5.2); ALKALINE PHOSPHATASE 116 U/L (46-116); ALT/SGPT 28 U/L (7.0-40); AST/SGOT 34 U/L (<34); BILIRUBIN,DIRECT 0.2 MG/DL (<0.4); BILIRUBIN,TOTAL 0.7 MG/DL (0.3-1.2); BLOOD UREA NITROGEN 40 MG/DL (9-23); CALCIUM LEVEL 9.3 MG/DL (8.5-10.1); CARBON DIOXIDE LEVEL 35 MMOL/L (20-31); CHLORIDE LEVEL 95 MMOL/L (98-107); CREATININE FOR GFR 0.75 MG/DL (0.70-1.30); GLOMERULAR FILTRATION RATE > 60.0 (>56); GLUCOSE, FASTING 111 MG/DL (60-100); POTASSIUM SERUM 3.1 MMOL/L (3.5-5.1); SODIUM LEVEL 140 MMOL/L (136-145); TOTAL PROTEIN 7.9 G/DL (5.7-8.2)
[2022-09-27] MEDS ORDERED: POTASSIUM CHLORIDE 10MEQ SR TABLET PO ONE (15:45)
[2022-09-27 16:11] LABS: ATYPICAL LYMPH 5 % (0-5); BASOPHILS 1 % (0-1); LYMPHOCYTES 14 % (16-44); MONOCYTES 5 % (0-5); NEUTROPHILS 75 % (28-66); PLATELET ESTIMATE DECREASED (NORMAL)
[2022-09-27] MEDS ORDERED: ISOVUE-370 76% 100ML VIAL As Ordered ONE (18:31)
[2022-09-27 18:33] LABS: RSV AMPLIFICATION NEGATIVE (NEGATIVE)
[2022-09-27] MEDS ORDERED: PIPERACILLIN/TAZOBACTAM SOD 4.5 GM in D5W MINI-BAG PLUS 50 ML IV ONE (19:30)
[2022-09-27] MEDS ORDERED: VANCOMYCIN HCL 1,000 MG, VIAL MATE ADAPTER 1 EACH in NS 250 ML IV ONE (19:30)
[2022-09-27 20:03] LABS: ABG BASE EXCESS 9.8 (-2.0-2.0); ABG O2 SATURATION 92.5 % (95.0-99.0); ABG PARTIAL PRESSURE CO2 48.8 mmHg (35.0-45.0); ABG PARTIAL PRESSURE O2 61.4 mmHg (75.0-100.0); ABG STANDARD HCO3 33.4 MEQ/L (22.0-26.0); ABG TOTAL CO2 36.5 MEQ/L (22.0-29.0); ABG pH (ARTERIAL) 7.474 UNITS (7.350-7.450)
[2022-09-27] MEDS ORDERED: SUCR1TA PO (20:45)
[2022-09-27] MEDS ORDERED: AMLO1TAB25 PO (20:45)
[2022-09-27] MEDS ORDERED: POTA1TAB14 PO (20:45)
[2022-09-27] MEDS ORDERED: HOME MED LIST COMPLETE! XX SCH (20:50)
[2022-09-27] MEDS ORDERED: NS 1,000 ML IV ONE (21:35)
[2022-09-27 23:30] VITALS: BP 142/94
[2022-09-28] MEDS: IPRATROPIUM 0.5MG/ALBUTEROL 2.5MG INH SOL UD 3ML (DUONEB) INH SCH ×4 (02:00→20:17)
[2022-09-28] MEDS ORDERED: ONDANSETRON 4MG 2ML VIAL IV PRN (02:10)
[2022-09-28] MEDS ORDERED: NS 1,000 ML IV ONE (02:10)
[2022-09-28] MEDS ORDERED: ALBUTEROL SULFATE 2.5MG/0.5ML INH NEB SOLN INH PRN (02:10)
[2022-09-28] MEDS ORDERED: NS 1,000 ML IV SCH (02:10)
[2022-09-28] MEDS: PANTOPRAZOLE 40MG VIAL IV SCH (03:18)
[2022-09-28] MEDS ORDERED: PROMETHAZINE 25MG/ML 1ML VIAL IV PRN (05:00)
[2022-09-28] MEDS: PIPERACILLIN/TAZOBACTAM SOD 4.5 GM in D5W MINI-BAG PLUS 50 ML IV SCH ×4 (05:12→21:17)
[2022-09-28] MEDS: HEPARIN SOD (PORCINE) 5000UNITS/ML 1ML VIAL/SYRINGE SC SCH ×3 (05:12→21:17)
[2022-09-28 06:17] VITALS: BP 131/82
[2022-09-28] MEDS ORDERED: NICOTINE POLACRILEX 2 MG GUM PO PRN (07:25)
[2022-09-28 08:13] LABS: HEMATOCRIT 40.8 % (42.0-52.0); MEAN CORPUSCULAR HEMOGLOBIN 30.7 pg (27.0-33.0); MEAN CORPUSCULAR HGB CONC 32.6 g/dl (32.0-36.5); MEAN CORPUSCULAR VOLUME 94.2 fl (80.0-96.0); PLATELET COUNT, AUTOMATED 127 10^3/uL (150-450); RED BLOOD COUNT 4.33 10^6/uL (4.30-6.10); WHITE BLOOD COUNT 11.4 10^3/uL (4.0-10.0)
[2022-09-28 08:15] LABS: HEMOGLOBIN 13.3 g/dl (13.5-17.5)
[2022-09-28 08:57] LABS: ALBUMIN 3.1 G/DL (3.2-5.2); ALKALINE PHOSPHATASE 96 U/L (46-116); ALT/SGPT 24 U/L (7.0-40); AST/SGOT 24 U/L (<34); BILIRUBIN,TOTAL 0.6 MG/DL (0.3-1.2); BLOOD UREA NITROGEN 36 MG/DL (9-23); CALCIUM LEVEL 7.9 MG/DL (8.5-10.1); CARBON DIOXIDE LEVEL 31 MMOL/L (20-31); CHLORIDE LEVEL 105 MMOL/L (98-107); CREATININE FOR GFR 0.71 MG/DL (0.70-1.30); GLOMERULAR FILTRATION RATE > 60.0 (>56); GLUCOSE, FASTING 98 MG/DL (60-100); POTASSIUM SERUM 3.4 MMOL/L (3.5-5.1); SODIUM LEVEL 142 MMOL/L (136-145); TOTAL PROTEIN 6.6 G/DL (5.7-8.2)
[2022-09-28] MEDS: NICOTINE 14 MG/24 HR TRANSDERMAL TD SCH (09:00)
[2022-09-28 14:00] VITALS: BP 132/76
[2022-09-28 19:40] VITALS: BP 158/91
[2022-09-29] MEDS: IPRATROPIUM 0.5MG/ALBUTEROL 2.5MG INH SOL UD 3ML (DUONEB) INH SCH ×2 (02:00→07:34)
[2022-09-29] MEDS: PANTOPRAZOLE 40MG VIAL IV SCH (05:08)
[2022-09-29] MEDS: PIPERACILLIN/TAZOBACTAM SOD 4.5 GM in D5W MINI-BAG PLUS 50 ML IV SCH ×2 (05:08→09:21)
[2022-09-29] MEDS: HEPARIN SOD (PORCINE) 5000UNITS/ML 1ML VIAL/SYRINGE SC SCH (05:09)
[2022-09-29 05:16] VITALS: BP 141/94
[2022-09-29 07:04] LABS: BLOOD UREA NITROGEN 21 MG/DL (9-23); CALCIUM LEVEL 7.9 MG/DL (8.5-10.1); CARBON DIOXIDE LEVEL 30 MMOL/L (20-31); CHLORIDE LEVEL 104 MMOL/L (98-107); CREATININE FOR GFR 0.71 MG/DL (0.70-1.30); GLOMERULAR FILTRATION RATE > 60.0 (>56); GLUCOSE, FASTING 92 MG/DL (60-100); POTASSIUM SERUM 3.6 MMOL/L (3.5-5.1); SODIUM LEVEL 139 MMOL/L (136-145)
[2022-09-29] MEDS ORDERED: NICO14PA TD (07:29)
[2022-09-29] MEDS ORDERED: MOXI1TAB PO (07:29)
[2022-09-29] MEDS ORDERED: BACI1CAP PO (07:29)
[2022-09-29 07:40] LABS: HEMATOCRIT 38.2 % (42.0-52.0); HEMOGLOBIN 12.9 g/dl (13.5-17.5); MEAN CORPUSCULAR HEMOGLOBIN 31.5 pg (27.0-33.0); MEAN CORPUSCULAR HGB CONC 33.8 g/dl (32.0-36.5); MEAN CORPUSCULAR VOLUME 93.2 fl (80.0-96.0); PLATELET COUNT, AUTOMATED 131 10^3/uL (150-450); WHITE BLOOD COUNT 9.5 10^3/uL (4.0-10.0)
[2022-09-29 08:29] LABS: ATYPICAL LYMPH 3 % (0-5); EOSINOPHILS 2 % (0-3); LYMPHOCYTES 24 % (16-44); MONOCYTES 2 % (0-5); NEUTROPHILS 67 % (28-66)
[2022-09-29 08:30] LABS: PLATELET ESTIMATE DECREASED (NORMAL)
[2022-09-29 08:37] LABS: ALBUMIN 3.1 G/DL (3.2-5.2); ALKALINE PHOSPHATASE 103 U/L (46-116); ALT/SGPT 24 U/L (7.0-40); AST/SGOT 30 U/L (<34); BILIRUBIN,TOTAL 0.6 MG/DL (0.3-1.2); BLOOD UREA NITROGEN 19 MG/DL (9-23); CARBON DIOXIDE LEVEL 30 MMOL/L (20-31); CHLORIDE LEVEL 102 MMOL/L (98-107); CREATININE FOR GFR 0.67 MG/DL (0.70-1.30); GLOMERULAR FILTRATION RATE > 60.0 (>56); GLUCOSE, FASTING 96 MG/DL (60-100); MAGNESIUM LEVEL 1.9 MG/DL (1.8-2.4); POTASSIUM SERUM 3.6 MMOL/L (3.5-5.1); SODIUM LEVEL 137 MMOL/L (136-145); TOTAL PROTEIN 6.6 G/DL (5.7-8.2)
[2022-09-29] MEDS: NICOTINE 14 MG/24 HR TRANSDERMAL TD SCH (09:00)
== END 2022-09-29 12:30 | disposition home or self-care (01) | DRG 249 ==
LOC: M ED 12:56 → M ED INP 21:35 → M MS5PR 23:42
PROVIDERS: ADMIT Internal Medicine; ATTEND Internal Medicine
DX: R11.2 Nausea with vomiting, unspecified (principal); J15.6 Pneumonia due to other Gram-negative bacteria; R64 Cachexia; C78.00 Secondary malignant neoplasm of unspecified lung; C78.7 Secondary malignant neoplasm of liver and intrahepatic bile duct; J43.9 Emphysema, unspecified; C17.0 Malignant neoplasm of duodenum; T45.1X5A Adverse effect of antineoplastic and immunosuppressive drugs, initial encounter; E86.0 Dehydration; F17.210 Nicotine dependence, cigarettes, uncomplicated; R09.02 Hypoxemia; E87.6 Hypokalemia; Z20.822 Contact with and (suspected) exposure to COVID-19; Z79.899 Other long term (current) drug therapy; Z79.82 Long term (current) use of aspirin; Z88.4 Allergy status to anesthetic agent; Z71.6 Tobacco abuse counseling

== ENCOUNTER → 2022-09-30 | Outpatient (CLI) | payer BC ==
[~2022-09-30] MED LIST changes: +BACI1CAP PO; +ISOVUE-370 76% 100ML VIAL As Ordered ONE; +MOXI1TAB PO; +NICO14PA TD; +POTA1TAB14 PO; +SUCR1TA PO
== END ==
LOC: M RAD 13:27
PROVIDERS: ATTEND Specialist
DX: C17.0 Malignant neoplasm of duodenum (principal); C78.7 Secondary malignant neoplasm of liver and intrahepatic bile duct; C78.00 Secondary malignant neoplasm of unspecified lung; Z95.828 Presence of other vascular implants and grafts; J43.2 Centrilobular emphysema; R59.0 Localized enlarged lymph nodes
CPT/HCPCS: 71260; Q9967

== ENCOUNTER 2022-11-07 12:05 | Emergency (ER) | payer BC, MEDICAID ==
[~2022-11-07] VITALS: Ht 182.9 cm; Wt 70.5 kg
[~2022-11-07 12:05] MED LIST changes: -ISOVUE-370 76% 100ML VIAL As Ordered ONE; +POTA-298 PO; -POTA1TAB14 PO
[2022-11-07 13:33] LABS: BASO # 0.1 10^3/uL (0.0-0.2); BASO % 0.6 % (0.0-1.0); EOS % 0.2 % (0.0-3.0); HEMATOCRIT 47.1 % (42.0-52.0); HEMOGLOBIN 15.6 g/dl (13.5-17.5); LYMPH # 1.3 10^3/uL (1.5-5.0); LYMPH % 15.9 % (24.0-44.0); MEAN CORPUSCULAR HGB CONC 33.1 g/dl (32.0-36.5); MEAN CORPUSCULAR VOLUME 93.5 fl (80.0-96.0); MONO # 0.7 10^3/uL (0.0-0.8); MONO % 7.7 % (2.0-8.0); NEUTROPHILS # 6.3 10^3/uL (1.5-8.5); NEUTROPHILS % 74.9 % (36.0-66.0); PLATELET COUNT, AUTOMATED 174 10^3/uL (150-450); RED BLOOD COUNT 5.04 10^6/uL (4.30-6.10); WHITE BLOOD COUNT 8.4 10^3/uL (4.0-10.0)
[2022-11-07 14:01] LABS: LIPASE 21 U/L (12-53)
[2022-11-07 14:03] LABS: ALBUMIN 4.1 G/DL (3.2-5.2); ALKALINE PHOSPHATASE 113 U/L (46-116); ALT/SGPT 13 U/L (7.0-40); AST/SGOT 15 U/L (<34); BILIRUBIN,DIRECT 0.2 MG/DL (<0.4); BILIRUBIN,TOTAL 0.5 MG/DL (0.3-1.2); BLOOD UREA NITROGEN 37 MG/DL (9-23); CALCIUM LEVEL 9.8 MG/DL (8.5-10.1); CARBON DIOXIDE LEVEL 36 MMOL/L (20-31); CHLORIDE LEVEL 94 MMOL/L (98-107); GLOMERULAR FILTRATION RATE > 60.0 (>56); GLUCOSE, FASTING 126 MG/DL (60-100); POTASSIUM SERUM 3.4 MMOL/L (3.5-5.1); SODIUM LEVEL 138 MMOL/L (136-145); TOTAL PROTEIN 8.2 G/DL (5.7-8.2)
[2022-11-07] MEDS ORDERED: PROMETHAZINE 25MG/ML 1ML VIAL IV ONE (15:35)
[2022-11-07] MEDS ORDERED: NS 1,000 ML IV ONE (15:35)
[2022-11-07 16:30] VITALS: BP 146/84
[2022-11-07] MEDS ORDERED: PROM25TA12 PO (18:02)
== END 2022-11-07 18:18 | disposition home or self-care (01) ==
LOC: M ED 12:05 → EDBD 12:05 → M ED 18:18
DX: R11.2 Nausea with vomiting, unspecified (principal); T45.1X5A Adverse effect of antineoplastic and immunosuppressive drugs, initial encounter; J44.9 Chronic obstructive pulmonary disease, unspecified; C17.0 Malignant neoplasm of duodenum; C78.7 Secondary malignant neoplasm of liver and intrahepatic bile duct; C78.00 Secondary malignant neoplasm of unspecified lung; C77.9 Secondary and unspecified malignant neoplasm of lymph node, unspecified; I10 Essential (primary) hypertension; E78.5 Hyperlipidemia, unspecified; Z87.891 Personal history of nicotine dependence; Z88.8 Allergy status to other drugs, medicaments and biological substances; Z79.82 Long term (current) use of aspirin; Z79.899 Other long term (current) drug therapy
CPT/HCPCS: 80048; 80076; 83690; 85025; 96374; 99284; J2550

== ENCOUNTER 2022-11-09 16:17 | Inpatient (IN) | payer BC, MEDICAID ==
[~2022-11-09] VITALS: Ht 182.9 cm; Wt 61.9 kg
[~2022-11-09 16:17] MED LIST changes: -POTA-298 PO; +POTA1TAB14 PO; +PROM25TA12 PO; +SODIUM CHLORIDE 0.9% INJ 10 ML SYR IV SCH
[2022-11-09] MEDS ORDERED: PROMETHAZINE 25MG/ML 1ML VIAL IV ONE (16:40)
[2022-11-09] MEDS ORDERED: NS 1,000 ML IV ONE (16:40)
[2022-11-09 17:40] LABS: BASO % 0.4 % (0.0-1.0); EOS % 0.1 % (0.0-3.0); HEMATOCRIT 49.7 % (42.0-52.0); HEMOGLOBIN 16.7 g/dl (13.5-17.5); LYMPH # 1.2 10^3/uL (1.5-5.0); MEAN CORPUSCULAR HEMOGLOBIN 31.2 pg (27.0-33.0); MEAN CORPUSCULAR HGB CONC 33.6 g/dl (32.0-36.5); MEAN CORPUSCULAR VOLUME 92.7 fl (80.0-96.0); NEUTROPHILS # 8.3 10^3/uL (1.5-8.5); NEUTROPHILS % 78.8 % (36.0-66.0); PLATELET COUNT, AUTOMATED 233 10^3/uL (150-450); RED BLOOD COUNT 5.36 10^6/uL (4.30-6.10); WHITE BLOOD COUNT 10.5 10^3/uL (4.0-10.0)
[2022-11-09 18:09] LABS: CPK CREATINE PHOSPHOKINASE 61 U/L (46-171)
[2022-11-09 18:12] LABS: BLOOD UREA NITROGEN 77 MG/DL (9-23); CALCIUM LEVEL 10.2 MG/DL (8.5-10.1); CARBON DIOXIDE LEVEL > 40.0 MMOL/L (20-31); CHLORIDE LEVEL 81 MMOL/L (98-107); CK-MB VALUE MASS < 1.0 NG/ML (<3.6); CREATININE FOR GFR 1.96 MG/DL (0.70-1.30); FREE T4 1.68 NG/DL (0.89-1.76); GLOMERULAR FILTRATION RATE 37.7 (>56); GLUCOSE, FASTING 126 MG/DL (60-100); MAGNESIUM LEVEL 2.7 MG/DL (1.8-2.4); MB/CK RELATIVE INDEX 1.63 (< OR =4); POTASSIUM SERUM 3.1 MMOL/L (3.5-5.1); SODIUM LEVEL 137 MMOL/L (136-145); THYROID STIMULATING HORMONE 1.028 uIU/ML (0.55-4.78)
[2022-11-09 18:18] LABS: RSV AMPLIFICATION NEGATIVE (NEGATIVE)
[2022-11-09] MEDS ORDERED: KCL 10MEQ/100ML SWI (KRUN) 10 MEQ in IV 1 EA IV ONE ×2 (18:20→20:20)
[2022-11-09] MEDS ORDERED: NS 1,000 ML IV SCH ×2 (18:20→20:20)
[2022-11-09 19:05] LABS: CK-MB VALUE MASS < 1.0 NG/ML (<3.6)
[2022-11-09 19:06] LABS: CPK CREATINE PHOSPHOKINASE 53 U/L (46-171); MB/CK RELATIVE INDEX 1.88 (< OR =4)
[2022-11-09] MEDS ORDERED: ACETAMINOPHEN TAB 650MG DOSE (2X325MG) PO PRN (20:20)
[2022-11-09] MEDS ORDERED: MOM 30ML SUSPENSION UDC PO PRN (20:20)
[2022-11-09] MEDS ORDERED: MAALOX 30 ML SUSP *UDC PO PRN (20:20)
[2022-11-09] MEDS ORDERED: HOME MED LIST COMPLETE! XX SCH (20:25)
[2022-11-09 22:00] VITALS: BP 109/78
[2022-11-09] MEDS: HEPARIN SOD (PORCINE) 5000UNITS/ML 1ML VIAL/SYRINGE SC SCH (22:20)
[2022-11-09] MEDS: SUCRALFATE 1 GM TAB PO SCH (22:20)
[2022-11-09 22:30] VITALS: BP_SYST 109; BP_SYST 111; BP_SYST 93; BP_DIAS 66; BP_DIAS 78
[2022-11-10] VITALS (9 sets, daily range): BP systolic 75–125; BP diastolic 53–77
[2022-11-10] MEDS: HEPARIN SOD (PORCINE) 5000UNITS/ML 1ML VIAL/SYRINGE SC SCH ×3 (05:34→21:45)
[2022-11-10 07:18] LABS: BASO # 0.1 10^3/uL (0.0-0.2); BASO % 0.5 % (0.0-1.0); EOS % 0.2 % (0.0-3.0); HEMATOCRIT 48.9 % (42.0-52.0); HEMOGLOBIN 16.4 g/dl (13.5-17.5); LYMPH # 1.3 10^3/uL (1.5-5.0); LYMPH % 13.2 % (24.0-44.0); MEAN CORPUSCULAR HEMOGLOBIN 31.1 pg (27.0-33.0); MEAN CORPUSCULAR HGB CONC 33.5 g/dl (32.0-36.5); MEAN CORPUSCULAR VOLUME 92.8 fl (80.0-96.0); MONO # 1.1 10^3/uL (0.0-0.8); MONO % 11.1 % (2.0-8.0); NEUTROPHILS # 7.6 10^3/uL (1.5-8.5); NEUTROPHILS % 74.7 % (36.0-66.0); PLATELET COUNT, AUTOMATED 227 10^3/uL (150-450); RED BLOOD COUNT 5.27 10^6/uL (4.30-6.10); WHITE BLOOD COUNT 10.2 10^3/uL (4.0-10.0)
[2022-11-10 07:42] LABS: BLOOD UREA NITROGEN 90 MG/DL (9-23); CALCIUM LEVEL 9.4 MG/DL (8.5-10.1); CARBON DIOXIDE LEVEL > 40.0 MMOL/L (20-31); CHLORIDE LEVEL 81 MMOL/L (98-107); CREATININE FOR GFR 2.25 MG/DL (0.70-1.30); GLOMERULAR FILTRATION RATE 32.2 (>56); GLUCOSE, FASTING 122 MG/DL (60-100); MAGNESIUM LEVEL 2.6 MG/DL (1.8-2.4); POTASSIUM SERUM 2.9 MMOL/L (3.5-5.1); SODIUM LEVEL 138 MMOL/L (136-145)
[2022-11-10 08:25] LABS: ABG BASE EXCESS 18.7 (-2.0-2.0); ABG HCO3 45.1 MEQ/L (22.0-26.0); ABG O2 SATURATION 91.8 % (95.0-99.0); ABG PARTIAL PRESSURE CO2 54.5 mmHg (35.0-45.0); ABG PARTIAL PRESSURE O2 60.9 mmHg (75.0-100.0); ABG TOTAL CO2 46.8 MEQ/L (22.0-29.0); ABG pH (ARTERIAL) 7.536 UNITS (7.350-7.450)
[2022-11-10] MEDS ORDERED: LR 1,000 ML IV ONE (08:45)
[2022-11-10] MEDS: SUCRALFATE 1 GM TAB PO SCH ×4 (08:49→19:56)
[2022-11-10] MEDS: OMEPRAZOLE 20MG CAP PO SCH (08:50)
[2022-11-10] MEDS: ASPIRIN 81MG ENTERIC TABLET PO SCH (08:50)
[2022-11-10] MEDS: KCL 40MEQ in NS 1000ML 1,000 ML IV SCH ×3 (09:11→20:06)
[2022-11-10] MEDS ORDERED: SCOPOLAMINE 1MG TRANSDERMAL PATCH TOP SCH (10:00)
[2022-11-10 10:44] LABS: ALBUMIN 4.3 G/DL (3.2-5.2)
[2022-11-10 14:21] LABS: ALBUMIN 3.7 G/DL (3.2-5.2); BLOOD UREA NITROGEN 86 MG/DL (9-23); CALCIUM LEVEL 8.5 MG/DL (8.5-10.1); CARBON DIOXIDE LEVEL > 40.0 MMOL/L (20-31); CHLORIDE LEVEL 82 MMOL/L (98-107); CREATININE FOR GFR 1.67 MG/DL (0.70-1.30); GLOMERULAR FILTRATION RATE 45.4 (>56); GLUCOSE, FASTING 113 MG/DL (60-100); PHOSPHORUS LEVEL 6.2 MG/DL (2.5-4.9); POTASSIUM SERUM 3.3 MMOL/L (3.5-5.1); SODIUM LEVEL 134 MMOL/L (136-145)
[2022-11-10 14:57] LABS: CREATININE,RANDOM URINE 244.3 MG/DL
[2022-11-11] VITALS: BP 122/83
[2022-11-11 04:00] VITALS: BP 115/80
[2022-11-11] MEDS: HEPARIN SOD (PORCINE) 5000UNITS/ML 1ML VIAL/SYRINGE SC SCH (05:41)
[2022-11-11 05:53] VITALS: BP_SYST 118; BP_SYST 123; BP_SYST 124; BP_DIAS 80; BP_DIAS 81; BP_DIAS 83
[2022-11-11 07:02] LABS: BASO % 0.1 % (0.0-1.0); HEMATOCRIT 41.5 % (42.0-52.0); LYMPH # 1.3 10^3/uL (1.5-5.0); LYMPH % 15.9 % (24.0-44.0); MEAN CORPUSCULAR HEMOGLOBIN 30.9 pg (27.0-33.0); MEAN CORPUSCULAR VOLUME 93.5 fl (80.0-96.0); MONO # 0.7 10^3/uL (0.0-0.8); MONO % 8.2 % (2.0-8.0); NEUTROPHILS % 75.3 % (36.0-66.0); PLATELET COUNT, AUTOMATED 203 10^3/uL (150-450); RED BLOOD COUNT 4.44 10^6/uL (4.30-6.10); WHITE BLOOD COUNT 7.9 10^3/uL (4.0-10.0)
[2022-11-11 07:10] LABS: HEMOGLOBIN 13.7 g/dl (13.5-17.5)
[2022-11-11 07:30] LABS: BLOOD UREA NITROGEN 62 MG/DL (9-23); CALCIUM LEVEL 8.5 MG/DL (8.5-10.1); CARBON DIOXIDE LEVEL 32 MMOL/L (20-31); CHLORIDE LEVEL 94 MMOL/L (98-107); CREATININE FOR GFR 0.93 MG/DL (0.70-1.30); GLOMERULAR FILTRATION RATE > 60.0 (>56); GLUCOSE, FASTING 120 MG/DL (60-100); MAGNESIUM LEVEL 2.1 MG/DL (1.8-2.4); POTASSIUM SERUM 3.6 MMOL/L (3.5-5.1); SODIUM LEVEL 133 MMOL/L (136-145)
[2022-11-11] MEDS ORDERED: POTASSIUM CHLORIDE 10MEQ SR TABLET PO ONE (07:40)
[2022-11-11 08:09] VITALS: BP 128/109
[2022-11-11] MEDS: OMEPRAZOLE 20MG CAP PO SCH (08:09)
[2022-11-11] MEDS: ASPIRIN 81MG ENTERIC TABLET PO SCH (08:09)
[2022-11-11] MEDS: SUCRALFATE 1 GM TAB PO SCH ×2 (08:09→12:30)
[2022-11-11] MEDS ORDERED: TRAN1DIS4 TOP (10:40)
[2022-11-11] MEDS ORDERED: DEXA4TA PO (10:40)
== END 2022-11-11 13:37 | disposition home or self-care (01) | DRG 469 ==
LOC: M ED 16:17 → EDBD 16:17 → M ED INP 20:15 → ENRESERV 21:15 → M MSPAV 21:56
PROVIDERS: ADMIT Family Medicine; ATTEND Internal Medicine
DX: N17.9 Acute kidney failure, unspecified (principal); E87.3 Alkalosis; C78.7 Secondary malignant neoplasm of liver and intrahepatic bile duct; C78.00 Secondary malignant neoplasm of unspecified lung; K31.5 Obstruction of duodenum; E87.1 Hypo-osmolality and hyponatremia; E83.39 Other disorders of phosphorus metabolism; C17.0 Malignant neoplasm of duodenum; J43.9 Emphysema, unspecified; F17.200 Nicotine dependence, unspecified, uncomplicated; R11.2 Nausea with vomiting, unspecified; T45.1X5A Adverse effect of antineoplastic and immunosuppressive drugs, initial encounter; R42 Dizziness and giddiness; E86.0 Dehydration; E87.6 Hypokalemia; K21.9 Gastro-esophageal reflux disease without esophagitis; I10 Essential (primary) hypertension; R94.31 Abnormal electrocardiogram [ECG] [EKG]; Z88.8 Allergy status to other drugs, medicaments and biological substances; Z79.82 Long term (current) use of aspirin; Z79.899 Other long term (current) drug therapy

== ENCOUNTER → 2022-11-17 | Outpatient (REF) | payer BC, MEDICAID ==
[~2022-11-17] MED LIST changes: +DEXA4TA PO; +POTA-298 PO; -POTA1TAB14 PO; -SODIUM CHLORIDE 0.9% INJ 10 ML SYR IV SCH; +TRAN1DIS4 TOP
[2022-11-17 18:33] LABS: BLOOD UREA NITROGEN 31 MG/DL (9-23); CALCIUM LEVEL 8.5 MG/DL (8.5-10.1); CARBON DIOXIDE LEVEL 32 MMOL/L (20-31); CHLORIDE LEVEL 103 MMOL/L (98-107); CREATININE FOR GFR 0.74 MG/DL (0.70-1.30); GLOMERULAR FILTRATION RATE > 60.0 (>56); GLUCOSE, FASTING 119 MG/DL (60-100); POTASSIUM SERUM 3.9 MMOL/L (3.5-5.1); SODIUM LEVEL 138 MMOL/L (136-145)
== END ==
LOC: M SFHCCLAY 14:44
PROVIDERS: ATTEND Nurse Practitioner Family
DX: N17.9 Acute kidney failure, unspecified (principal)

== ENCOUNTER → 2022-12-22 | Outpatient (CLI) | payer BC, MEDICAID ==
[~2022-12-22] MED LIST changes: +IBUP-1022 PO; +MEDR4PAK PO
== END ==
LOC: M RAD 13:57
PROVIDERS: ATTEND Internal Medicine Pulmonary Disease
DX: R91.8 Other nonspecific abnormal finding of lung field (principal); I70.0 Atherosclerosis of aorta; I25.10 Atherosclerotic heart disease of native coronary artery without angina pectoris

== ENCOUNTER 2022-12-27 11:48 | Emergency (ER) | payer BC, MEDICAID ==
[~2022-12-27] VITALS: Ht 182.9 cm; Wt 72.8 kg
[~2022-12-27 11:48] MED LIST changes: -IBUP-1022 PO; -MEDR4PAK PO
[2022-12-27] MEDS ORDERED: PERCOCET 5MG/325MG TAB PO ONE (15:30)
[2022-12-27] MEDS ORDERED: IBUP-1022 PO (16:41)
[2022-12-27] MEDS ORDERED: MEDR4PAK PO (16:41)
[2022-12-27] MEDS ORDERED: KETOROLAC 30 MG/ML 1ML VIAL IM ONE (16:45)
[2022-12-27] MEDS ORDERED: predniSONE 20 MG TAB PO ONE (16:45)
[2022-12-27 17:00] VITALS: BP 155/83; TEMP 97; O2SAT 98
== END 2022-12-27 17:00 | disposition home or self-care (01) ==
LOC: M ED 11:48
DX: M54.30 Sciatica, unspecified side (principal); W10.8XXA Fall (on) (from) other stairs and steps, initial encounter; Y92.009 Unspecified place in unspecified non-institutional (private) residence as the place of occurrence of the external cause; I10 Essential (primary) hypertension; Z85.07 Personal history of malignant neoplasm of pancreas; F17.200 Nicotine dependence, unspecified, uncomplicated; Z79.82 Long term (current) use of aspirin; Z88.4 Allergy status to anesthetic agent
CPT/HCPCS: 72110; 72190; 73502; 96372; 99283; J1885; J7512

== ENCOUNTER 2023-01-26 18:15 | Emergency (ER) | payer BC, MEDICAID ==
[~2023-01-26] VITALS: Ht 182.9 cm; Wt 66.7 kg
[~2023-01-26 18:15] MED LIST changes: +IBUP-1022 PO; +MEDR4PAK PO
[2023-01-26 18:24] VITALS: TEMP 96.5
[2023-01-26] MEDS ORDERED: PERCOCET 5MG/325MG TAB PO ONE (19:20)
[2023-01-26] MEDS ORDERED: NORCO 5/325MG TABLET (HOME DOSE PACK) PO ONE (21:25)
[2023-01-26 21:45] VITALS: BP 135/77
[2023-01-26 21:46] VITALS: O2SAT 94
[2023-02-06] MEDS ORDERED: OXYC1TAB23 PO (13:51)
[2023-02-15] MEDS ORDERED: POTA-298 PO (15:46)
[2023-02-16] MEDS ORDERED: GABA-282 PO (11:48)
[2023-02-16] MEDS ORDERED: OXYC1TAB23 PO (11:48)
[2023-03-14] MEDS ORDERED: OMEP-173 PO (09:57)
== END 2023-01-26 21:55 | disposition home or self-care (01) ==
LOC: EDBD 18:15 → M ED 18:15
DX: M84.58XA Pathological fracture in neoplastic disease, other specified site, initial encounter for fracture (principal); S32.10XA Unspecified fracture of sacrum, initial encounter for closed fracture; C24.9 Malignant neoplasm of biliary tract, unspecified; C34.90 Malignant neoplasm of unspecified part of unspecified bronchus or lung; Z92.21 Personal history of antineoplastic chemotherapy; K21.9 Gastro-esophageal reflux disease without esophagitis; I10 Essential (primary) hypertension; J44.9 Chronic obstructive pulmonary disease, unspecified; Z79.82 Long term (current) use of aspirin

== ENCOUNTER → 2023-01-27 | Outpatient (CLI) | payer BC, MEDICAID | LOC: M ONCR 14:30 | PROVIDERS: ATTEND General Practice | DX: C79.51 Secondary malignant neoplasm of bone (principal); C17.0 Malignant neoplasm of duodenum; I10 Essential (primary) hypertension; R91.8 Other nonspecific abnormal finding of lung field; Z71.2 Person consulting for explanation of examination or test findings; Z79.82 Long term (current) use of aspirin; Z79.899 Other long term (current) drug therapy; Z80.0 Family history of malignant neoplasm of digestive organs; Z87.891 Personal history of nicotine dependence; Z88.8 Allergy status to other drugs, medicaments and biological substances; Z92.21 Personal history of antineoplastic chemotherapy ==

== ENCOUNTER → 2023-02-13 | Outpatient (RCR) | payer BC, MEDICAID ==
[~2023-02-13] MED LIST changes: +GABA-282 PO; +OXYC1TAB23 PO
== END ==
LOC: M ONCR 01-30 10:10
PROVIDERS: ATTEND General Practice
DX: C79.51 Secondary malignant neoplasm of bone (principal)

== ENCOUNTER → 2023-02-16 | Outpatient (CLI) | payer MEDICAID ==
[~2023-02-16] VITALS: Ht 182.9 cm; Wt 62.8 kg
[2023-02-16 10:52] VITALS: BP 117/75; O2SAT 96
== END ==
LOC: M PAL 10:02
PROVIDERS: ATTEND Nurse Practitioner Adult Health
DX: C17.0 Malignant neoplasm of duodenum (principal); C78.7 Secondary malignant neoplasm of liver and intrahepatic bile duct; C78.00 Secondary malignant neoplasm of unspecified lung; C79.51 Secondary malignant neoplasm of bone; Z51.5 Encounter for palliative care; Z92.21 Personal history of antineoplastic chemotherapy; Z92.3 Personal history of irradiation; G89.3 Neoplasm related pain (acute) (chronic); Z79.891 Long term (current) use of opiate analgesic; G62.0 Drug-induced polyneuropathy; R63.0 Anorexia; Z66 Do not resuscitate; Z80.0 Family history of malignant neoplasm of digestive organs; Z87.891 Personal history of nicotine dependence; Z88.4 Allergy status to anesthetic agent; Z79.899 Other long term (current) drug therapy

== ENCOUNTER 2023-02-18 09:39 | Emergency (ER) | payer MEDICAID ==
[~2023-02-18] VITALS: Ht 182.9 cm; Wt 63.0 kg
[2023-02-18 09:40] VITALS: TEMP 98
[2023-02-18] MEDS ORDERED: MAGNESIUM CITRATE 300ML BTL PO ONE (12:00)
[2023-02-18 12:32] VITALS: BP 134/67; O2SAT 96
== END 2023-02-18 12:35 | disposition home or self-care (01) ==
LOC: M ED 09:39
DX: K59.00 Constipation, unspecified (principal); R91.8 Other nonspecific abnormal finding of lung field; Z95.828 Presence of other vascular implants and grafts; C17.0 Malignant neoplasm of duodenum; F17.200 Nicotine dependence, unspecified, uncomplicated; Z79.82 Long term (current) use of aspirin; Z88.4 Allergy status to anesthetic agent

== ENCOUNTER → 2023-02-28 | Outpatient (CLI) | payer BC, MEDICAID ==
[~2023-02-28] MED LIST changes: +GASTROGRAFIN SOLUTION 30ML As Ordered ONE; +ISOVUE-370 76% 100ML VIAL As Ordered ONE
== END ==
LOC: M RAD 12:46
PROVIDERS: ATTEND Internal Medicine Hematology & Oncology
DX: C17.0 Malignant neoplasm of duodenum (principal)
CPT/HCPCS: 74177; Q9963; Q9967

== ENCOUNTER 2023-03-16 06:56 | Emergency (ER) | payer BC, MEDICAID ==
[~2023-03-16] VITALS: Ht 182.9 cm; Wt 62.0 kg
[~2023-03-16 06:56] MED LIST changes: -GASTROGRAFIN SOLUTION 30ML As Ordered ONE; -ISOVUE-370 76% 100ML VIAL As Ordered ONE
[2023-03-16] MEDS ORDERED: KETOROLAC 30 MG/ML 1ML VIAL IV ONE (07:55)
[2023-03-16 08:28] LABS: BASO # 0.1 10^3/uL (0.0-0.2); BASO % 0.9 % (0.0-1.0); EOS # 0.2 10^3/uL (0.0-0.5); EOS % 1.6 % (0.0-3.0); HEMATOCRIT 35.8 % (42.0-52.0); HEMOGLOBIN 11.8 g/dl (13.5-17.5); LYMPH # 1.2 10^3/uL (1.5-5.0); LYMPH % 10.4 % (24.0-44.0); MEAN CORPUSCULAR HEMOGLOBIN 30.4 pg (27.0-33.0); MEAN CORPUSCULAR VOLUME 92.3 fl (80.0-96.0); MONO # 1.4 10^3/uL (0.0-0.8); MONO % 12.9 % (2.0-8.0); NEUTROPHILS # 7.8 10^3/uL (1.5-8.5); NEUTROPHILS % 69.7 % (36.0-66.0); PLATELET COUNT, AUTOMATED 171 10^3/uL (150-450); RED BLOOD COUNT 3.88 10^6/uL (4.30-6.10); WHITE BLOOD COUNT 11.2 10^3/uL (4.0-10.0)
[2023-03-16 08:50] LABS: LIPASE 23 U/L (12-53)
[2023-03-16 08:52] LABS: ALBUMIN 3.1 G/DL (3.2-5.2); ALKALINE PHOSPHATASE 187 U/L (46-116); ALT/SGPT 27 U/L (7.0-40); AST/SGOT 95 U/L (<34); BILIRUBIN,DIRECT 0.2 MG/DL (<0.4); BILIRUBIN,TOTAL 0.4 MG/DL (0.3-1.2); BLOOD UREA NITROGEN 20 MG/DL (9-23); CALCIUM LEVEL 8.9 MG/DL (8.5-10.1); CARBON DIOXIDE LEVEL 26 MMOL/L (20-31); CHLORIDE LEVEL 107 MMOL/L (98-107); CREATININE FOR GFR 0.51 MG/DL (0.70-1.30); GLOMERULAR FILTRATION RATE > 60.0 (>56); GLUCOSE, FASTING 106 MG/DL (60-100); POTASSIUM SERUM 3.2 MMOL/L (3.5-5.1); SODIUM LEVEL 141 MMOL/L (136-145); TOTAL PROTEIN 6.5 G/DL (5.7-8.2)
[2023-03-16] MEDS: GASTROGRAFIN SOLUTION 30ML PO SCH ×2 (08:57→09:54)
[2023-03-16] MEDS ORDERED: ISOVUE-370 76% 100ML VIAL As Ordered ONE (09:54)
[2023-03-16] MEDS ORDERED: ONDANSETRON 4MG 2ML VIAL IV ONE (10:15)
[2023-03-16] MEDS ORDERED: MORPHINE 4 MG/ML 1ML VIAL IV ONE (10:15)
[2023-03-16] MEDS ORDERED: PERC5TAB12 PO (11:22)
[2023-03-16 11:27] VITALS: BP 119/69; TEMP 97; O2SAT 96
== END 2023-03-16 11:56 | disposition home or self-care (01) ==
LOC: M ED 07:55
DX: R10.11 Right upper quadrant pain (principal); I10 Essential (primary) hypertension; C17.0 Malignant neoplasm of duodenum; F17.200 Nicotine dependence, unspecified, uncomplicated; J44.9 Chronic obstructive pulmonary disease, unspecified; R91.8 Other nonspecific abnormal finding of lung field; Z79.82 Long term (current) use of aspirin; Z88.8 Allergy status to other drugs, medicaments and biological substances
CPT/HCPCS: 71046; 74177; 76705; 80047; 80048; 80076; 83690; 85025; 93005; 96374; 96375; 99284; J1885; J2405; Q9963; Q9967

== ENCOUNTER 2023-03-21 21:16 | Emergency (ER) | payer MEDICAID ==
[~2023-03-21] VITALS: Ht 182.9 cm; Wt 59.8 kg
[~2023-03-21 21:16] MED LIST changes: +PERC5TAB12 PO
[2023-03-21 21:29] VITALS: BP 135/75; TEMP 96.6; O2SAT 95
[2023-03-21 23:04] LABS: BASO # 0.2 10^3/uL (0.0-0.2); BASO % 0.8 % (0.0-1.0); EOS # 0.2 10^3/uL (0.0-0.5); EOS % 0.9 % (0.0-3.0); HEMATOCRIT 40.1 % (42.0-52.0); HEMOGLOBIN 12.9 g/dl (13.5-17.5); LYMPH # 1.7 10^3/uL (1.5-5.0); LYMPH % 7.5 % (24.0-44.0); MEAN CORPUSCULAR HEMOGLOBIN 29.5 pg (27.0-33.0); MEAN CORPUSCULAR HGB CONC 32.2 g/dl (32.0-36.5); MEAN CORPUSCULAR VOLUME 91.8 fl (80.0-96.0); MONO % 7.2 % (2.0-8.0); NEUTROPHILS # 18.3 10^3/uL (1.5-8.5); NEUTROPHILS % 79.8 % (36.0-66.0); PLATELET COUNT, AUTOMATED 250 10^3/uL (150-450); RED BLOOD COUNT 4.37 10^6/uL (4.30-6.10); WHITE BLOOD COUNT 22.9 10^3/uL (4.0-10.0)
[2023-03-21 23:20] LABS: LIPASE 22 U/L (12-53)
[2023-03-21 23:22] LABS: ALBUMIN 3.2 G/DL (3.2-5.2); ALKALINE PHOSPHATASE 285 U/L (46-116); ALT/SGPT 29 U/L (7.0-40); AST/SGOT 82 U/L (<34); BILIRUBIN,DIRECT 0.2 MG/DL (<0.4); BILIRUBIN,TOTAL 0.5 MG/DL (0.3-1.2); BLOOD UREA NITROGEN 23 MG/DL (9-23); CALCIUM LEVEL 9.1 MG/DL (8.5-10.1); CARBON DIOXIDE LEVEL 29 MMOL/L (20-31); CHLORIDE LEVEL 102 MMOL/L (98-107); CREATININE FOR GFR 0.58 MG/DL (0.70-1.30); GLOMERULAR FILTRATION RATE > 60.0 (>56); GLUCOSE, FASTING 117 MG/DL (60-100); POTASSIUM SERUM 4.1 MMOL/L (3.5-5.1); SODIUM LEVEL 138 MMOL/L (136-145); TOTAL PROTEIN 7.6 G/DL (5.7-8.2)
[2023-03-21 23:26] LABS: MONO # 1.6 10^3/uL (0.0-0.8)
[2023-03-23] MEDS ORDERED: POTA-298 PO (08:22)
== END 2023-03-22 00:27 | disposition left against medical advice (07) ==
LOC: M ED 21:16
DX: Z53.21 Procedure and treatment not carried out due to patient leaving prior to being seen by health care provider (principal)

== ENCOUNTER → 2023-03-23 | Outpatient (CLI) | payer BC, MEDICAID ==
[~2023-03-23] VITALS: Ht 182.9 cm; Wt 60.5 kg
[2023-03-23 08:17] VITALS: BP 109/75; TEMP 97.2; O2SAT 95
== END ==
LOC: M PAL 08:05
PROVIDERS: ATTEND Nurse Practitioner Adult Health
DX: C17.0 Malignant neoplasm of duodenum (principal); C78.7 Secondary malignant neoplasm of liver and intrahepatic bile duct; C78.00 Secondary malignant neoplasm of unspecified lung; C79.51 Secondary malignant neoplasm of bone; G62.0 Drug-induced polyneuropathy; G89.3 Neoplasm related pain (acute) (chronic); R63.0 Anorexia; Z51.5 Encounter for palliative care; Z66 Do not resuscitate; Z92.21 Personal history of antineoplastic chemotherapy; Z92.3 Personal history of irradiation; Z79.1 Long term (current) use of non-steroidal anti-inflammatories (NSAID); Z79.82 Long term (current) use of aspirin; Z79.891 Long term (current) use of opiate analgesic; Z79.899 Other long term (current) drug therapy; Z80.0 Family history of malignant neoplasm of digestive organs; Z87.891 Personal history of nicotine dependence; Z88.4 Allergy status to anesthetic agent